=== PATIENT | male | born 1945 | race Caucasian/White ===

== ENCOUNTER → 2017-08-24 14:01 | Outpatient (CLI) | payer MEDICARE, SELFPAY ==
[2017-08-24 15:02] LABS: Absolute Lymphocyte Count 1.33 X10^3/ul (0.83-4.51); Absolute Neutrophil Count 4.2 X10^3/uL (2.0-7.7); Basophil# 0.06 X10^3/uL; Basophil% 0.9 % (0-1); Eosinophil# 0.25 X10^3/uL; Eosinophils% 3.7 % (0-5); Hematocrit 43.4 % (40-54); Hemoglobin 14.6 g/dl (13.0-16.5); Lymphocyte # 1.33 X10^3/ul (4.0); Lymphocyte % 19.9 % (19-41); Mean Corp Hgb Conc 33.6 g/gl (32-36); Mean Corpuscular Hgb 29.4 pg (27.0-32.0); Mean Corpuscular Volume 87.5 fL (80-94); Mean Platelet Vol. 11.6 fl (6.2-12.0); Monocyte% 11.9 % (0-10); Neutrophil # 4.24 X10^3/uL (2.7-7.7); Neutrophil % 63.3 % (47-70); Platelet Count 170 K/mm3 (150-450); RBC Distribution Width CV 14.1 % (11.6-14.6); RBC Distribution Width SD 44.6 fl (35.1-43.9); Red Blood Count 4.96 M/mm3 (4.6-6.2); White Blood Count 6.7 K/mm3 (4.4-11.0)
[2017-08-24 15:08] LABS: POSITIVE COUNT NO; POSITIVE DIFFERENTIAL NO; POSITIVE MORPHOLOGY NO
[2017-08-24 15:19] LABS: ALB/GLOB Ratio 1.1 RATIO (0.9-2.4); AST(SGOT) 30 U/L (15-37); Alanine Aminotransfer ALT/SGPT 67 U/L (16-61); Albumin, Serum 3.9 g/dL (3.2-5.0); Alkaline Phosphatase 59 U/L (45-117); Anion Gap 7 (5-15); BUN 23 mg/dL (7-18); BUN/Creat Ratio 18.5 RATIO (10-20); Chloride 106 mmol/L (98-107); Creatinine, Serum 1.24 mg/dL (0.70-1.30); EST Glomerular Filtration Rate 61 mL/min (>60); Est Glom Filt Rate - Afr Amer 74 mL/min (>60); Globulin 3.6 g/dL (2.2-4.2); Glucose 189 mg/dL (74-106); Potassium 4.8 mmol/L (3.5-5.1); Protein, Total 7.5 g/dL (6.4-8.2); Sodium Level 142 mmol/L (136-145); Thyroid Stim Hormone (TSH) 2.42 uIU/mL (0.358-3.74)
[2017-08-25 08:32] LABS: Vitamin D,25 Hydroxy 32.7 ng/mL (29.95-100.01)
== END ==
PROVIDERS: Family Provider Family Medicine Geriatric Medicine; PCP Family Medicine Geriatric Medicine; Visit Provider Family Medicine Geriatric Medicine
DX: E11.9 Type 2 diabetes mellitus without complications (principal); I10 Essential (primary) hypertension; E55.9 Vitamin D deficiency, unspecified
CPT/HCPCS: 36415; 80053; 82306; 84443; 85025

== ENCOUNTER 2017-09-21 18:44 | Inpatient (IN) | payer MEDICARE, OTHER, SELFPAY ==
[2017-09-21] VITALS (10 sets, daily range): BP systolic 110–139; BP diastolic 62–71; PULSE 70–83; RESP 13–20; TEMP 36.6–36.7; O2SAT 95–98; BMI 40.2; BMI 36.5; BMI 36.6
--- NOTE | 2017-09-21 16:12 | RAD_ITS ---
STUDY: X-RAY CHEST REASON FOR EXAM: Male, 71 years old. Chest pain TECHNIQUE: AP portable COMPARISON: None. FINDINGS: Diminished inspiratory effort is seen. Is minor scarring in the left lower lobe. No acute infiltration present.. There is no demonstrated pleural abnormality. Normal size heart. Normal mediastinum and j carlos. Normal visualized pulmonary arteries. Tortuous aortic arch and descending thoracic aorta. Dorsal spine demonstrates spondylosis Normal visualized ribs, clavicles, and shoulders. There is no demonstrated abnormality of the visualized soft tissue structures of the upper abdomen. RAD/Chest 1 View (Portable) IMPRESSION: No acute cardiopulmonary pathology Electronically Signed: Rich Valadez MD at 19:47 EDT , Service support ,
--- NOTE | 2017-09-21 19:04 | EKG12_ITS ---
Test Reason : CP Blood Pressure : / mmHG Vent. Rate : 080 BPM Atrial Rate : 080 BPM P-R Int : 258 ms QRS Dur : 094 ms QT Int : 362 ms P-R-T Axes : -06 -05 002 degrees QTc Int : 417 ms Sinus rhythm with 1st degree A-V block Otherwise normal ECG Confirmed by MELANY SAMSON, WILBER ([id number]), tape editor GEGE KAT ([id number]) on 09/24/2017 3:31:50 PM Referred By: ANAM
--- NOTE | 2017-09-21 19:07 | ED.VISSUMM ---
- ER Visit Summary Date of Service: 09/21/17 Chief Complaint: Chest pain History of Present Illness: The patient is a 71 M increasing frequency of chest tightness over the past week. Symptoms worse with light activity. No pain down the arms. Does complain of exertional dyspnea. No cough or wheeze. States he will get hiccups with the symptoms. Symptoms would go away when he rests. History of hypertension, diabetes, hypercholesterolemia. Remote tobacco 20 years ago. No family history of MIs at a young age. No stress test or heart cath in the past. No PE risk factors. Currently denies any symptoms. He takes a baby aspirin daily, took one this morning. Physical Examination: General: Alert and oriented ?3, no acute distress HEENT: Normocephalic, atraumatic. Moist mucosa membranes Neck: supple, nontender. Cardiovascular: Regular rate and rhythm, no murmurs Respiratory: Normal breath sounds, symmetric, no distress Abdomen: Soft, nontender, nondistended Extremities: Nontender, no edema, pulses intact ?4 Neuro: no focal neurological deficits. Test Results: EKG: Sinus rate of 80, no ST changes. T-wave flattening inferior leads, a small Q waves inferior leads. Troponin negative. Creatinine 1.38. Creatinine clearance of 54. Chest x-ray negative. Emergency Department Course and Treatment: Patient currently symptom-free. EKG chronic changes from comparison of July 2015. He was seen for flank pain at that time with a kidney stone. Cardiac workup negative. Creatinine 1.38. Creatinine 1.15-1.51 from previous labs. He was given additional aspirin. History concerns for stable angina with exertional symptoms. He has no PE risk factors. I spoke with covering sanitation associate, Dr. Stallworth discussed and reviewed the patient's history. He recommends 1 dose of Lovenox tonight, none in the morning. He recommended Brilinta 180 mg and plan for heart catheterizations in the morning after his evaluation. He requests to him to be n.p.o. at midnight. Currently hospitalist is on page for admission. Treatment Plan: [] Disposition: Admission Impression: Stable angina This note was generated with [employer] dictation software. It may contain incorrect words, spelling, and punctuation that were not noted in review of the chart prior to signing ED Disposition - Plan for ED Patient: Disposition: Acute Care Hospital [facility] Chief Complaint: Chest Pain Diagnosis: Stable angina Referrals: Max Nunez Chi, MD [Primary Care Provider] -
--- NOTE | 2017-09-21 19:11 | ED.DCSUM_ITS ---
- ER Visit Summary Date of Service: 09/21/17 Chief Complaint: Chest pain History of Present Illness: The patient is a 71 M increasing frequency of chest tightness over the past week. Symptoms worse with light activity. No pain down the arms. Does complain of exertional dyspnea. No cough or wheeze. States he will get hiccups with the symptoms. Symptoms would go away when he rests. History of hypertension, diabetes, hypercholesterolemia. Remote tobacco 20 years ago. No family history of MIs at a young age. No stress test or heart cath in the past. No PE risk factors. Currently denies any symptoms. He takes a baby aspirin daily, took one this morning. Physical Examination: General: Alert and oriented ?3, no acute distress HEENT: Normocephalic, atraumatic. Moist mucosa membranes Neck: supple, nontender. Cardiovascular: Regular rate and rhythm, no murmurs Respiratory: Normal breath sounds, symmetric, no distress Abdomen: Soft, nontender, nondistended Extremities: Nontender, no edema, pulses intact ?4 Neuro: no focal neurological deficits. Test Results: EKG: Sinus rate of 80, no ST changes. T-wave flattening inferior leads, a small Q waves inferior leads. Troponin negative. Creatinine 1.38. Creatinine clearance of 54. Chest x-ray negative. Emergency Department Course and Treatment: Patient currently symptom-free. EKG chronic changes from comparison of July 2015. He was seen for flank pain at that time with a kidney stone. Cardiac workup negative. Creatinine 1.38. Creatinine 1.15-1.51 from previous labs. He was given additional aspirin. History concerns for stable angina with exertional symptoms. He has no PE risk factors. I spoke with covering flower pot press operator, Dr. Stallworth discussed and reviewed the patient's history. He recommends 1 dose of Lovenox tonight, none in the morning. He recommended Brilinta 180 mg and plan for heart catheterizations in the morning after his evaluation. He requests to him to be n.p.o. at midnight. Currently hospitalist is on page for admission. Treatment Plan: [] Disposition: Admission Impression: Stable angina This note was generated with [employer] dictation software. It may contain incorrect words, spelling, and punctuation that were not noted in review of the chart prior to signing ED Disposition - Plan for ED Patient: Disposition: Acute Care Hospital [facility] Chief Complaint: Chest Pain Diagnosis: Stable angina Referrals: Max Nunez Chi, MD [Primary Care Provider] -
[2017-09-21] MEDS: Aspirin 81 MG TAB.CHEW 273 MG PO (19:19)
[2017-09-21 19:32] LABS: Absolute Lymphocyte Count 1.82 X10^3/ul (0.83-4.51); Absolute Neutrophil Count 5.6 X10^3/uL (2.0-7.7); Basophil# 0.03 X10^3/uL; Basophil% 0.4 % (0-1); Eosinophil# 0.22 X10^3/uL; Eosinophils% 2.7 % (0-5); Hematocrit 43.4 % (40-54); Hemoglobin 14.4 g/dl (13.0-16.5); Lymphocyte # 1.82 X10^3/ul (4.0); Mean Corp Hgb Conc 33.2 g/gl (32-36); Mean Corpuscular Hgb 29.3 pg (27.0-32.0); Mean Corpuscular Volume 88.4 fL (80-94); Mean Platelet Vol. 11.1 fl (6.2-12.0); Monocyte% 7.3 % (0-10); Neutrophil # 5.58 X10^3/uL (2.7-7.7); Neutrophil % 67.5 % (47-70); POSITIVE COUNT NO; POSITIVE DIFFERENTIAL NO; POSITIVE MORPHOLOGY NO; Platelet Count 163 K/mm3 (150-450); RBC Distribution Width CV 14.2 % (11.6-14.6); RBC Distribution Width SD 45.8 fl (35.1-43.9); Red Blood Count 4.91 M/mm3 (4.6-6.2); White Blood Count 8.3 K/mm3 (4.4-11.0)
[2017-09-21 19:46] LABS: International Normalized Ratio 1.1; Prothrombin Time (Protime)PT. 13.9 SECONDS (11.7-14.9)
[2017-09-21 19:47] LABS: Partial Thromboplast Time 29.9 Seconds (24.1-36.2)
[2017-09-21 19:57] LABS: Anion Gap 8 (5-15); BUN 28 mg/dL (7-18); BUN/Creat Ratio 20.3 RATIO (10-20); Calcium,Total 9.3 mg/dL (8.5-10.1); Chloride 110 mmol/L (98-107); Creatinine, Serum 1.38 mg/dL (0.70-1.30); EST Glomerular Filtration Rate 54 mL/min (>60); Est Glom Filt Rate - Afr Amer 65 mL/min (>60); Estimated Creatinine Clearance 37.92 ml/min; Glucose 124 mg/dL (74-106); Potassium 4.1 mmol/L (3.5-5.1); Sodium Level 143 mmol/L (136-145)
[2017-09-21] MEDS: TICAGRELOR 90 MG TABLET 180 MG PO (20:44)
[2017-09-21] MEDS: Enoxaparin 100 MG/ML Syringe SC (20:44)
--- NOTE | 2017-09-21 21:08 | PCM.HP.STD ---
Problem List (1) History of kidney stones Status: Chronic (2) Type 2 diabetes mellitus Status: Chronic (3) Hypothyroidism Status: Chronic (4) Hyperlipidemia Status: Chronic (5) Hypertension Status: Chronic (6) Stable angina Status: Acute History of Present Illness Date of Admission: 09/21/17 Chief Complaint: Chest pain. The patient is a 71 year old M with past medical history as mentioned above presented to the emergency room because of chest pain. Her symptoms started around 1 week ago with central chest pain, across his chest, comes on mainly on minimal exertion, relieved by rest, described as tightness, 4-5 out of 10 in severity, not radiating, no relieving factors and without other associated symptoms. He denied associated shortness of breath, palpitation, dizziness or lightheadedness. He denies syncope or presyncope. This pain has been going on for 1 week on and off and comes on mainly with minimal exertion. In the emergency department, his vital signs were stable. His routine blood work was remarkable for creatinine of 1.38, otherwise normal. Troponin was negative. EKG revealed normal sinus rhythm with first-degree AV block, VT interval of 258 ms and no acute ischemic changes. Chest x-ray showed no acute infiltrate, consolidation or effusion. He is being admitted for chest pain, angina pectoris for evaluation. Past Medical History Past Medical History (Chronic Problems): Chronic Problems History of kidney stones (Chronic) Type 2 diabetes mellitus (Chronic) Hypothyroidism (Chronic) Hyperlipidemia (Chronic) Hypertension (Chronic) Allergies morphine Allergy (Verified 09/21/17 18:47) Other tetracycline Allergy (Verified 09/21/17 18:47) Nausea/Vom/Diarrhea Home Medications: Ambulatory Orders Medication Instructions Recorded Aspirin [Aspirin, Baby] 162 mg PO DAILY@0800 07/28/15 Atorvastatin Calcium [Lipitor] 40 mg PO QHS 07/28/15 Diltiazem HCl [Diltiazem ER] 240 mg PO DAILY 07/28/15 Glimepiride [Amaryl] 4 mg PO BID 07/28/15 Losartan/Hydrochlorothiazide 1 tab PO DAILY 07/28/15 [Hyzaar 100-12.5 Tablet] Metformin(XR) [Glucophage Xr] 1,000 mg PO BID 07/28/15 Multivitamin [Daily Multiple 1 each PO DAILY 07/28/15 Vitamin] Levothyroxine [Synthroid] 25 mcg PO DAILY 09/21/17 Surgical History: cholecystectomy Psychiatric History: No pertinent psych hx Lives: Spouse/ Significant Other Smoking Status: Former smoker Alcohol: None Drugs: None - *Family History Maternal History Items: No pertinent history Paternal History Items: No pertinent history Review of Systems Constitutional: Denies: Anorexia, Chills, Fever, Weakness Eyes: Denies: Blurred vision, Double vision, Drainage, Redness HEENT: Denies: Difficulty Hearing, Dysphasia, Ear Pain, Eye Pain, Nasal Congestion, Sore Throat Cardiovascular: Reports: Chest Pain, Chest Tightness. Denies: Heaviness, Light Headedness, Orthopnea, Paroxysmal Noc. Dyspnea, Syncope Respiratory: Denies: Cough, Hemoptysis, Pleuritic Pain, Shortness of Breath, Sputum production, Wheezing Gastrointestinal: Denies: Abdominal Pain, Constipation, Diarrhea, Nausea, Vomiting Genitourinary: Denies: Dysuria, Frequency, Hematuria Musculoskeletal: Denies: Arm Pain, Back Pain, Foot Pain Skin: Denies: Dryness, Rash Neurological: Denies: Balance problems, Blurred vision, Double vision, Change in Speech, Confusion, Incoordination, Numbness Psychiatric: Denies: Anxiety, Depression Endocrine: Denies: Change in Body Habitus, Polydipsia VTE Information - Inpt Only VTE Present on Admission: No VTE Mechan Device Prophylaxis: None VTE Pharm Prophylaxis ordered?: Yes Patient Problems: Active and Suspected Problems Stable angina (Acute) - Physical Exam General: Alert, Oriented x3, Cooperative, No apparent distress HEENT: Atraumatic, PERRLA, EOMI Oral: Moist Mucosa, No Gingival or Mucosal Lesions/ Ulcerations Neck: Supple, No JVD, Negative Carotid Bruits, Trachea Midline, Thyroid Normal Size and Texture Lungs: Clear to auscultation, Normal air movement, No rhonchi, No wheeze, No rales Cardiovascular: Regular rate, Regular Rhythm, Normal S1, Normal S2, No murmurs, PMI Normal Abdomen: Bowel Sounds Present, Soft, Non Tender, Non-Distended, No Hepato-splenomegaly Extremities: No clubbing, No cyanosis, No edema Skin: No rashes, No breakdown Lymphatic: No Cervical, Supraclavicular, or Inguinal Adenopathy Neurological: Cranial nerves II-XII grossly intact, Motor Exam 5/5 strength throughout Psych/Mental Status: Normal Affect, Appropriate, Alert and oriented to time, place, person, mood and affect Vital Signs Temp Pulse Resp BP Pulse Ox 97.9 F 77 16 110/71 97 09/21/17 18:45 09/21/17 21:01 09/21/17 21:01 09/21/17 21:01 09/21/17 21:01 Oxygen Flow Rate (L/min) 2 Oxygen Delivery Method Nasal Cannula Weight: 220 lb Body Mass Index (BMI) 40.2 Laboratory Tests Past 24 Hrs 09/21/17 09/21/17 09/21/17 18:54 18:54 18:54 WBC 8.3 RBC 4.91 Hgb 14.4 Hct 43.4 MCV 88.4 MCH 29.3 MCHC 33.2 RDW 14.2 RDW Differential 45.8 H Plt Count 163 MPV 11.1 Immature Gran % (Auto) 0.100 Neut % (Auto) 67.5 Lymph % (Auto) 22.0 Cocke % (Auto) 7.3 Eos % (Auto) 2.7 Baso % (Auto) 0.4 Absolute Neuts (auto) 5.6 Absolute Lymphs (auto) 1.82 Total Counted Not Reportable PT 13.9 INR 1.1 APTT 29.9 Sodium 143 Potassium 4.1 Chloride 110 H Carbon Dioxide 25.0 Anion Gap 8 BUN 28 H Creatinine 1.38 H Estim Creat Clear Calc 37.92 Est GFR (MDRD) Af Amer 65 Est GFR (MDRD) Non-Af 54 L BUN/Creatinine Ratio 20.3 H Glucose 124 H Calcium 9.3 Troponin I < 0.02 Clinical Impression(s) from Imaging Studies Chest X-Ray 09/21/17 16:12 IMPRESSION: No acute cardiopulmonary pathology Electronically Signed: Rich Valadez MD at 19:47 EDT , Service support , Assessment/Plan Active and Suspected Problems Stable angina (Acute) This is a 71 years old male patient presented to the emergency room because of chest pain which seemed to be typical for unstable angina pectoris with past history of hypertension, type 2 diabetes mellitus and hyperlipidemia as well as ex-smoker and he is being admitted for evaluation. #1 chest pain/probable stable angina: Risk factors are age, history of hypertension, type 2 diabetes and hyperlipidemia. CORY score is 3 points based on his age, history of hypertension, hyperlipidemia and diabetes as well as use of aspirin in the past 7 days. His EKG revealed no acute ischemic changes, first troponin is negative. Chest x-ray without acute findings. The ER physician spoke with Dr. Stallworth who was front office agent and he recommended cardiac catheterization tomorrow morning. Patient received 1 dose of therapeutic Lovenox and Brilinta in the emergency department according to cardiac recommendations. Plan: Admit to PCU, cardiac monitoring, serial cardiac enzymes, repeat EKG tomorrow morning, cardiology consult, IV fluids, repeat BMP tomorrow morning. #2 hypertension: Blood pressure stable, continue Cardizem, losartan and HCTZ. #3 type 2 diabetes mellitus: ADA diet, Accu-Cheks, insulin sliding scale, continue glimepiride, hold metformin. #4 hyperlipidemia: Continue statins. #5 hypothyroidism: Continue levothyroxine. #6 DVT prophylaxis: Subcu Lovenox. This note was generated with [employer] dictation software. It may contain incorrect words, spelling, and punctuation that were not noted in checking the note before signing. Code Visit Inpatient E&M: 05594 Init Hosp L3
--- NOTE | 2017-09-21 21:12 | HP.PCM_ITS ---
Problem List (1) History of kidney stones Status: Chronic (2) Type 2 diabetes mellitus Status: Chronic (3) Hypothyroidism Status: Chronic (4) Hyperlipidemia Status: Chronic (5) Hypertension Status: Chronic (6) Stable angina Status: Acute History of Present Illness Date of Admission: 09/21/17 Chief Complaint: Chest pain. The patient is a 71 year old M with past medical history as mentioned above presented to the emergency room because of chest pain. Her symptoms started around 1 week ago with central chest pain, across his chest, comes on mainly on minimal exertion, relieved by rest, described as tightness, 4-5 out of 10 in severity, not radiating, no relieving factors and without other associated symptoms. He denied associated shortness of breath, palpitation, dizziness or lightheadedness. He denies syncope or presyncope. This pain has been going on for 1 week on and off and comes on mainly with minimal exertion. In the emergency department, his vital signs were stable. His routine blood work was remarkable for creatinine of 1.38, otherwise normal. Troponin was negative. EKG revealed normal sinus rhythm with first-degree AV block, NM interval of 258 ms and no acute ischemic changes. Chest x-ray showed no acute infiltrate, consolidation or effusion. He is being admitted for chest pain, angina pectoris for evaluation. Past Medical History Past Medical History (Chronic Problems): Chronic Problems History of kidney stones (Chronic) Type 2 diabetes mellitus (Chronic) Hypothyroidism (Chronic) Hyperlipidemia (Chronic) Hypertension (Chronic) Allergies morphine Allergy (Verified 09/21/17 18:47) Other tetracycline Allergy (Verified 09/21/17 18:47) Nausea/Vom/Diarrhea Home Medications: Ambulatory Orders Medication Instructions Recorded Aspirin [Aspirin, Baby] 162 mg PO DAILY@0800 07/28/15 Atorvastatin Calcium [Lipitor] 40 mg PO QHS 07/28/15 Diltiazem HCl [Diltiazem ER] 240 mg PO DAILY 07/28/15 Glimepiride [Amaryl] 4 mg PO BID 07/28/15 Losartan/Hydrochlorothiazide 1 tab PO DAILY 07/28/15 [Hyzaar 100-12.5 Tablet] Metformin(XR) [Glucophage Xr] 1,000 mg PO BID 07/28/15 Multivitamin [Daily Multiple 1 each PO DAILY 07/28/15 Vitamin] Levothyroxine [Synthroid] 25 mcg PO DAILY 09/21/17 Surgical History: cholecystectomy Psychiatric History: No pertinent psych hx Lives: Spouse/ Significant Other Smoking Status: Former smoker Alcohol: None Drugs: None - *Family History Maternal History Items: No pertinent history Paternal History Items: No pertinent history Review of Systems Constitutional: Denies: Anorexia, Chills, Fever, Weakness Eyes: Denies: Blurred vision, Double vision, Drainage, Redness HEENT: Denies: Difficulty Hearing, Dysphasia, Ear Pain, Eye Pain, Nasal Congestion, Sore Throat Cardiovascular: Reports: Chest Pain, Chest Tightness. Denies: Heaviness, Light Headedness, Orthopnea, Paroxysmal Noc. Dyspnea, Syncope Respiratory: Denies: Cough, Hemoptysis, Pleuritic Pain, Shortness of Breath, Sputum production, Wheezing Gastrointestinal: Denies: Abdominal Pain, Constipation, Diarrhea, Nausea, Vomiting Genitourinary: Denies: Dysuria, Frequency, Hematuria Musculoskeletal: Denies: Arm Pain, Back Pain, Foot Pain Skin: Denies: Dryness, Rash Neurological: Denies: Balance problems, Blurred vision, Double vision, Change in Speech, Confusion, Incoordination, Numbness Psychiatric: Denies: Anxiety, Depression Endocrine: Denies: Change in Body Habitus, Polydipsia VTE Information - Inpt Only VTE Present on Admission: No VTE Mechan Device Prophylaxis: None VTE Pharm Prophylaxis ordered?: Yes Patient Problems: Active and Suspected Problems Stable angina (Acute) - Physical Exam General: Alert, Oriented x3, Cooperative, No apparent distress HEENT: Atraumatic, PERRLA, EOMI Oral: Moist Mucosa, No Gingival or Mucosal Lesions/ Ulcerations Neck: Supple, No JVD, Negative Carotid Bruits, Trachea Midline, Thyroid Normal Size and Texture Lungs: Clear to auscultation, Normal air movement, No rhonchi, No wheeze, No rales Cardiovascular: Regular rate, Regular Rhythm, Normal S1, Normal S2, No murmurs, PMI Normal Abdomen: Bowel Sounds Present, Soft, Non Tender, Non-Distended, No Hepato- splenomegaly Extremities: No clubbing, No cyanosis, No edema Skin: No rashes, No breakdown Lymphatic: No Cervical, Supraclavicular, or Inguinal Adenopathy Neurological: Cranial nerves II-XII grossly intact, Motor Exam 5/5 strength throughout Psych/Mental Status: Normal Affect, Appropriate, Alert and oriented to time, place, person, mood and affect Vital Signs Temp Pulse Resp BP Pulse Ox 97.9 F 77 16 110/71 97 09/21/17 18:45 09/21/17 21:01 09/21/17 21:01 09/21/17 21:01 09/21/17 21:01 Oxygen Flow Rate (L/min) 2 Oxygen Delivery Method Nasal Cannula Weight: 220 lb Body Mass Index (BMI) 40.2 Laboratory Tests Past 24 Hrs 09/21/17 09/21/17 09/21/17 18:54 18:54 18:54 WBC 8.3 RBC 4.91 Hgb 14.4 Hct 43.4 MCV 88.4 MCH 29.3 MCHC 33.2 RDW 14.2 RDW Differential 45.8 H Plt Count 163 MPV 11.1 Immature Gran % (Auto) 0.100 Neut % (Auto) 67.5 Lymph % (Auto) 22.0 Patrick % (Auto) 7.3 Eos % (Auto) 2.7 Baso % (Auto) 0.4 Absolute Neuts (auto) 5.6 Absolute Lymphs (auto) 1.82 Total Counted Not Reportable PT 13.9 INR 1.1 APTT 29.9 Sodium 143 Potassium 4.1 Chloride 110 H Carbon Dioxide 25.0 Anion Gap 8 BUN 28 H Creatinine 1.38 H Estim Creat Clear Calc 37.92 Est GFR (MDRD) Af Amer 65 Est GFR (MDRD) Non-Af 54 L BUN/Creatinine Ratio 20.3 H Glucose 124 H Calcium 9.3 Troponin I < 0.02 Clinical Impression(s) from Imaging Studies Chest X-Ray 09/21/17 16:12 IMPRESSION: No acute cardiopulmonary pathology Electronically Signed: Rich Valadez MD at 19:47 EDT , Service support , Assessment/Plan Active and Suspected Problems Stable angina (Acute) This is a 71 years old male patient presented to the emergency room because of chest pain which seemed to be typical for unstable angina pectoris with past history of hypertension, type 2 diabetes mellitus and hyperlipidemia as well as ex-smoker and he is being admitted for evaluation. #1 chest pain/probable stable angina: Risk factors are age, history of hypertension, type 2 diabetes and hyperlipidemia. CORY score is 3 points based on his age, history of hypertension, hyperlipidemia and diabetes as well as use of aspirin in the past 7 days. His EKG revealed no acute ischemic changes, first troponin is negative. Chest x-ray without acute findings. The ER physician spoke with Dr. Stallworth who was machine stone polisher apprentice and he recommended cardiac catheterization tomorrow morning. Patient received 1 dose of therapeutic Lovenox and Brilinta in the emergency department according to cardiac recommendations. Plan: Admit to PCU, cardiac monitoring, serial cardiac enzymes , repeat EKG tomorrow morning, cardiology consult, IV fluids, repeat BMP tomorrow morning. #2 hypertension: Blood pressure stable, continue Cardizem, losartan and HCTZ. #3 type 2 diabetes mellitus: ADA diet, Accu-Cheks, insulin sliding scale, continue glimepiride, hold metformin. #4 hyperlipidemia: Continue statins. #5 hypothyroidism: Continue levothyroxine. #6 DVT prophylaxis: Subcu Lovenox. This note was generated with [employer] dictation software. It may contain incorrect words, spelling, and punctuation that were not noted in checking the note before signing. Code Visit Inpatient E&M: 95144 Init Hosp L3
[2017-09-21] MEDS: Atorvastatin Calcium 40 MG Tablet PO (23:03)
[2017-09-21] MEDS: 0.9% Normal Saline 1,000 ML 75 ML IV (23:08)
[2017-09-22] VITALS (27 sets, daily range): BP systolic 104–149; BP diastolic 49–79; PULSE 62–77; RESP 8–20; TEMP 36.6–37; O2SAT 93–97; BMI 37.5
[2017-09-22 00:51] LABS: Bedside Glucose 215 mg/dL (70-110)
[2017-09-22 02:56] LABS: Anion Gap 9 (5-15); BUN 26 mg/dL (7-18); BUN/Creat Ratio 23.6 RATIO (10-20); Calcium,Total 9.2 mg/dL (8.5-10.1); Chloride 110 mmol/L (98-107); EST Glomerular Filtration Rate 70 mL/min (>60); Est Glom Filt Rate - Afr Amer 85 mL/min (>60); Estimated Creatinine Clearance 51.58 ml/min; Glucose 122 mg/dL (74-106); Potassium 3.5 mmol/L (3.5-5.1); Sodium Level 143 mmol/L (136-145)
--- NOTE | 2017-09-22 05:55 | EKG12_ITS ---
Test Reason : AM EKG Blood Pressure : / mmHG Vent. Rate : 068 BPM Atrial Rate : 068 BPM P-R Int : 250 ms QRS Dur : 084 ms QT Int : 394 ms P-R-T Axes : 028 -08 035 degrees QTc Int : 418 ms Sinus rhythm with 1st degree A-V block Otherwise normal ECG When compared with ECG of 21-SEP-2017 18:44, MANUAL COMPARISON REQUIRED, DATA IS UNCONFIRMED Confirmed by MELANY SAMSON, WILBER ([id number]), newspaper copy editor GEGE KAT ([id number]) on 09/24/2017 3:59:15 PM Referred By: CHARLIE Confirmed By:WILBER MOSLEY MD
[2017-09-22] MEDS: Levothyroxine 25 MCG TABLET PO (06:02)
[2017-09-22 06:45] LABS: Absolute Lymphocyte Count 1.65 X10^3/ul (0.83-4.51); Absolute Neutrophil Count 4.4 X10^3/uL (2.0-7.7); Basophil# 0.04 X10^3/uL; Basophil% 0.6 % (0-1); Eosinophil# 0.17 X10^3/uL; Eosinophils% 2.4 % (0-5); Hematocrit 41.2 % (40-54); Hemoglobin 13.5 g/dl (13.0-16.5); Lymphocyte # 1.65 X10^3/ul (4.0); Lymphocyte % 23.6 % (19-41); Mean Corp Hgb Conc 32.8 g/gl (32-36); Mean Corpuscular Volume 88.6 fL (80-94); Mean Platelet Vol. 11.5 fl (6.2-12.0); Neutrophil % 63.1 % (47-70); Platelet Count 148 K/mm3 (150-450); RBC Distribution Width CV 14.3 % (11.6-14.6); RBC Distribution Width SD 46.1 fl (35.1-43.9); Red Blood Count 4.65 M/mm3 (4.6-6.2)
[2017-09-22 06:54] LABS: International Normalized Ratio 1.2; Prothrombin Time (Protime)PT. 14.8 SECONDS (11.7-14.9)
[2017-09-22 06:55] LABS: Partial Thromboplast Time 36.1 Seconds (24.1-36.2)
[2017-09-22 07:05] LABS: Bedside Glucose 140 mg/dL (70-110)
[2017-09-22 07:27] LABS: POSITIVE COUNT NO; POSITIVE DIFFERENTIAL NO; POSITIVE MORPHOLOGY NO
--- NOTE | 2017-09-22 08:06 | PCM.CONS.C ---
Problem List (1) Angina pectoris Status: Acute (2) Hyperlipidemia Status: Chronic (3) Hypertension Status: Chronic (4) Type 2 diabetes mellitus Status: Chronic Reason for Consult Date of Consultation: 09/22/17 History of Present Illness: The patient is a 71 year old male with a past medical history of hyperlipidemia, hypertension, and diabetes mellitus who presents with symptoms concerning for angina pectoris. He notes over the last approximately 1 week, with exertion, such as walking a level block, playing ball outside with his grandson, etc., that he has been developing chest tightness associated with shortness of breath/dyspnea relieved with rest. This appears to be accelerating and becoming more prominent with less activity. He has not described any resting or nocturnal symptoms. There has been no obvious orthopnea, PND, or peripheral pitting edema. There has been no near syncope or syncope. He does state with his symptoms he develops associated hiccups and belching. He notes these symptoms also go away when he stops and rests. He presented to the emergency department for evaluation. His troponin I level was negative. An ECG was performed which demonstrated sinus rhythm with a first-degree AV block and a nonspecific T-wave abnormality. It has subsequently been repeated with no significant change. [] Past Medical History Allergies/Adverse Reactions: Allergies morphine Allergy (Verified 09/21/17 18:47) Other tetracycline Allergy (Verified 09/21/17 18:47) Nausea/Vom/Diarrhea Home Medications: Ambulatory Orders Medication Instructions Recorded Aspirin [Aspirin, Baby] 162 mg PO DAILY@0800 07/28/15 Atorvastatin Calcium [Lipitor] 40 mg PO QHS 07/28/15 Diltiazem HCl [Diltiazem ER] 240 mg PO DAILY 07/28/15 Glimepiride [Amaryl] 4 mg PO BIDCM 07/28/15 Losartan/Hydrochlorothiazide 1 tab PO DAILY 07/28/15 [Hyzaar 100-12.5 Tablet] Metformin(XR) [Glucophage Xr] 1,000 mg PO BID 07/28/15 Multivitamin [Daily Multiple 1 each PO DAILY 07/28/15 Vitamin] Levothyroxine [Synthroid] 25 mcg PO DAILY 09/21/17 Past Medical History (Chronic Problems): Chronic Problems History of kidney stones (Chronic) Type 2 diabetes mellitus (Chronic) Hypothyroidism (Chronic) Hyperlipidemia (Chronic) Hypertension (Chronic) Surgical History: cholecystectomy Psychiatric History: No pertinent psych hx - *Family History Maternal History Items: No pertinent history Paternal History Items: No pertinent history Lives: Spouse/ Significant Other Smoking Status: Former smoker Alcohol: None Drugs: None Review of Systems - Review of Systems General: Denies: Fever, Night Sweats, Fatigue Cardiovascular: Reports: Chest Discomfort, Chest Discomfort with Exertion, Shortness of Breath, Shortness of Breath with Exertion. Denies: Orthopnea, PND, Peripheral Edema, Palpitations, Lightheadedness, Dizziness, Near Syncope, Syncope Respiratory: Reports: Shortness of Breath. Denies: Cough, Sputum Production, Hemoptysis Gastrointestinal: Denies: Hematemesis, Hematochezia, Melena Genitourinary: Denies: Dysuria, Hematuria Skin: Denies: Rash Subjectve: A 1-year-old white male who appears to be resting comfortably in no acute distress. Objective: Vital Signs Temp Pulse Resp BP Pulse Ox 97.8 F 65 12 127/70 H 95 09/22/17 04:15 09/22/17 04:15 09/22/17 04:15 09/22/17 04:15 09/22/17 08:04 Oxygen Flow Rate (L/min) 1.5 Oxygen Delivery Method Nasal Cannula Weight: 212 lb 15.465 oz Body Mass Index (BMI) 36.5 Intake and Output for Last 24 Hours 09/20/17 09/21/17 09/22/17 23:59 23:59 23:59 Intake Total 88.4 / 88.4 487 / 487 Output Total 0 / 0 Balance 88.4 / 88.4 487 / 487 General: Healthy Appearing, Awake, Alert, Oriented x 3, Cooperative, No Acute Distress HEENT: Atraumatic, PERRL, EOMI, Sclera Non Icteric Neck: Supple, Good ROM, No JVD Lungs: Clear to auscultation Cardiovascular: Regular Rhythm, Normal S1, Normal S2 Vascular: No Carotid Bruits Abdomen: Bowel Sounds Present, Soft, Non Tender Extremities: No Cyanosis, No Clubbing, No edema Neurological: No Focal Motor or Sensory Deficit Psych/Mental Status: Appropriate 09/21/17 23:05: Troponin I < 0.02 09/22/17 02:15: Sodium 143, Potassium 3.5, Chloride 110 H, Carbon Dioxide 24.0, Anion Gap 9, BUN 26 H, Creatinine 1.10, Est GFR (MDRD) Af Amer 85, Est GFR (MDRD) Non-Af 70, BUN/Creatinine Ratio 23.6 H, Glucose 122 H, Calcium 9.2 09/22/17 02:15: Troponin I 0.02 09/22/17 06:25: Troponin I < 0.02 09/22/17 06:25: WBC 7.0, RBC 4.65, Hgb 13.5, Hct 41.2, MCV 88.6, MCH 29.0, MCHC 32.8, RDW 14.3, RDW Differential 46.1 H, Plt Count 148 L, MPV 11.5, Immature Gran % (Auto) 0.300, Neut % (Auto) 63.1, Lymph % (Auto) 23.6, [place] % (Auto) 10.0, Eos % (Auto) 2.4, Baso % (Auto) 0.6, Absolute Neuts (auto) 4.4, Total Counted Not Reportable 09/22/17 06:25: PT 14.8, INR 1.2, APTT 36.1 Rhythm: Sinus rhythm EKG: As noted above CXR: Preliminary evaluation: No acute cardiopulmonary disease process: Please see official report Assessment/Plan 1. Angina pectoris: Accelerating The patient does have cardiovascular risk factors. He have symptoms concerning for accelerating angina pectoris. He has been undergoing noninvasive evaluation with cardiac enzymes and ECGs. They have been without acute changes. Based upon his cardiovascular risk factors and his accelerating symptoms, with no other obvious etiology to explain them at this time, it does not appear unreasonable to perform further cardiovascular evaluation including diagnostic cardiac catheterization. The procedure and risks were discussed with the patient. He was agreeable to this approach. Pending upon the findings he may need further cardiovascular versus noncardiovascular evaluation. 2. Hyperlipidemia He is on lipid-lowering therapy. This will be continued and adjusted as needed. 3. Hypertension He is on antihypertensive therapy. His blood pressures can be monitored. His medications can be adjusted as needed. 4. Diabetes mellitus The patient will continue under the care of internal medicine. Comment: The above was discussed with the patient and with the [facility] emergency department staff. This note was generated with [employer] software. It may contain incorrect words, spelling, and punctuation that were not noted in checking the note before signing.
[2017-09-22] MEDS: TICAGRELOR 90 MG TABLET PO ×2 (09:21→21:07)
[2017-09-22] MEDS: Aspirin 81 MG TAB.CHEW 162 MG PO (09:21)
[2017-09-22] MEDS: dilTIAZem CD 240 MG Capsule PO (09:21)
[2017-09-22] MEDS: Losartan Potassium 100 MG Tablet PO (09:22)
--- NOTE | 2017-09-22 09:25 | NURSING ---
report given to dock or pier laborer RN
[2017-09-22] MEDS: 0.9% Normal Saline 1,000 ML 75 ML IV (09:26)
[2017-09-22 09:27] LABS: Color, Urine Yellow (Yellow); Glucose, Dipstick Normal (Normal); Ketone-Dipstick Negative (Negative); Leukocyte Esterase-Dipstick Negative /ul (Negative); Nitrite-Dipstick Negative (Negative); Occult Blood-Urine Negative /ul (Negative); Protein-Dipstick Negative (Negative); Urine Bilirubin Dipstick Negative (Negative); Urine Clarity Clear (Clear); Urine Urobilinogen Normal (Normal)
--- NOTE | 2017-09-22 10:56 | CL.I_ITS ---
Patient Name: EMMA CERDA Study Date: 09/22/2017 Performing: Pancho Mccracken MD Ht: 64.17 inches 163 cm : 1945 Wt: 213.85 lbs 97 kg Age: 71 Gender: male BSA: 2.02 PROCEDURE(S) PERFORMED [id number] W OR WO PTCA, SINGLE CORONARY ARTERY CLINICAL PROFILE AND CO-MORBIDITIES Indications: ACS > 24 hrs, Other Heart Failure: None Stress/Imaging Stress/Image Study Performed: No Angina Classification Anginal Classification w/in 2 Weeks: CCS III CAD Presentations: Unstable angina. Comorbidities/Risk Factors: Hypertension Dyslipidemia CONCLUSIONS Successful PTCA/YUMIKO of the of mid RCA with 4.0 x 20 Promus stent, post dilated with a 4.0 x 8 NC Ball oon; 85%-->0%, no dissection. RECOMMENDATIONS Highly recommend quitting all tobacco products Follow up with primary hydraulic plumber Risk factor modification ASA Indefinitley Brilinta for at least 12 months Routine post interventional care Refer for Outpatient Cardiac Rehab Manual sheath removal per protocol Follow up with Dr. Stallworth DESCRIPTION OF PROCEDURE The patient arrived to the procedure lab. The risks and benefits of the procedure as well as a full d escription of our services here and current unavailability of surgical backup were fully explained to the patient and/or their significant other prior to the catheterization. The Timeout was completed, verifying the correct patient and procedure. The patient's procedural site was prepped and draped in the usual fashion. Local anesthetic was given subcutaneously to right groin region with Lidocaine 2% Using a modified Seldinger technique,arterial access was obtained via the right femoral artery, a 4Fr sheath was inserted Left Coronary Artery selective angiography was performed in multiple views using a 4 Fr. JL5 catheter. Right Coronary Artery selective angiography was then performed in multiple vie ws using a 4 Fr. 3DRC catheter. Left Ventriculography was performed in JEAN projection using a 4 Fr. P igtail catheter.The images were reviewed and options discussed. A decision was then made to proceed w ith an Intervention, IVUS or other adjunct procedure. Arterial sheath was exchanged for a 6 Fr Sheath Arterial sheath was exchanged for a 6 Fr Sheath hs11 Guide catheter was inserted and engaged into the RCA. bmw universal Guide wire was advanced to the A. 2.0 x 12 emerge Balloon catheter was inserted. Balloon catheter was advanced across lesion in the right coronary, mid. PTCA balloon inflated at 10 atms for 11 secs 4.0x20 synergy Drug Eluting stent w as inserted 4.0x 20 synergy Drug Eluting stent was advanced across the lesion in the right coronary, mid. 4.0x 8 emerge nc Balloon catheter was inserted.. . The arterial sheath was sutured in place and capped. INTERVENTION INFORMATION LESION SITE: RCA (Mid) Lesion Complexity: High/C, lesion at bifurcation: No, thrombus present: No, lesion length: 20 mm, cul prit lesion: Yes Pre Stenosis: 85 % Pre intervention CORY flow: 3 PROCEDURE: Drug Eluting Stent with pre and post dilatation Post Stenosis: 0 % Post intervention CORY flow: 3 Lesion Devices: CENTERSONIC 6 Fr HSII 100cm Guide Catheter Smith .014 BMW Mcloud Straight 190cm Scout Sci EMERGE MR 2.00x12 BALLOON Scout Sci Synergy MR YUMIKO 4.00x20 Scout Sci NC EMERGE MR 4.00x08 BALLOON COMPLICATIONS No Complications PROCEDURE MEDICATIONS Versed 1 mg IV Oxygen: 2 L/min via nasal cannula Heparin 6000 unit(s) IV 09/22/2017 10:29:22 Nitro 200 mcg IC 09/22/2017 10:30:56 Nitro 200 mcg IC 09/22/2017 10:30:56 Nitro 200 mcg IC 09/22/2017 10:35:43 SUMMARY OF HEMODYNAMIC DATA Time AIR REST ECG 09:55:13 AO 142/81 (107) SA 10:12:51 LV 156/10, 39 10:19:15 LV 154/8, 35 10:19:22 LV 154/12, 40 10:20:16 LV 153/11, 36 10:20:23 LVp 152/9, 31 10:20:28 AOp 155/81 (112) 10:20:33 Signed By Pancho Mccracken MD On 09/22/2017 10:55:51 Pancho Mccracken MD
[2017-09-22] MEDS: 0.9% Normal Saline 1,000 ML 150 ML IV (11:00)
--- NOTE | 2017-09-22 11:00 | EKG12_ITS ---
Test Reason : AM Blood Pressure : / mmHG Vent. Rate : 066 BPM Atrial Rate : 066 BPM P-R Int : 250 ms QRS Dur : 088 ms QT Int : 404 ms P-R-T Axes : 004 -12 020 degrees QTc Int : 423 ms Sinus rhythm with 1st degree A-V block Inferior infarct , age undetermined Abnormal ECG When compared with ECG of 22-SEP-2017 11:22, MANUAL COMPARISON REQUIRED, DATA IS UNCONFIRMED Confirmed by MELANY SAMSON, WILBER ([id number]), proposal editor GEGE KAT ([id number]) on 09/27/2017 2:39:49 PM Referred By: YONY Confirmed By:WILBER MOSLEY MD
[2017-09-22 11:16] LABS: ACT Activated Clotting Time 230 sec (74-137)
[2017-09-22 12:00] LABS: Hematocrit 38.9 % (40-54); Hemoglobin 12.9 g/dl (13.0-16.5); Mean Corp Hgb Conc 33.2 g/gl (32-36); Mean Corpuscular Hgb 29.4 pg (27.0-32.0); Mean Corpuscular Volume 88.6 fL (80-94); Mean Platelet Vol. 11.5 fl (6.2-12.0); Platelet Count 145 K/mm3 (150-450); RBC Distribution Width CV 14.1 % (11.6-14.6); RBC Distribution Width SD 45.1 fl (35.1-43.9); Red Blood Count 4.39 M/mm3 (4.6-6.2); Scan Indicated on CBC? Y/N NO; White Blood Count 7.2 K/mm3 (4.4-11.0)
[2017-09-22 12:06] LABS: CPK Total, Creatine Kinase 78 U/L (39-308)
[2017-09-22 12:25] LABS: ACT Activated Clotting Time 153 sec (74-137)
--- NOTE | 2017-09-22 14:12 | CRPHASE1 ---
Patient Data/Charges Mail Distribution Scheme Examiner:: Dr. Mccracken Refer Phase II:: Yes Admit Date:: 09/22/17 Phase II Referral:: [facility] Risk Factors/Lifestyle Hx Hypertension: Yes Hx Diabetes Mellitus Type 2: Yes Hx Dyslipidemia: Yes Hx Obesity: Yes Height: 1.6 m Weight:: 96.162 kg BMI: 37.5 Phase I Education Given On:: [place], Nutrition, Antiplatelet medication, CHF, Smoking cessation, Diabetes - Type I, Diabetes - Type II Issues Affecting Care:: None Knowledge of Condition:: Yes Hospital Course Pain Description: Tightness Cardiac Cath Date:: 09/22/17 Medical/Surgical History Diabetes Type II:: Yes Hypertension:: Yes Dyslipidemia:: Yes PTCA:: Yes Discharge/Home/Social Eval Discharge Disposition: Home
--- NOTE | 2017-09-22 14:17 | CRPHASE1_ITS ---
Patient Data/Charges Education Site Manager:: Dr. Mccracken Refer Phase II:: Yes Admit Date:: 09/22/17 Phase II Referral:: [facility] Risk Factors/Lifestyle Hx Hypertension: Yes Hx Diabetes Mellitus Type 2: Yes Hx Dyslipidemia: Yes Hx Obesity: Yes Height: 1.6 m Weight:: 96.162 kg BMI: 37.5 Phase I Education Given On:: [place], Nutrition, Antiplatelet medication, CHF, Smoking cessation, Diabetes - Type I, Diabetes - Type II Issues Affecting Care:: None Knowledge of Condition:: Yes Hospital Course Pain Description: Tightness Cardiac Cath Date:: 09/22/17 Medical/Surgical History Diabetes Type II:: Yes Hypertension:: Yes Dyslipidemia:: Yes PTCA:: Yes Discharge/Home/Social Eval Discharge Disposition: Home
--- NOTE | 2017-09-22 14:20 | CRPH1.INST_ITS ---
General Education CAD and cardiac anatomy and function:: Patient communicates acknowledgment Explanation of diagnoses and procedures:: Patient communicates acknowledgment Sign/Symptoms of AL:: Patient communicates acknowledgment Antiplatelet therapy: Patient communicates acknowledgment Proper use of NTG-SL: Not instructed Emergency procedures and activation of EMS: Patient communicates acknowledgment Compliance of all prescribed medications: Patient communicates acknowledgment Smoking Nicotine/Smoking Response Code:: Patient communicates acknowledgment Dyslipidemia Patient Dyslipidemia Risk Factors Are:: Total Cholesterol, Triglycerides Dyslipidemia Response Code:: Patient communicates acknowledgment Overweight/Obesity Patient Overweight/Obesity Risk Factors Are:: Overweight = 26-29 Recommendations Include:: Weight loss of 5-10%, Reduced calorie diet, Exercise 5 -7 times/week Overweight/Obesity:: Patient communicates acknowledgment Hypertension Recommendations Include:: Maintain BP <130/85, BP <130/80 if diabetic, DASH dietary guidelines, Decrease/maintain normal body weight, Moderation of ETOH Hypertension:: Patient communicates acknowledgment Heart Disease Heart Disease Response Code:: Patient communicates acknowledgment Diabetes Patient Diabetes Risk Factors Are:: Elevated blood sugars Recommendations Include:: Maintain fasting blood sugars 70-110 md/dL, Maintain HgbA1c of 6% or less, Monitor blood sugar as prescribed, Diabetic dietary guidelines, Decrease/maintain body weight Diabetes:: Patient communicates acknowledgment Metabolic Syndrome Metabolic Syndrome Response Code:: Patient communicates acknowledgment Sedentary Recommendations Include:: Aerobic exercise 5-7 times/week for 20-30 minutes continuously, Benefits of regular exercise, Discussed home walking program, Monitored Outpatient Cardiac Rehab Sedentary Response Code:: Patient communicates acknowledgment Stress Patient Stress Risk Factors Are:: Patient denies stress as a risk factor Stress Response Code:: Patient communicates acknowledgment
--- NOTE | 2017-09-22 14:26 | PCM.PN.HOSP ---
Patient Problems: Active and Suspected Problems Angina pectoris (Acute) Stable angina (Acute) Subjective: No further chest pain. Vitals/I&O's: Vital Signs Temp Pulse Resp BP Pulse Ox 36.8 C 66 8 L 107/70 96 09/22/17 12:45 09/22/17 13:00 09/22/17 13:00 09/22/17 13:00 09/22/17 13:00 Oxygen Flow Rate (L/min) 1.5 Oxygen Delivery Method Room Air Weight: 96.162 kg Body Mass Index (BMI) 36.5 Intake and Output for Last 24 Hours 09/20/17 09/21/17 09/22/17 23:59 23:59 23:59 Intake Total 88.4 / 88.4 487 / 487 Output Total 0 / 0 Balance 88.4 / 88.4 487 / 487 General: Alert, Cooperative, No apparent distress HEENT: Atraumatic Neck: No Nodes, Thyroid Normal Size and Texture Lungs: Clear to auscultation, Normal air movement, No rhonchi, No wheeze Cardiovascular: Regular rate, Regular Rhythm, Normal S1, Normal S2, No murmurs Abdomen: Bowel Sounds Present, Soft, Non Tender, Non-Distended, No Hepato-splenomegaly Extremities: No edema, No Calf Tenderness Psych/Mental Status: Normal Affect, Appropriate Laboratory Results 09/21/17 22:59: POC Glucose 215 H 09/21/17 23:05: Troponin I < 0.02 09/22/17 02:15: Sodium 143, Potassium 3.5, Chloride 110 H, Carbon Dioxide 24.0, Anion Gap 9, BUN 26 H, Creatinine 1.10, Estim Creat Clear Calc 51.58, Est GFR (MDRD) Af Amer 85, Est GFR (MDRD) Non-Af 70, BUN/Creatinine Ratio 23.6 H, Glucose 122 H, Calcium 9.2 09/22/17 02:15: Troponin I 0.02 09/22/17 06:25: Troponin I < 0.02 09/22/17 06:25: WBC 7.0, RBC 4.65, Hgb 13.5, Hct 41.2, MCV 88.6, MCH 29.0, MCHC 32.8, RDW 14.3, RDW Differential 46.1 H, Plt Count 148 L, MPV 11.5, Immature Gran % (Auto) 0.300, Neut % (Auto) 63.1, Lymph % (Auto) 23.6, [place] % (Auto) 10.0, Eos % (Auto) 2.4, Baso % (Auto) 0.6, Absolute Neuts (auto) 4.4, Absolute Lymphs (auto) 1.65, Total Counted Not Reportable 09/22/17 06:25: PT 14.8, INR 1.2, APTT 36.1 09/22/17 06:57: POC Glucose 140 H 09/22/17 08:15: Urine Color Yellow, Urine Clarity Clear, Urine pH 5.0, Ur Specific [place] 1.020, Urine Protein Negative, Urine Glucose (UA) Normal, Urine Ketones Negative, Urine Occult Blood Negative, Urine Nitrite Negative, Urine Bilirubin Negative, Urine Urobilinogen Normal, Ur Leukocyte Esterase Negative 09/22/17 10:46: Activated Clotting Time 230 H 09/22/17 11:35: Total Creatine Kinase 78 09/22/17 11:35: WBC 7.2, RBC 4.39 L, Hgb 12.9 L, Hct 38.9 L, MCV 88.6, MCH 29.4, MCHC 33.2, RDW 14.1, RDW Differential 45.1 H, Plt Count 145 L, MPV 11.5 09/22/17 12:10: Activated Clotting Time 153 H Current Medications Aspirin (Aspirin, Baby) 162 mg PO DAILY@0800 [facility] Last Admin: 09/22/17 09:21 Dose: 162 mg Atorvastatin Calcium (Lipitor) 40 mg PO QHS [facility] Last Admin: 09/21/17 23:03 Dose: 40 mg Atropine Sulfate () 0.5 mg IV UD PRN PRN Reason: HR <50 bpm Dextrose (D50w Syringe) 0 gm IV X1 PRN; Protocol PRN Reason: Hypoglycemia Diazepam (Valium) 5 mg PO Q6H PRN PRN PRN Reason: BACK SPASMS/ANXIETY Diltiazem HCl (Cardizem Cd) 240 mg PO DAILY [facility] Last Admin: 09/22/17 09:21 Dose: 240 mg Glimepiride (Amaryl) 4 mg PO BIDCM [facility] Glucagon () 1 mg IM .X1 PRN PRN Reason: Hypoglycemia Hydrochlorothiazide (Hydrochlorothiazide) 12.5 mg PO DAILY [facility] Sodium Chloride () 1,000 mls @ 15 mls/hr IV .Q48H [facility] PRN Reason: KVO Last Admin: 09/22/17 09:27 Dose: Not Given Sodium Chloride () 1,000 mls @ 150 mls/hr IV .Q6H40M [facility] Stop: 09/22/17 17:29 Last Admin: 09/22/17 11:00 Dose: 150 mls/hr Insulin Aspart (Novolog Flexpen (Bkc)) 0 units SC ACHS [facility] PRN Reason: Protocol Last Admin: 09/22/17 13:19 Dose: 1 unit Levothyroxine Sodium (Synthroid) 25 mcg PO DAILY@0600 [facility] Last Admin: 09/22/17 06:02 Dose: 25 mcg Losartan Potassium (Cozaar) 100 mg PO DAILY [facility] Last Admin: 09/22/17 09:22 Dose: 100 mg Magnesium Hydroxide (Milk Of Magnesia) 30 ml PO DAILY PRN PRN Reason: Constipation Metoclopramide HCl (Reglan) 5 mg IV Q6 PRN PRN Reason: NAUSEA/VOMITING Nitroglycerin (Nitrostat) 0.4 mg SUBLINGUAL Q5M PRN PRN Reason: CARDIAC/CHEST PAIN Sodium Chloride () 5 - 30 ml IV UD PRN PRN Reason: SALINE FLUSH Sodium Chloride () 500 ml IV BOLUS PRN PRN Reason: VASO-VAGAL PROTOCOL Ticagrelor (Brilinta) 90 mg PO BID [facility] Last Admin: 09/22/17 09:21 Dose: 90 mg Medical Necessity - Tobacco Use Smoking Status: Former smoker Assessment/Plan Active and Suspected Problems Angina pectoris (Acute) Stable angina (Acute) 1. Stable angina s/p YUMIKO to RCA Brillinta, ASA, HIS, Dilt, Losartan 2. DM2 fair control 3. DVT proph: LMWH. Code Visit Inpatient E&M: 92370 Subs Hosp L2
--- NOTE | 2017-09-22 14:29 | PN_ITS ---
Patient Problems: Active and Suspected Problems Angina pectoris (Acute) Stable angina (Acute) Subjective: No further chest pain. Vitals/I&O's: Vital Signs Temp Pulse Resp BP Pulse Ox 36.8 C 66 8 L 107/70 96 09/22/17 12:45 09/22/17 13:00 09/22/17 13:00 09/22/17 13:00 09/22/17 13:00 Oxygen Flow Rate (L/min) 1.5 Oxygen Delivery Method Room Air Weight: 96.162 kg Body Mass Index (BMI) 36.5 Intake and Output for Last 24 Hours 09/20/17 09/21/17 09/22/17 23:59 23:59 23:59 Intake Total 88.4 / 88.4 487 / 487 Output Total 0 / 0 Balance 88.4 / 88.4 487 / 487 General: Alert, Cooperative, No apparent distress HEENT: Atraumatic Neck: No Nodes, Thyroid Normal Size and Texture Lungs: Clear to auscultation, Normal air movement, No rhonchi, No wheeze Cardiovascular: Regular rate, Regular Rhythm, Normal S1, Normal S2, No murmurs Abdomen: Bowel Sounds Present, Soft, Non Tender, Non-Distended, No Hepato- splenomegaly Extremities: No edema, No Calf Tenderness Psych/Mental Status: Normal Affect, Appropriate Laboratory Results 09/21/17 22:59: POC Glucose 215 H 09/21/17 23:05: Troponin I < 0.02 09/22/17 02:15: Sodium 143, Potassium 3.5, Chloride 110 H, Carbon Dioxide 24.0, Anion Gap 9, BUN 26 H, Creatinine 1.10, Estim Creat Clear Calc 51.58, Est GFR ( MDRD) Af Amer 85, Est GFR (MDRD) Non-Af 70, BUN/Creatinine Ratio 23.6 H, Glucose 122 H, Calcium 9.2 09/22/17 02:15: Troponin I 0.02 09/22/17 06:25: Troponin I < 0.02 09/22/17 06:25: WBC 7.0, RBC 4.65, Hgb 13.5, Hct 41.2, MCV 88.6, MCH 29.0, MCHC 32.8, RDW 14.3, RDW Differential 46.1 H, Plt Count 148 L, MPV 11.5, Immature Gran % (Auto) 0.300, Neut % (Auto) 63.1, Lymph % (Auto) 23.6, [place] % (Auto) 10.0 , Eos % (Auto) 2.4, Baso % (Auto) 0.6, Absolute Neuts (auto) 4.4, Absolute Lymphs (auto) 1.65, Total Counted Not Reportable 09/22/17 06:25: PT 14.8, INR 1.2, APTT 36.1 09/22/17 06:57: POC Glucose 140 H 09/22/17 08:15: Urine Color Yellow, Urine Clarity Clear, Urine pH 5.0, Ur Specific [place] 1.020, Urine Protein Negative, Urine Glucose (UA) Normal, Urine Ketones Negative, Urine Occult Blood Negative, Urine Nitrite Negative, Urine Bilirubin Negative, Urine Urobilinogen Normal, Ur Leukocyte Esterase Negative 09/22/17 10:46: Activated Clotting Time 230 H 09/22/17 11:35: Total Creatine Kinase 78 09/22/17 11:35: WBC 7.2, RBC 4.39 L, Hgb 12.9 L, Hct 38.9 L, MCV 88.6, MCH 29.4 , MCHC 33.2, RDW 14.1, RDW Differential 45.1 H, Plt Count 145 L, MPV 11.5 09/22/17 12:10: Activated Clotting Time 153 H Current Medications Aspirin (Aspirin, Baby) 162 mg PO DAILY@0800 [facility] Last Admin: 09/22/17 09:21 Dose: 162 mg Atorvastatin Calcium (Lipitor) 40 mg PO QHS [facility] Last Admin: 09/21/17 23:03 Dose: 40 mg Atropine Sulfate () 0.5 mg IV UD PRN PRN Reason: HR <50 bpm Dextrose (D50w Syringe) 0 gm IV X1 PRN; Protocol PRN Reason: Hypoglycemia Diazepam (Valium) 5 mg PO Q6H PRN PRN PRN Reason: BACK SPASMS/ANXIETY Diltiazem HCl (Cardizem Cd) 240 mg PO DAILY [facility] Last Admin: 09/22/17 09:21 Dose: 240 mg Glimepiride (Amaryl) 4 mg PO BIDCM [facility] Glucagon () 1 mg IM .X1 PRN PRN Reason: Hypoglycemia Hydrochlorothiazide (Hydrochlorothiazide) 12.5 mg PO DAILY [facility] Sodium Chloride () 1,000 mls @ 15 mls/hr IV .Q48H [facility] PRN Reason: KVO Last Admin: 09/22/17 09:27 Dose: Not Given Sodium Chloride () 1,000 mls @ 150 mls/hr IV .Q6H40M [facility] Stop: 09/22/17 17:29 Last Admin: 09/22/17 11:00 Dose: 150 mls/hr Insulin Aspart (Novolog Flexpen (Bkc)) 0 units SC ACHS [facility] PRN Reason: Protocol Last Admin: 09/22/17 13:19 Dose: 1 unit Levothyroxine Sodium (Synthroid) 25 mcg PO DAILY@0600 [facility] Last Admin: 09/22/17 06:02 Dose: 25 mcg Losartan Potassium (Cozaar) 100 mg PO DAILY [facility] Last Admin: 09/22/17 09:22 Dose: 100 mg Magnesium Hydroxide (Milk Of Magnesia) 30 ml PO DAILY PRN PRN Reason: Constipation Metoclopramide HCl (Reglan) 5 mg IV Q6 PRN PRN Reason: NAUSEA/VOMITING Nitroglycerin (Nitrostat) 0.4 mg SUBLINGUAL Q5M PRN PRN Reason: CARDIAC/CHEST PAIN Sodium Chloride () 5 - 30 ml IV UD PRN PRN Reason: SALINE FLUSH Sodium Chloride () 500 ml IV BOLUS PRN PRN Reason: VASO-VAGAL PROTOCOL Ticagrelor (Brilinta) 90 mg PO BID [facility] Last Admin: 09/22/17 09:21 Dose: 90 mg Medical Necessity - Tobacco Use Smoking Status: Former smoker Assessment/Plan Active and Suspected Problems Angina pectoris (Acute) Stable angina (Acute) 1. Stable angina * s/p YUMIKO to RCA * Brillinta, ASA, HIS, Dilt, Losartan 2. DM2 * fair control 3. DVT proph: LMWH. Code Visit Inpatient E&M: 02048 Subs Hosp L2
[2017-09-22 16:15] LABS: Bedside Glucose 162 mg/dL (70-110)
[2017-09-22] MEDS: HYDROCHLOROTHIAZIDE 12.5 MG CAPSULE PO (16:18)
[2017-09-22] MEDS: Glimepiride 4 MG Tablet PO (16:18)
[2017-09-22 16:26] LABS: Bedside Glucose 140 mg/dL (70-110)
[2017-09-22 17:21] LABS: Hematocrit 41.8 % (40-54); Mean Corp Hgb Conc 33.5 g/gl (32-36); Mean Corpuscular Hgb 29.4 pg (27.0-32.0); Mean Corpuscular Volume 87.6 fL (80-94); Mean Platelet Vol. 11.1 fl (6.2-12.0); Platelet Count 165 K/mm3 (150-450); RBC Distribution Width CV 14.2 % (11.6-14.6); RBC Distribution Width SD 45.6 fl (35.1-43.9); Red Blood Count 4.77 M/mm3 (4.6-6.2); White Blood Count 8.4 K/mm3 (4.4-11.0)
[2017-09-22 17:22] LABS: Scan Indicated on CBC? Y/N NO
[2017-09-22 17:38] LABS: CPK Total, Creatine Kinase 72 U/L (39-308)
--- NOTE | 2017-09-22 18:19 | CL.D_ITS ---
Patient Name: EMMA CERDA Study Date: 09/22/2017 Performing: Tod Stallworth MD Ht: 64 inches 163 cm : 1945 Wt: 214.1 lbs 97 kg Age: 71 Gender: male BSA: 2.02 PROCEDURE(S) PERFORMED [id number]/LV [id number] W OR WO PTCA, SINGLE CORONARY ARTERY CLINICAL PROFILE AND INDICATIONS Indications: ACS > 24 hrs, Other, Worsening Angina Heart Failure: None Stress/Imaging Stress/Image Study Performed: No Stress/Image Study Performed: No Angina Classification Anginal Classification w/in 2 Weeks: CCS III CAD Presentations: Unstable angina. Unstable angina. Comorbidities/Risk Factors: Hypertension Dyslipidemia CONCLUSIONS Elevated Left Ventricular End Diastolic Pressure Normal LV size, wall motion,and systolic function LVEF: by LV gram 65 % [place] Multivessel CAD (Predominantly RCA) RECOMMENDATIONS Risk factor modification Medical therapy Referred for immediate PCI DESCRIPTION OF PROCEDURE The patient arrived to the procedure lab. The risks and benefits of the procedure as well as a full d escription of our services here and current unavailability of surgical backup were fully explained to the patient and/or their significant other prior to the catheterization. The Timeout was completed, verifying the correct patient and procedure. The patient's procedural site was prepped and draped in the usual fashion. Local anesthetic was given subcutaneously to right groin region with Lidocaine 2%. Using a modified Seldinger technique, arterial access was obtained via the right femoral artery, a 4 Fr sheath was inserted Left Coronary Artery selective angiography was performed in multiple views us ing a 4 Fr. JL5 catheter. Right Coronary Artery selective angiography was then performed in multiple views using a 4 Fr. 3DRC catheter. Left Ventriculography was performed in JEAN projection using a 4 Fr . Pigtail catheter.The arterial sheath was sutured in place and capped CORONARY ANGIOGRAPHY DOMINANCE: Right Dominant LEFT HEART ASSESSMENT Left Ventricular Ejection Fraction: by LV Gram 65 % Normal LV wall motion Elevated Left Ventricular End Diastolic Pressure LVEDP: 35 mmHg LEFT MAIN: Angiographically normal LEFT ANTERIOR DECENDING ARTERY: Mild luminal irregularities CIRCUMFLEX ARTERY: Mild luminal irregularities RIGHT CORONARY ARTERY: MID RCA: 99 % Stenosis DISTAL RCA: Mild luminal irregularities COLLATERAL FLOW: Collateral flow from Left to Right VALVE FINDINGS: Normal Aortic Valve function Normal Mitral Valve function AORTIC ROOT: Angiographically normal COMPLICATIONS No Complications PROCEDURE MEDICATIONS Versed 1 mg IV Oxygen: 2 L/min via nasal cannula Heparin 6000 unit(s) IV 09/22/2017 10:29:22 Nitro 200 mcg IC 09/22/2017 10:30:56 Nitro 200 mcg IC 09/22/2017 10:30:56 Nitro 200 mcg IC 09/22/2017 10:35:43 SUMMARY OF HEMODYNAMIC DATA Time AIR REST ECG 09:55:13 AO 142/81 (107) SA 10:12:51 LV 156/10, 39 10:19:15 LV 154/8, 35 10:19:22 LV 154/12, 40 10:20:16 LV 153/11, 36 10:20:23 LVp 152/9, 31 10:20:28 AOp 155/81 (112) 10:20:33 Signed By Tod Stallworth MD On 09/22/2017 18:19:22 Tod Stallworth MD
--- NOTE | 2017-09-22 18:55 | PCM.PN.CARD ---
Subjectve: The patient is s/p diagnostic cardiac cath and subsequent RCA PCI. He states he is feeling fine at this time. He denies any ongoing chest discomfort, dyspnea, or palpitations. Objective: Vital Signs Temp Pulse Resp BP Pulse Ox 98.6 F 74 18 117/56 L 94 09/22/17 16:00 09/22/17 18:00 09/22/17 18:00 09/22/17 18:00 09/22/17 18:00 Oxygen Flow Rate (L/min) 1.5 Oxygen Delivery Method Room Air Weight: 212 lb Body Mass Index (BMI) 36.5 Intake and Output for Last 24 Hours 09/20/17 09/21/17 09/22/17 23:59 23:59 23:59 Intake Total 88.4 / 88.4 1610 / 1610 Output Total 925 / 925 Balance 88.4 / 88.4 685 / 685 General: Awake, Alert, Oriented x 3, Cooperative, No Acute Distress Neck: No JVD Lungs: Clear to auscultation Cardiovascular: Regular Rhythm, Normal S1, Normal S2 Vascular: Normal Femoral Pulses Abdomen: Bowel Sounds Present, Soft, Non Tender Extremities: No edema 09/21/17 23:05: Troponin I < 0.02 09/22/17 02:15: Sodium 143, Potassium 3.5, Chloride 110 H, Carbon Dioxide 24.0, Anion Gap 9, BUN 26 H, Creatinine 1.10, Est GFR (MDRD) Af Amer 85, Est GFR (MDRD) Non-Af 70, BUN/Creatinine Ratio 23.6 H, Glucose 122 H, Calcium 9.2 09/22/17 02:15: Troponin I 0.02 09/22/17 06:25: Troponin I < 0.02 09/22/17 06:25: WBC 7.0, RBC 4.65, Hgb 13.5, Hct 41.2, MCV 88.6, MCH 29.0, MCHC 32.8, RDW 14.3, RDW Differential 46.1 H, Plt Count 148 L, MPV 11.5, Immature Gran % (Auto) 0.300, Neut % (Auto) 63.1, Lymph % (Auto) 23.6, [place] % (Auto) 10.0, Eos % (Auto) 2.4, Baso % (Auto) 0.6, Absolute Neuts (auto) 4.4, Total Counted Not Reportable 09/22/17 06:25: PT 14.8, INR 1.2, APTT 36.1 09/22/17 08:15: Urine Color Yellow, Urine Clarity Clear, Urine pH 5.0, Ur Specific [place] 1.020, Urine Protein Negative, Urine Glucose (UA) Normal, Urine Ketones Negative, Urine Occult Blood Negative, Urine Nitrite Negative, Urine Bilirubin Negative, Urine Urobilinogen Normal, Ur Leukocyte Esterase Negative 09/22/17 11:35: Troponin I < 0.02 09/22/17 11:35: WBC 7.2, RBC 4.39 L, Hgb 12.9 L, Hct 38.9 L, MCV 88.6, MCH 29.4, MCHC 33.2, RDW 14.1, RDW Differential 45.1 H, Plt Count 145 L, MPV 11.5 09/22/17 17:00: WBC 8.4, RBC 4.77, Hgb 14.0, Hct 41.8, MCV 87.6, MCH 29.4, MCHC 33.5, RDW 14.2, RDW Differential 45.6 H, Plt Count 165, MPV 11.1 Rhythm: sinus rhythm Cardiac Cath: please see official report PCI: please see official report Medical Necessity - Tobacco Use Smoking Status: Former smoker Assessment/Plan 1. CAD s/p RCA PCI The patient is now s/p cardiac catheterization resulting in the diagnosis of CAD with angiographically significant RCA disease leading to RCA PCI. He will continue medical therapy with aspirin, antiplatelet therapy, nitrates as needed, consideration for beta blockers, continuation of the diuretic / ARB combination, and lipid lowering therapy. He will need future outpatient cardiovascular follow up and cardiac rehab. 2. Hyperlipidemia He is on lipid-lowering therapy. This will be continued and adjusted as needed. 3. Hypertension He is on antihypertensive therapy. His blood pressures can be monitored. His medications can be adjusted as needed. 4. Diabetes mellitus The patient will continue under the care of internal medicine. Comment: The above was discussed with the patient. This note was generated with [employer] software. It may contain incorrect words, spelling, and punctuation that were not noted in checking the note before signing.
--- NOTE | 2017-09-22 19:00 | PN.CARD_ITS ---
Subjectve: The patient is s/p diagnostic cardiac cath and subsequent RCA PCI. He states he is feeling fine at this time. He denies any ongoing chest discomfort, dyspnea, or palpitations. Objective: Vital Signs Temp Pulse Resp BP Pulse Ox 98.6 F 74 18 117/56 L 94 09/22/17 16:00 09/22/17 18:00 09/22/17 18:00 09/22/17 18:00 09/22/17 18:00 Oxygen Flow Rate (L/min) 1.5 Oxygen Delivery Method Room Air Weight: 212 lb Body Mass Index (BMI) 36.5 Intake and Output for Last 24 Hours 09/20/17 09/21/17 09/22/17 23:59 23:59 23:59 Intake Total 88.4 / 88.4 1610 / 1610 Output Total 925 / 925 Balance 88.4 / 88.4 685 / 685 General: Awake, Alert, Oriented x 3, Cooperative, No Acute Distress Neck: No JVD Lungs: Clear to auscultation Cardiovascular: Regular Rhythm, Normal S1, Normal S2 Vascular: Normal Femoral Pulses Abdomen: Bowel Sounds Present, Soft, Non Tender Extremities: No edema 09/21/17 23:05: Troponin I < 0.02 09/22/17 02:15: Sodium 143, Potassium 3.5, Chloride 110 H, Carbon Dioxide 24.0, Anion Gap 9, BUN 26 H, Creatinine 1.10, Est GFR (MDRD) Af Amer 85, Est GFR (MDRD ) Non-Af 70, BUN/Creatinine Ratio 23.6 H, Glucose 122 H, Calcium 9.2 09/22/17 02:15: Troponin I 0.02 09/22/17 06:25: Troponin I < 0.02 09/22/17 06:25: WBC 7.0, RBC 4.65, Hgb 13.5, Hct 41.2, MCV 88.6, MCH 29.0, MCHC 32.8, RDW 14.3, RDW Differential 46.1 H, Plt Count 148 L, MPV 11.5, Immature Gran % (Auto) 0.300, Neut % (Auto) 63.1, Lymph % (Auto) 23.6, [place] % (Auto) 10.0 , Eos % (Auto) 2.4, Baso % (Auto) 0.6, Absolute Neuts (auto) 4.4, Total Counted Not Reportable 09/22/17 06:25: PT 14.8, INR 1.2, APTT 36.1 09/22/17 08:15: Urine Color Yellow, Urine Clarity Clear, Urine pH 5.0, Ur Specific [place] 1.020, Urine Protein Negative, Urine Glucose (UA) Normal, Urine Ketones Negative, Urine Occult Blood Negative, Urine Nitrite Negative, Urine Bilirubin Negative, Urine Urobilinogen Normal, Ur Leukocyte Esterase Negative 09/22/17 11:35: Troponin I < 0.02 09/22/17 11:35: WBC 7.2, RBC 4.39 L, Hgb 12.9 L, Hct 38.9 L, MCV 88.6, MCH 29.4 , MCHC 33.2, RDW 14.1, RDW Differential 45.1 H, Plt Count 145 L, MPV 11.5 09/22/17 17:00: WBC 8.4, RBC 4.77, Hgb 14.0, Hct 41.8, MCV 87.6, MCH 29.4, MCHC 33.5, RDW 14.2, RDW Differential 45.6 H, Plt Count 165, MPV 11.1 Rhythm: sinus rhythm Cardiac Cath: please see official report PCI: please see official report Medical Necessity - Tobacco Use Smoking Status: Former smoker Assessment/Plan 1. CAD s/p RCA PCI The patient is now s/p cardiac catheterization resulting in the diagnosis of CAD with angiographically significant RCA disease leading to RCA PCI. He will continue medical therapy with aspirin, antiplatelet therapy, nitrates as needed, consideration for beta blockers, continuation of the diuretic / ARB combination, and lipid lowering therapy. He will need future outpatient cardiovascular follow up and cardiac rehab. 2. Hyperlipidemia He is on lipid-lowering therapy. This will be continued and adjusted as needed. 3. Hypertension He is on antihypertensive therapy. His blood pressures can be monitored. His medications can be adjusted as needed. 4. Diabetes mellitus The patient will continue under the care of internal medicine. Comment: The above was discussed with the patient. This note was generated with [employer]ation software. It may contain incorrect words, spelling, and punctuation that were not noted in checking the note before signing.
[2017-09-22] MEDS: Atorvastatin Calcium 40 MG Tablet PO (21:06)
[2017-09-22] MEDS: 0.9% NaCl Peripheral Flush Adult/Peds IV (21:06)
[2017-09-22] MEDS: Metoprolol Tartrate 25 MG Tablet PO (21:08)
[2017-09-22 21:25] LABS: Bedside Glucose 180 mg/dL (70-110)
[2017-09-22 22:49] LABS: Hematocrit 41.2 % (40-54); Hemoglobin 13.6 g/dl (13.0-16.5); Mean Corpuscular Hgb 28.9 pg (27.0-32.0); Mean Corpuscular Volume 87.7 fL (80-94); Mean Platelet Vol. 10.9 fl (6.2-12.0); Platelet Count 144 K/mm3 (150-450); White Blood Count 7.5 K/mm3 (4.4-11.0)
[2017-09-22 22:50] LABS: Scan Indicated on CBC? Y/N NO
[2017-09-22 23:08] LABS: CPK Total, Creatine Kinase 74 U/L (39-308)
[2017-09-23] VITALS (15 sets, daily range): BP systolic 120–145; BP diastolic 57–78; PULSE 59–85; RESP 12–20; TEMP 36.4–36.6; O2SAT 93–97
[2017-09-23 03:15] LABS: Bedside Glucose 104 mg/dL (70-110)
[2017-09-23 04:30] LABS: Hematocrit 40.3 % (40-54); Hemoglobin 13.7 g/dl (13.0-16.5); Mean Corpuscular Hgb 29.8 pg (27.0-32.0); Mean Corpuscular Volume 87.6 fL (80-94); Platelet Count 150 K/mm3 (150-450); RBC Distribution Width CV 14.1 % (11.6-14.6); RBC Distribution Width SD 44.6 fl (35.1-43.9); White Blood Count 7.5 K/mm3 (4.4-11.0)
[2017-09-23 04:31] LABS: Scan Indicated on CBC? Y/N NO
[2017-09-23 04:51] LABS: Anion Gap 9 (5-15); BUN 17 mg/dL (7-18); BUN/Creat Ratio 18.2 RATIO (10-20); Calcium,Total 8.6 mg/dL (8.5-10.1); Chloride 109 mmol/L (98-107); Cholesterol 71 mg/dL (200); Creatinine, Serum 0.94 mg/dL (0.70-1.30); EST Glomerular Filtration Rate 84 mL/min (>60); Est Glom Filt Rate - Afr Amer 102 mL/min (>60); Estimated Creatinine Clearance 55.66 ml/min; Glucose 109 mg/dL (74-106); High Density Lipoprotein 28 mg/dL; Potassium 3.7 mmol/L (3.5-5.1); Sodium Level 143 mmol/L (136-145); Triglycerides 163 mg/dL; Very Low Density Lipoprotein 33 mg/dL (5-40)
[2017-09-23] MEDS: Enoxaparin 40 MG/0.4 ML Syringe SC (05:03)
[2017-09-23] MEDS: Levothyroxine 25 MCG TABLET PO (05:03)
--- NOTE | 2017-09-23 05:55 | EKG12_ITS ---
Test Reason : Blood Pressure : / mmHG Vent. Rate : 066 BPM Atrial Rate : 066 BPM P-R Int : 254 ms QRS Dur : 084 ms QT Int : 390 ms P-R-T Axes : 008 -08 028 degrees QTc Int : 408 ms Sinus rhythm with 1st degree A-V block Otherwise normal ECG When compared with ECG of 22-SEP-2017 05:06, MANUAL COMPARISON REQUIRED, DATA IS UNCONFIRMED Confirmed by MELANY SAMSON, WILBER ([id number]), school photograph editor GEGE KAT ([id number]) on 09/27/2017 2:40:15 PM Referred By: Confirmed By:WILBER MOSLEY MD
[2017-09-23 06:46] LABS: Bedside Glucose 158 mg/dL (70-110)
[2017-09-23] MEDS: Glimepiride 4 MG Tablet PO (08:09)
[2017-09-23] MEDS: Aspirin 81 MG TAB.CHEW PO (08:09)
--- NOTE | 2017-09-23 08:58 | CASEMGMT ---
Face to Face with patient for initial transition planning/care coordination assessment. EZE MENA introduced self and role at [facility], pt voices understanding and consents to assessment at this time. Pt is lying in bed in no distress at this time. Pt is A/O x4 at this time and answers all questions appropriately. at bedside and pt would like her to answer all questions at this time. Care providers, pharmacy, and demographics verified. See attached link. Pt/ voice no further concerns/needs at this time. Advised pt/ to ask for CM if any further questions/concerns/needs arise, voices understanding. PLAN: Home w/ [facility] EZE MENA
--- NOTE | 2017-09-23 09:18 | PCM.PN.CARD ---
Subjectve: The patient states he is feeling well. He has been up in his chair and up and ambulating in his room. He denies any recurrent chest discomfort or difficulty breathing. Objective: Vital Signs Temp Pulse Resp BP Pulse Ox 97.6 F L 69 15 145/76 H 93 09/23/17 05:00 09/23/17 08:00 09/23/17 08:00 09/23/17 08:00 09/23/17 08:00 Oxygen Flow Rate (L/min) 1.5 Oxygen Delivery Method Room Air Weight: 212 lb Body Mass Index (BMI) 36.5 Intake and Output for Last 24 Hours 09/21/17 09/22/17 09/23/17 23:59 23:59 23:59 Intake Total 88.4 / 88.4 2267 / 2267 120 / 120 Output Total 925 / 925 Balance 88.4 / 88.4 1342 / 1342 120 / 120 General: Awake, Alert, Oriented x 3, Cooperative, No Acute Distress Neck: No JVD Lungs: Clear to auscultation Cardiovascular: Regular Rhythm, Normal S1, Normal S2 Vascular: Normal Femoral Pulses Abdomen: Bowel Sounds Present, Soft, Non Tender Extremities: - - Right inguinal area: Positive ecchymoses: Negative hematoma: Pulses 2+/4+ with no obvious bruits Neurological: No Focal Motor or Sensory Deficit 09/22/17 08:15: Urine Color Yellow, Urine Clarity Clear, Urine pH 5.0, Ur Specific [place] 1.020, Urine Protein Negative, Urine Glucose (UA) Normal, Urine Ketones Negative, Urine Occult Blood Negative, Urine Nitrite Negative, Urine Bilirubin Negative, Urine Urobilinogen Normal, Ur Leukocyte Esterase Negative 09/22/17 11:35: Troponin I < 0.02 09/22/17 11:35: WBC 7.2, RBC 4.39 L, Hgb 12.9 L, Hct 38.9 L, MCV 88.6, MCH 29.4, MCHC 33.2, RDW 14.1, RDW Differential 45.1 H, Plt Count 145 L, MPV 11.5 09/22/17 17:00: WBC 8.4, RBC 4.77, Hgb 14.0, Hct 41.8, MCV 87.6, MCH 29.4, MCHC 33.5, RDW 14.2, RDW Differential 45.6 H, Plt Count 165, MPV 11.1 09/22/17 22:35: WBC 7.5, RBC 4.70, Hgb 13.6, Hct 41.2, MCV 87.7, MCH 28.9, MCHC 33.0, RDW 14.0, RDW Differential 45.0 H, Plt Count 144 L, MPV 10.9 09/23/17 04:00: WBC 7.5, RBC 4.60, Hgb 13.7, Hct 40.3, MCV 87.6, MCH 29.8, MCHC 34.0, RDW 14.1, RDW Differential 44.6 H, Plt Count 150, MPV 11.0 09/23/17 04:00: Sodium 143, Potassium 3.7, Chloride 109 H, Carbon Dioxide 25.0, Anion Gap 9, BUN 17, Creatinine 0.94, Est GFR (MDRD) Af Amer 102, Est GFR (MDRD) Non-Af 84, BUN/Creatinine Ratio 18.2, Glucose 109 H, Calcium 8.6, Triglycerides 163, Cholesterol 71, LDL Cholesterol 10, VLDL Cholesterol 33, HDL Cholesterol 28 L Rhythm: Sinus rhythm EKG: Sinus rhythm; inferior NC of indeterminate age cannot be excluded Medical Necessity - Tobacco Use Smoking Status: Former smoker Assessment/Plan 1. CAD s/p RCA PCI The patient is now s/p cardiac catheterization resulting in the diagnosis of CAD with angiographically significant RCA disease leading to RCA PCI. He will continue medical therapy with aspirin, antiplatelet therapy, nitrates as needed, consideration for beta blockers, continuation of the diuretic / ARB combination, and lipid lowering therapy. He asked to have a transthoracic echocardiogram to evaluate his left ventricular wall motion and overall systolic function. This can be used to assist in his future follow-up as well. He will need future outpatient cardiovascular follow up and cardiac rehab. 2. Hyperlipidemia He is on lipid-lowering therapy. This will be continued and adjusted as needed. 3. Hypertension He is on antihypertensive therapy. His blood pressures can be monitored. His medications can be adjusted as needed. 4. Diabetes mellitus The patient will continue under the care of internal medicine. Comment: The above was discussed with the patient. This note was generated with [employer] software. It may contain incorrect words, spelling, and punctuation that were not noted in checking the note before signing.
--- NOTE | 2017-09-23 09:23 | PN.CARD_ITS ---
Subjectve: The patient states he is feeling well. He has been up in his chair and up and ambulating in his room. He denies any recurrent chest discomfort or difficulty breathing. Objective: Vital Signs Temp Pulse Resp BP Pulse Ox 97.6 F L 69 15 145/76 H 93 09/23/17 05:00 09/23/17 08:00 09/23/17 08:00 09/23/17 08:00 09/23/17 08:00 Oxygen Flow Rate (L/min) 1.5 Oxygen Delivery Method Room Air Weight: 212 lb Body Mass Index (BMI) 36.5 Intake and Output for Last 24 Hours 09/21/17 09/22/17 09/23/17 23:59 23:59 23:59 Intake Total 88.4 / 88.4 2267 / 2267 120 / 120 Output Total 925 / 925 Balance 88.4 / 88.4 1342 / 1342 120 / 120 General: Awake, Alert, Oriented x 3, Cooperative, No Acute Distress Neck: No JVD Lungs: Clear to auscultation Cardiovascular: Regular Rhythm, Normal S1, Normal S2 Vascular: Normal Femoral Pulses Abdomen: Bowel Sounds Present, Soft, Non Tender Extremities: - - Right inguinal area: Positive ecchymoses: Negative hematoma: Pulses 2+/4+ with no obvious bruits Neurological: No Focal Motor or Sensory Deficit 09/22/17 08:15: Urine Color Yellow, Urine Clarity Clear, Urine pH 5.0, Ur Specific [place] 1.020, Urine Protein Negative, Urine Glucose (UA) Normal, Urine Ketones Negative, Urine Occult Blood Negative, Urine Nitrite Negative, Urine Bilirubin Negative, Urine Urobilinogen Normal, Ur Leukocyte Esterase Negative 09/22/17 11:35: Troponin I < 0.02 09/22/17 11:35: WBC 7.2, RBC 4.39 L, Hgb 12.9 L, Hct 38.9 L, MCV 88.6, MCH 29.4 , MCHC 33.2, RDW 14.1, RDW Differential 45.1 H, Plt Count 145 L, MPV 11.5 09/22/17 17:00: WBC 8.4, RBC 4.77, Hgb 14.0, Hct 41.8, MCV 87.6, MCH 29.4, MCHC 33.5, RDW 14.2, RDW Differential 45.6 H, Plt Count 165, MPV 11.1 09/22/17 22:35: WBC 7.5, RBC 4.70, Hgb 13.6, Hct 41.2, MCV 87.7, MCH 28.9, MCHC 33.0, RDW 14.0, RDW Differential 45.0 H, Plt Count 144 L, MPV 10.9 09/23/17 04:00: WBC 7.5, RBC 4.60, Hgb 13.7, Hct 40.3, MCV 87.6, MCH 29.8, MCHC 34.0, RDW 14.1, RDW Differential 44.6 H, Plt Count 150, MPV 11.0 09/23/17 04:00: Sodium 143, Potassium 3.7, Chloride 109 H, Carbon Dioxide 25.0, Anion Gap 9, BUN 17, Creatinine 0.94, Est GFR (MDRD) Af Amer 102, Est GFR (MDRD ) Non-Af 84, BUN/Creatinine Ratio 18.2, Glucose 109 H, Calcium 8.6, Triglycerides 163, Cholesterol 71, LDL Cholesterol 10, VLDL Cholesterol 33, HDL Cholesterol 28 L Rhythm: Sinus rhythm EKG: Sinus rhythm; inferior IA of indeterminate age cannot be excluded Medical Necessity - Tobacco Use Smoking Status: Former smoker Assessment/Plan 1. CAD s/p RCA PCI The patient is now s/p cardiac catheterization resulting in the diagnosis of CAD with angiographically significant RCA disease leading to RCA PCI. He will continue medical therapy with aspirin, antiplatelet therapy, nitrates as needed, consideration for beta blockers, continuation of the diuretic / ARB combination, and lipid lowering therapy. He asked to have a transthoracic echocardiogram to evaluate his left ventricular wall motion and overall systolic function. This can be used to assist in his future follow-up as well. He will need future outpatient cardiovascular follow up and cardiac rehab. 2. Hyperlipidemia He is on lipid-lowering therapy. This will be continued and adjusted as needed. 3. Hypertension He is on antihypertensive therapy. His blood pressures can be monitored. His medications can be adjusted as needed. 4. Diabetes mellitus The patient will continue under the care of internal medicine. Comment: The above was discussed with the patient. This note was generated with [employer] software. It may contain incorrect words, spelling, and punctuation that were not noted in checking the note before signing.
--- NOTE | 2017-09-23 10:23 | PN_ITS ---
Patient Problems: Active and Suspected Problems Angina pectoris (Acute) Stable angina (Acute) Subjective: No further chest pain. Vitals/I&O's: Vital Signs Temp Pulse Resp BP Pulse Ox 36.4 C L 85 15 131/57 H 94 09/23/17 05:00 09/23/17 09:00 09/23/17 09:00 09/23/17 09:00 09/23/17 09:00 Oxygen Flow Rate (L/min) 1.5 Oxygen Delivery Method Room Air Weight: 96.162 kg Body Mass Index (BMI) 36.5 Intake and Output for Last 24 Hours 09/21/17 09/22/17 09/23/17 23:59 23:59 23:59 Intake Total 88.4 / 88.4 2267 / 2267 120 / 120 Output Total 925 / 925 Balance 88.4 / 88.4 1342 / 1342 120 / 120 General: Alert, Cooperative, No apparent distress HEENT: Atraumatic, Normocephalic Neck: No Nodes, Thyroid Normal Size and Texture Lungs: Clear to auscultation, Normal air movement, No rhonchi, No wheeze Cardiovascular: Regular rate, Regular Rhythm, Normal S1, Normal S2, No murmurs Abdomen: Bowel Sounds Present, Soft, Non Tender, Non-Distended Extremities: No edema, Peripheral Pulses Normal Laboratory Results 09/22/17 10:46: Activated Clotting Time 230 H 09/22/17 11:35: Troponin I < 0.02 09/22/17 11:35: Total Creatine Kinase 78 09/22/17 11:35: WBC 7.2, RBC 4.39 L, Hgb 12.9 L, Hct 38.9 L, MCV 88.6, MCH 29.4 , MCHC 33.2, RDW 14.1, RDW Differential 45.1 H, Plt Count 145 L, MPV 11.5 09/22/17 12:10: Activated Clotting Time 153 H 09/22/17 13:11: POC Glucose 162 H 09/22/17 16:14: POC Glucose 140 H 09/22/17 17:00: Total Creatine Kinase 72 09/22/17 17:00: WBC 8.4, RBC 4.77, Hgb 14.0, Hct 41.8, MCV 87.6, MCH 29.4, MCHC 33.5, RDW 14.2, RDW Differential 45.6 H, Plt Count 165, MPV 11.1 09/22/17 21:05: POC Glucose 180 H 09/22/17 22:35: Total Creatine Kinase 74 09/22/17 22:35: WBC 7.5, RBC 4.70, Hgb 13.6, Hct 41.2, MCV 87.7, MCH 28.9, MCHC 33.0, RDW 14.0, RDW Differential 45.0 H, Plt Count 144 L, MPV 10.9 09/23/17 03:08: POC Glucose 104 09/23/17 04:00: WBC 7.5, RBC 4.60, Hgb 13.7, Hct 40.3, MCV 87.6, MCH 29.8, MCHC 34.0, RDW 14.1, RDW Differential 44.6 H, Plt Count 150, MPV 11.0 09/23/17 04:00: Sodium 143, Potassium 3.7, Chloride 109 H, Carbon Dioxide 25.0, Anion Gap 9, BUN 17, Creatinine 0.94, Estim Creat Clear Calc 55.66, Est GFR ( MDRD) Af Amer 102, Est GFR (MDRD) Non-Af 84, BUN/Creatinine Ratio 18.2, Glucose 109 H, Calcium 8.6, Triglycerides 163, Cholesterol 71, LDL Cholesterol 10, VLDL Cholesterol 33, HDL Cholesterol 28 L 09/23/17 06:39: POC Glucose 158 H Current Medications Aspirin (Aspirin, Baby) 81 mg PO DAILY@0800 [facility] Last Admin: 09/23/17 08:09 Dose: 81 mg Atorvastatin Calcium (Lipitor) 40 mg PO QHS [facility] Last Admin: 09/22/17 21:06 Dose: 40 mg Atropine Sulfate () 0.5 mg IV UD PRN PRN Reason: HR <50 bpm Dextrose (D50w Syringe) 0 gm IV X1 PRN; Protocol PRN Reason: Hypoglycemia Diazepam (Valium) 5 mg PO Q6H PRN PRN PRN Reason: BACK SPASMS/ANXIETY Enoxaparin Sodium (Lovenox) 40 mg SC DAILY@0600 [facility] Last Admin: 09/23/17 05:03 Dose: 40 mg Glimepiride (Amaryl) 4 mg PO BIDCM [facility] Last Admin: 09/23/17 08:09 Dose: 4 mg Glucagon () 1 mg IM .X1 PRN PRN Reason: Hypoglycemia Hydrochlorothiazide (Hydrochlorothiazide) 12.5 mg PO DAILY [facility] Last Admin: 09/22/17 16:18 Dose: 12.5 mg Sodium Chloride () 1,000 mls @ 15 mls/hr IV .Q48H MIRIAM PRN Reason: KVO Last Admin: 09/22/17 09:27 Dose: Not Given Insulin Aspart (Novolog Flexpen (Bkc)) 0 units SC ACHS [facility] PRN Reason: Protocol Last Admin: 09/23/17 08:11 Dose: Not Given Levothyroxine Sodium (Synthroid) 25 mcg PO DAILY@0600 [facility] Last Admin: 09/23/17 05:03 Dose: 25 mcg Losartan Potassium (Cozaar) 100 mg PO DAILY [facility] Last Admin: 09/22/17 09:22 Dose: 100 mg Magnesium Hydroxide (Milk Of Magnesia) 30 ml PO DAILY PRN PRN Reason: Constipation Metoclopramide HCl (Reglan) 5 mg IV Q6 PRN PRN Reason: NAUSEA/VOMITING Metoprolol Tartrate (Lopressor (Beta Pardeep)) 25 mg PO BID [facility] Last Admin: 09/22/17 21:08 Dose: 25 mg Nitroglycerin (Nitrostat) 0.4 mg SUBLINGUAL Q5M PRN PRN Reason: CARDIAC/CHEST PAIN Sodium Chloride () 5 - 30 ml IV UD PRN PRN Reason: SALINE FLUSH Last Admin: 09/22/17 21:06 Dose: 10 ml Sodium Chloride () 500 ml IV BOLUS PRN PRN Reason: VASO-VAGAL PROTOCOL Ticagrelor (Brilinta) 90 mg PO BID [facility] Last Admin: 09/22/17 21:07 Dose: 90 mg Medical Necessity - Tobacco Use Smoking Status: Former smoker Assessment/Plan Active and Suspected Problems Angina pectoris (Acute) Stable angina (Acute) 1. Stable angina * s/p YUMIKO to RCA * Brillinta, ASA, HIS, metoprolol, Losartan * follow up with cardiology as outpt. 2. DM2 * fair control 3. DVT proph: LMWH. DC home.
--- NOTE | 2017-09-23 10:28 | DCINST_ITS ---
- Discharge Diagnoses Current Active Problems: Current Active and Chronic Problems Angina pectoris (Acute) History of kidney stones (Chronic) Type 2 diabetes mellitus (Chronic) Hypothyroidism (Chronic) Hyperlipidemia (Chronic) Hypertension (Chronic) Stable angina (Acute) You will use the following diet at home:: Calorie/Carbohydrate Controlled ( specify 1200, 1400, etc) - 1800, Cardiac Your food should be the consistency of: Regular Your liquids should be the consistency of: Regular/Thin Discharge Activity: - - No exercising or chores until seen by cardiology. Call your doctor if you observe: Fever of 101 or Higher, Shortness of breath, Chest pain Allergies/Adverse Reactions: Allergies morphine Allergy (Verified 09/21/17 18:47) Other tetracycline Allergy (Verified 09/21/17 18:47) Nausea/Vom/Diarrhea Medications to take at Discharge Aspirin [Aspirin, Baby] 162 mg PO DAILY@0800 07/28/15 Atorvastatin Calcium [Lipitor] 40 mg PO QHS 07/28/15 Glimepiride [Amaryl] 4 mg PO BIDCM 07/28/15 Losartan/Hydrochlorothiazide [Hyzaar 100-12.5 Tablet] 1 tab PO DAILY 07/28/15 Multivitamin [Daily Multiple Vitamin] 1 each PO DAILY 07/28/15 Levothyroxine [Synthroid] 25 mcg PO DAILY 09/21/17 Metformin(XR) [Glucophage Xr] 1,000 mg PO BID #0 09/23/17 Metoprolol Tartrate [Lopressor (beta juanito)] 25 mg PO BID #60 tab 09/23/17 Nitroglycerin [Nitrostat] 0.4 mg SUBLINGUAL Q5M PRN #20 tab 09/23/17 Ticagrelor [Brilinta] 90 mg PO BID #60 tab 09/23/17 The following prescriptions were given: Nitroglycerin [Nitrostat] 0.4 mg SUBLINGUAL Q5M PRN #20 tab PRN Reason: Cardiac/Chest Pain Metoprolol Tartrate [Lopressor (beta juanito)] 25 mg PO BID #60 tab Ticagrelor [Brilinta] 90 mg PO BID #60 tab Primary Care Physician: Max Nunez Chi, MD [Primary Care Provider] - Within 2 Weeks Please Follow Up With: Tod Stallworth MD When: 09/30 Proposed Discharge Date: 09/23/17
--- NOTE | 2017-09-23 10:28 | PCM.DC.SUM ---
Discharge Date and Diagnosis - Problem List Patient Problems: Active and Suspected Problems Angina pectoris (Acute) Stable angina (Acute) Date of Admission: 09/21/17 Date of Discharge: 09/23/17 - Primary Discharge Diagnosis Active and Suspected Problems Angina pectoris (Acute) Stable angina (Acute) - Secondary Discharge Diagnosis Chronic Problems S/P coronary artery stent placement (Chronic) Stent to RCA 09/22/2017 CAD (coronary artery disease) (Chronic) Stent to RCA 09/22/2017 History of kidney stones (Chronic) Type 2 diabetes mellitus (Chronic) Hypothyroidism (Chronic) Hyperlipidemia (Chronic) Hypertension (Chronic) Hospital Course and Treatment Imaging Results: 09/23/17 09:17 Echo Complete [ECHO] Routine Clinical Impression(s) from Imaging Studies Chest X-Ray 09/21/17 16:12 IMPRESSION: No acute cardiopulmonary pathology Electronically Signed: Rich Valadez MD at 19:47 EDT , Service support , Basim Operations: None Procedures: Cardiac catheterization Summary of Care Provided: The patient is a 71 year old M presents with chest pain with exertion. Cardiac workup was unremarkable patient did undergo a left heart catheterization on the second. Patient had drug-eluting stent placed to the RCA. Patient was started on Brilinta as well as aspirin. Patient was continued on his high intensity statin with atorvastatin 40 mg. Patient's hospitalization was uncomplicated. Patient was seen in consultation by Dr. Dr. Stallworth as well, Dr. Mccracken did a heart catheterization. Echocardiogram has been ordered but were not for the delay the patient's disposition. Patient has follow-up appointment with Dr. Stallworth in 1 week's time. Patient's activity will further addressed at that time in regards to potential releasing him to more active pursuits. Agent is a diabetic on metformin. Given the contrast that he received, the metformin will need to be held until the seventh. [] Discharge Diet: Low fat/ Low Cholesterol, 1800 Calorie Control Diet Discharge Activity: - - No exercising or chores until seen by cardiology. Call your doctor if you observe: Fever of 101 or Higher, Shortness of breath, Chest pain Home Medications: Medications to take at Discharge Aspirin [Aspirin, Baby] 162 mg PO DAILY@0800 07/28/15 Atorvastatin Calcium [Lipitor] 40 mg PO QHS 07/28/15 Glimepiride [Amaryl] 4 mg PO BIDCM 07/28/15 Losartan/Hydrochlorothiazide [Hyzaar 100-12.5 Tablet] 1 tab PO DAILY 07/28/15 Multivitamin [Daily Multiple Vitamin] 1 each PO DAILY 07/28/15 Levothyroxine [Synthroid] 25 mcg PO DAILY 09/21/17 Metformin(XR) [Glucophage Xr] 1,000 mg PO BID #0 09/23/17 Metoprolol Tartrate [Lopressor (beta juanito)] 25 mg PO BID #60 tab 09/23/17 Nitroglycerin [Nitrostat] 0.4 mg SUBLINGUAL Q5M PRN #20 tab 09/23/17 Ticagrelor [Brilinta] 90 mg PO BID #60 tab 09/23/17 Following Prescrptions Were Given to Patient: Nitroglycerin [Nitrostat] 0.4 mg SUBLINGUAL Q5M PRN #20 tab PRN Reason: Cardiac/Chest Pain Metoprolol Tartrate [Lopressor (beta juanito)] 25 mg PO BID #60 tab Ticagrelor [Brilinta] 90 mg PO BID #60 tab Primary Care Physician: Max Nunez Chi, MD [Primary Care Provider] - Within 2 Weeks Please Follow Up With: Tod Stallworth MD When: 09/30 Disposition: Home Minutes spent on discharge:: 28 Patient Condition:: Good Medical Necessity - Tobacco Use Smoking Status: Former smoker Meaningful Use Info Meaningful Use Diagnoses (Choose all that apply): None applicable Code Visit Inpatient E&M: 78687 Disch Hosp
[2017-09-23] MEDS: Metoprolol Tartrate 25 MG Tablet PO (10:35)
[2017-09-23] MEDS: Losartan Potassium 100 MG Tablet PO (10:36)
[2017-09-23] MEDS: TICAGRELOR 90 MG TABLET PO (10:36)
[2017-09-23] MEDS: HYDROCHLOROTHIAZIDE 12.5 MG CAPSULE PO (10:36)
== END 2017-09-23 11:25 | disposition home or self-care (01) | DRG 247 ==
LOC: ED 20:30 → PCU 21:28 → ICU 09-22 11:04
PROVIDERS: Internal Medicine Cardiovascular Disease; Admitting Provider Hospitalist; Emergency Provider Emergency Medicine; Family Provider Family Medicine Geriatric Medicine; PCP Family Medicine Geriatric Medicine
DX: I25.118 Atherosclerotic heart disease of native coronary artery with other forms of angina pectoris (principal); I12.9 Hypertensive chronic kidney disease with stage 1 through stage 4 chronic kidney disease, or unspecified chronic kidney disease; E11.22 Type 2 diabetes mellitus with diabetic chronic kidney disease; N18.9 Chronic kidney disease, unspecified; E78.5 Hyperlipidemia, unspecified; E03.9 Hypothyroidism, unspecified; Z79.84 Long term (current) use of oral hypoglycemic drugs; Z79.02 Long term (current) use of antithrombotics/antiplatelets; Z79.82 Long term (current) use of aspirin; Z79.899 Other long term (current) drug therapy; Z87.891 Personal history of nicotine dependence; Z87.442 Personal history of urinary calculi; Z90.49 Acquired absence of other specified parts of digestive tract
CPT/HCPCS: 36415; 71045; 80048; 80061; 81002; 82550; 82962; 84484; 85025; 85027; 85347; 85610; 85730; 92928; 93005; 93458; 99152; 99153; 99283; J7030; Q9967; A4216; C1725; C1769; C1874; C1887; C1894; C9600

== ENCOUNTER → 2017-10-07 14:51 | Outpatient (CLI) | payer MEDICARE, OTHER, SELFPAY ==
[2017-09-22 14:17] VITALS: BMI 37.5
--- NOTE | 2017-10-07 14:53 | ECHOD_ITS ---
Reason For Study: CAD/ASHD Procedure This was a 2D Doppler, Color Flow transthoracic echocardiogram. The exam was of poor technical quality due to body habitus. The study was technically difficult. Exam performed in department. Left Ventricle Normal LV size. Left ventricular systolic function is hyperdynamic. The estimated ejection fraction is 75 %. No regional wall motion abnormalities noted. Right Ventricle Normal RV size. Normal systolic function. Atria Normal left atrium. Normal right atrium. No doppler evidence for ASD. Mitral Valve There is no mitral annular calcification. Normal mitral valve. Trivial mitral valve insufficiency. Tricuspid Valve Normal tricuspid valve. Trivial tricuspid valve insufficiency. Right ventricular systolic pressure estimated to be 31 mmHg. Aortic Valve Trisinus/trileaflet aortic valve. Mild focal aortic valve thickening. Pulmonic Valve Normal pulmonic valve. Trivial pulmonic valve insufficiency. Great Vessels Normal sized aortic root. Pericardium/Pleural No pericardial effusion. MMode/2D Measurements & Calculations LVIDd: 3.7 cm IVSd: 1.3 cm LVOT diam: 2.0 cm LVIDs: 2.4 cm LVPWd: 1.2 cm LVOT area: 3.0 cm2 FS: 35.3 % Ao root diam: 3.1 cm LAV(MOD-bp): 38.3 ml LA A4 area: 16.5 cm2 LA dimension: 3.6 cm LAV(MOD-bp) Indexed: 19.2 ml/m2 LAV(MOD-sp2): 35.4 ml LAV(MOD-sp4): 40.3 ml Doppler Measurements & Calculations MV E max hu: 118.3 cm/sec Lat Peak E' Hu: 7.3 cm/sec Med Peak E' Hu: 4.1 cm/sec MV A max hu: 50.2 cm/sec E/E' lat: 16.2 E/E' med: 28.9 MV E/A: 2.4 Ao V2 max: 199.9 cm/sec LV V1 max: 150.7 cm/sec SV(LVOT): 60.6 ml Ao max P.0 mmHg LV V1 max P.1 mmHg Ao V2 mean: 119.7 cm/sec LV V1 mean P.2 mmHg Ao mean P.7 mmHg LV V1 mean: 95.9 cm/sec Ao V2 VTI: 24.3 cm LV V1 VTI: 20.2 cm ROBERT(I,D): 2.5 cm2 ROBERT(V,D): 2.3 cm2 PA V2 max: 112.3 cm/sec TR max hu: 262.8 cm/sec TR max P.6 mmHg Interpretation Summary The study was technically difficult. Left ventricular systolic function is hyperdynamic. The estimated ejection fraction is 75 %. Trivial mitral valve insufficiency. Trivial tricuspid valve insufficiency. Mild focal aortic valve thickening. Trivial pulmonic valve insufficiency. Right ventricular systolic pressure estimated to be 31 mmHg. Transmitral diastolic flow velocities suggest diastolic dysfunction (pseudonormal pattern). Ordering Physician: Tod Stallworth Referring Physician: Max Nunez Chi Performed By: Helen Maravilla, DESHAWNCS, RVT
== END ==
PROVIDERS: Family Provider Family Medicine Geriatric Medicine; PCP Family Medicine Geriatric Medicine; Visit Provider Internal Medicine Cardiovascular Disease
DX: I25.10 Atherosclerotic heart disease of native coronary artery without angina pectoris (principal)
CPT/HCPCS: 93306

== ENCOUNTER → 2017-11-23 10:06 | Outpatient (CLI) | payer MEDICARE, OTHER, SELFPAY ==
[2017-09-22 14:17] VITALS: BMI 37.5
[2017-11-23 15:55] LABS: Absolute Lymphocyte Count 1.01 X10^3/ul (0.83-4.51); Absolute Neutrophil Count 4.6 X10^3/uL (2.0-7.7); Basophil# 0.04 X10^3/uL; Basophil% 0.6 % (0-1); Eosinophil# 0.26 X10^3/uL; Hematocrit 45.4 % (40-54); Hemoglobin 14.5 g/dl (13.0-16.5); Lymphocyte # 1.01 X10^3/ul (4.0); Lymphocyte % 15.7 % (19-41); Mean Corp Hgb Conc 31.9 g/gl (32-36); Mean Corpuscular Hgb 28.8 pg (27.0-32.0); Mean Corpuscular Volume 90.3 fL (80-94); Mean Platelet Vol. 11.1 fl (6.2-12.0); Monocyte# 0.52 X10^3/uL; Monocyte% 8.1 % (0-10); Neutrophil # 4.61 X10^3/uL (2.7-7.7); Neutrophil % 71.4 % (47-70); Platelet Count 166 K/mm3 (150-450); RBC Distribution Width CV 14.3 % (11.6-14.6); RBC Distribution Width SD 46.4 fl (35.1-43.9); Red Blood Count 5.03 M/mm3 (4.6-6.2); White Blood Count 6.5 K/mm3 (4.4-11.0)
[2017-11-23 16:06] LABS: POSITIVE COUNT NO; POSITIVE DIFFERENTIAL NO; POSITIVE MORPHOLOGY NO
[2017-11-23 16:10] LABS: AST(SGOT) 24 U/L (15-37); Alanine Aminotransfer ALT/SGPT 44 U/L (16-61); Albumin, Serum 3.8 g/dL (3.2-5.0); Alkaline Phosphatase 65 U/L (45-117); Anion Gap 8 (5-15); BUN 23 mg/dL (7-18); BUN/Creat Ratio 18.7 RATIO (10-20); Calcium,Total 9.2 mg/dL (8.5-10.1); Chloride 105 mmol/L (98-107); Creatinine, Serum 1.23 mg/dL (0.70-1.30); EST Glomerular Filtration Rate 62 mL/min (>60); Est Glom Filt Rate - Afr Amer 74 mL/min (>60); Glucose 172 mg/dL (74-106); Potassium 4.2 mmol/L (3.5-5.1); Protein, Total 7.8 g/dL (6.4-8.2); Sodium Level 142 mmol/L (136-145); Thyroid Stim Hormone (TSH) 1.89 uIU/mL (0.358-3.74)
[2017-11-24 09:38] LABS: Vitamin D,25 Hydroxy 26.1 ng/mL (29.95-100.01)
== END ==
PROVIDERS: Family Provider Family Medicine Geriatric Medicine; PCP Family Medicine Geriatric Medicine; Visit Provider Family Medicine Geriatric Medicine
DX: E11.9 Type 2 diabetes mellitus without complications (principal); I10 Essential (primary) hypertension; E55.9 Vitamin D deficiency, unspecified
CPT/HCPCS: 36415; 80053; 82306; 84443; 85025

== ENCOUNTER 2017-12-23 11:55 | Emergency (ER) | payer MEDICARE, OTHER, SELFPAY ==
[2017-09-22 14:17] VITALS: BMI 37.5
[2017-12-23 11:56] VITALS: BP 149/73; PULSE 85; RESP 16; TEMP 36.7; O2SAT 95; BMI 36.8
--- NOTE | 2017-12-23 12:39 | EKG12_ITS ---
Test Reason : FLANK PAIN Blood Pressure : / mmHG Vent. Rate : 077 BPM Atrial Rate : 077 BPM P-R Int : 230 ms QRS Dur : 088 ms QT Int : 362 ms P-R-T Axes : 034 007 050 degrees QTc Int : 409 ms Sinus rhythm with 1st degree A-V block Inferior infarct , age undetermined, cannot be excluded Abnormal ECG Confirmed by HEATHER SAMSON, JULIO ([id number]), book or script editor GEGE KAT ([id number]) on 12/27/2017 2:02:23 PM Referred By: HERBERTH Confirmed By:JULIO ROMERO MD
--- NOTE | 2017-12-23 12:39 | CT_ITS ---
STUDY: CT ABDOMEN AND PELVIS WITHOUT CONTRAST REASON FOR EXAM: Male, 72 years old. Left flank pain. History of kidney stones. RADIATION DOSAGE (If Supplied By Facility): CTDIvol = ( 21.20 ) mGy, DLP = ( 1075.38 ) mGycm TECHNIQUE: Transaxial images were obtained from the dome of the diaphragm to the symphysis pubis without oral contrast, and without intravenous contrast. Sagittal and coronal images were reconstructed. Individualized dose optimization techniques were used for this CT. COMPARISON: Comparison is made with prior study dated July 28, 2015. FINDINGS: Stable mild increased markings at the lung bases suggestive of scarring. Coronary artery calcification. Normal liver. The patient is status post cholecystectomy. Normal spleen. Normal pancreas. Normal bilateral adrenal glands. Punctate nonobstructive calculus in the midportion of the right kidney. Left perinephric stranding. Engorgement of the left kidney. Mild left hydronephrosis and the hydroureter due to 2 adjacent proximal ureteral calculi. The larger measures 4.3 mm. There is evidence of a 7.2 mm calculus in the lower pole of the left kidney. Punctate calculus in the upper pole of the left kidney. There is a small hiatal hernia. Normal small intestine. Normal colon. The appendix is visualized and appears normal. There is diffuse atherosclerotic calcification of the abdominal aorta, without a demonstrated aneurysm. Normal inferior vena cava. Normal retroperitoneum. Normal urinary bladder. There are prostatic calcifications. There is a left-sided inguinal hernia containing adipose tissue. There are diffuse degenerative changes of the visualized lumbar spine. CT/Abdomen/Pelvis without Cont IMPRESSION: Mild left hydronephrosis and hydroureter due to 2 adjacent proximal left ureteral calculi. Left perinephric stranding. Nonobstructive calculus in the lower pole of the left kidney. Electronically Signed: Bayron Snow MD at 13:30 EDT Tel [phone], Service support ,
[2017-12-23] MEDS: Ondansetron 4 MG/2 ML Vial IV (12:47)
[2017-12-23] MEDS: 0.9% Normal Saline 1,000 ML 125 ML IV (12:48)
[2017-12-23] MEDS: HYDROmorphone 1 MG/ML Syringe IV (12:48)
[2017-12-23 13:11] LABS: Basophil# 0.02 X10^3/uL; Basophil% 0.2 % (0-1); Eosinophil# 0.17 X10^3/uL; Eosinophils% 1.8 % (0-5); Hematocrit 44.7 % (40-54); Hemoglobin 15.4 g/dl (13.0-16.5); Lymphocyte % 12.9 % (19-41); Mean Corp Hgb Conc 34.5 g/gl (32-36); Mean Corpuscular Hgb 29.8 pg (27.0-32.0); Mean Corpuscular Volume 86.6 fL (80-94); Mean Platelet Vol. 11.3 fl (6.2-12.0); Monocyte# 0.88 X10^3/uL; Monocyte% 9.5 % (0-10); Neutrophil % 75.5 % (47-70); POSITIVE COUNT NO; POSITIVE DIFFERENTIAL NO; POSITIVE MORPHOLOGY NO; Platelet Count 178 K/mm3 (150-450); RBC Distribution Width SD 44.2 fl (35.1-43.9); Red Blood Count 5.16 M/mm3 (4.6-6.2); White Blood Count 9.3 K/mm3 (4.4-11.0)
[2017-12-23 13:24] LABS: Anion Gap 6 (5-15); BUN 28 mg/dL (7-18); Calcium,Total 9.9 mg/dL (8.5-10.1); Chloride 101 mmol/L (98-107); Creatinine, Serum 1.87 mg/dL (0.70-1.30); EST Glomerular Filtration Rate 38 mL/min (>60); Est Glom Filt Rate - Afr Amer 46 mL/min (>60); Estimated Creatinine Clearance 28.74 ml/min; Glucose 135 mg/dL (74-106); Potassium 4.2 mmol/L (3.5-5.1); Sodium Level 137 mmol/L (136-145)
[2017-12-23 14:11] VITALS: BP 140/92; PULSE 74; RESP 15; O2SAT 99
--- NOTE | 2017-12-23 14:20 | ED.VISSUMM ---
- ER Visit Summary Date of Service: 12/23/17 Chief Complaint: [Left flank pain] History of Present Illness: The patient is a 72 M [presents with left flank pain that started 3 or 4 days ago. Patient having continuous discomfort. Patient states that the pain worse with certain movements. Patient's had nausea but no vomiting. Patient states that he feels bloated and gassy. Patient denies urinary symptoms. Last bowel movement was yesterday and normal. Patient denies any blood in his stool or black tarry stools. Patient denies any trauma to his back. Patient denies any pain radiating down his legs.] Physical Examination: [HEENT-PERRLA, EOMI. Cranial nerves II through XII grossly intact. TMs clear. Mucous membranes moist. No adenopathy. Cardiovascular-regular rate and rhythm without murmur or ectopy Lungs-clear to auscultation, chest wall stable without crepitus or subcu emphysema Abdomen-normoactive bowel sounds, soft area and patient has mild tenderness over left upper quadrant lower quadrant. No rebound, rigidity, or perineal signs. Extremities-intact ?4, normal range of motion, normal pulses, atraumatic] Test Results: [EKG obtained arrival shows sinus rhythm with first-degree AV block and old inferior infarct. CBC with differential showed a white count of 9.3, hemoglobin 15, hematocrit 45, platelets 178. Chemistries unremarkable. BUN was 28 creatinine 1.87. Troponin was less than 0.015. CT flank showed 2 2 mm calculi adjacent to one another in the proximal ureter causing mild hydronephrosis and hydroureter.] Urinalysis obtained showed 10-25 RBCs without signs of infection. Emergency Department Course and Treatment: [Patient was medicated with Dilaudid and Zofran and had good pain relief with that.] Treatment Plan: [Patient continues to be comfortable in the emergency department and I will attempt discuss case with urology on-call Dr. Helena Bender. Patient will be discharged with urine strainers and [place] for pain. Patient advised to return if worsening pain, fever, vomiting, or condition should worsen in any way Disposition: [Discharged home in stable condition] Impression: [Left ureteral stones with colic] This note was generated with [employer] software. It may contain incorrect words, spelling, and punctuation that were not noted in review of the chart prior to signing ED Disposition - Plan for ED Patient: Chief Complaint: Flank Pain Referrals: Max Nunez Chi, MD [Primary Care Provider] -
[2017-12-23 14:23] LABS: Bacteria 0 SEEN /hpf (None Seen); Mucous, Urine 0 SEEN /hpf (<or=2+); Squamous Epithelial Cells - UA 0 SEEN /hpf (0-5)
[2017-12-23 14:29] LABS: Color, Urine Yellow (Yellow); Glucose, Dipstick Normal (Normal); Ketone-Dipstick Negative (Negative); Leukocyte Esterase-Dipstick 25 /ul (Negative); Nitrite-Dipstick Negative (Negative); Occult Blood-Urine 250 /ul (Negative); Protein-Dipstick 30 mg/dl (Negative); Specific Gravity, Urine 1.015 (1.002-1.030); Urine Bilirubin Dipstick Negative (Negative); Urine Clarity Clear (Clear); Urine Urobilinogen Normal (Normal)
[2017-12-23 14:36] LABS: Red Blood Cells-Urine 10-25 SEEN /hpf (0-5); White Blood Cells 0-5 SEEN /hpf (0-5)
--- NOTE | 2017-12-23 14:48 | DCINST.ED_ITS ---
ED Disposition - Plan for ED Patient: Chief Complaint: Flank Pain Instructions: ED Stone Renal W Colic Prescriptions: Hydrocodone/Acetaminophen [[place] 5-325 Tablet] 1 - 2 ea PO 4X/DAY PRN PRN 5 Days #20 tab PRN Reason: Pain Referrals: Max Nunez Chi, MD [Primary Care Provider] - Helena Bender MD [STAFF PHYSICIAN] - 3-5 Days
--- NOTE | 2017-12-23 15:10 | ED.DEP ---
ED Disposition - Plan for ED Patient: Chief Complaint: Flank Pain Instructions: ED Stone Renal W Colic Prescriptions: Hydrocodone/Acetaminophen [[place] 5-325 Tablet] 1 - 2 ea PO 4X/DAY PRN PRN 5 Days #20 tab PRN Reason: Pain Referrals: Max Nunez Chi, MD [Primary Care Provider] - Julito Moran MD [STAFF PHYSICIAN] - 3-5 Days
[2017-12-23 15:42] VITALS: BP 120/69; PULSE 70; RESP 16; O2SAT 93
--- NOTE | 2017-12-23 15:43 | ED.RN ---
REVIEWED D/C INSTRUCTIONS, FOLLOW UP CARE, PRESCRIPTION, AND S/S THAT WOULD WARRANT A RETURN TO THE ED WITH PT. PT VERBALIZED AN UNDERSTANDING AND DENIES FURTHER QUESTIONS FOR THIS RN. PT SKIN P/W/D, RESP EVEN AND UNLABORED, PT A&O X 3, NO DISTRESS NOTED. PT AMBULATED OUT OF ED, GAIT STEADY.
== END 2017-12-23 15:44 | disposition home or self-care (01) ==
PROVIDERS: Emergency Provider Emergency Medicine; Family Provider Family Medicine Geriatric Medicine; PCP Family Medicine Geriatric Medicine
DX: N13.2 Hydronephrosis with renal and ureteral calculous obstruction (principal); I25.10 Atherosclerotic heart disease of native coronary artery without angina pectoris; I44.0 Atrioventricular block, first degree; I10 Essential (primary) hypertension; E11.9 Type 2 diabetes mellitus without complications; I25.2 Old myocardial infarction; Z79.84 Long term (current) use of oral hypoglycemic drugs; Z79.02 Long term (current) use of antithrombotics/antiplatelets; Z79.82 Long term (current) use of aspirin; Z79.899 Other long term (current) drug therapy; Z87.442 Personal history of urinary calculi
CPT/HCPCS: 74176; 80048; 81001; 84484; 85025; 93005; 96361; 96374; 96375; 99284; J7030; J2405

== ENCOUNTER → 2017-12-27 10:17 | Outpatient (CLI) | payer MEDICARE, OTHER, SELFPAY ==
[2017-09-22 14:17] VITALS: BMI 37.5
--- NOTE | 2017-12-27 10:22 | RAD_ITS ---
STUDY: X-RAY - ABDOMEN/PELVIS REASON FOR EXAM: Male, 72 years old. Renal stones. TECHNIQUE: Single AP view of the abdomen / pelvis. COMPARISON: CT scan 12/23/2017. FINDINGS: Stable appearance of approximately 3 mid left ureteral stones lined up at about the level of L4. Two small stones as much as 4 mm are seen in the lower pole of the left kidney. No definite stones on the right. Moderate fecal retention. Degenerative changes throughout the bones. RAD/Abdomen Single View IMPRESSION: 3 mid left ureteral stones are seen similar to the previous CT scan. Largest of these measures 8 mm. Electronically Signed: Vic Gill MD at 22:00 EDT , Service support ,
== END ==
PROVIDERS: Family Provider Family Medicine Geriatric Medicine; PCP Family Medicine Geriatric Medicine; Visit Provider Urology
DX: N20.0 Calculus of kidney (principal)
CPT/HCPCS: 74018

== ENCOUNTER → 2017-12-31 08:18 | Outpatient (CLI) | payer MEDICARE, OTHER, SELFPAY ==
[2017-09-22 14:17] VITALS: BMI 37.5
--- NOTE | 2017-12-31 08:20 | CT_ITS ---
STUDY: CT ABDOMEN AND PELVIS WITHOUT CONTRAST REASON FOR EXAM: Male, 72 years old. Left kidney stone. RADIATION DOSAGE (If Supplied By Facility): CTDIvol = ( 18.32 ) mGy, DLP = ( 906.36 ) mGycm TECHNIQUE: Transaxial images were obtained from the dome of the diaphragm to the symphysis pubis without oral contrast, and without intravenous contrast. Sagittal and coronal images were reconstructed. Individualized dose optimization techniques were used for this CT. COMPARISON: 12/23/2017. FINDINGS: The visualized lung bases are unremarkable. The visualized portions of the heart are within normal limits. Normal liver. There is non-visualization of the gallbladder, which may be secondary to either contraction or a prior cholecystectomy. Normal spleen. Normal pancreas. Normal bilateral adrenal glands. No acute abnormality the right kidney. 2 small nonobstructing stones are seen in the interpolar region. The left ureteral stones previously described, have minimally migrated more caudal down the left ureter. They have moved only a few millimeters down the ureter and continued to cause mild hydronephrosis. There is still about 3 stones adjacent to each other at about the level of the L4-L5 disc level. Also unchanged are several other upper mid and lower pole currently nonobstructing stones of the left kidney. Evaluation of the GI tract is limited by absence of oral contrast. Cannot exclude stomach wall thickening. No dilated loops of bowel or evidence for obstruction. Cannot exclude segmental thickening of the santo of the small or large bowel. Cannot exclude enteritis or colitis. Moderate diffuse fecal retention. Diverticulosis without definite diverticulitis. Appendix within normal limits. There is diffuse atherosclerotic calcification of the abdominal aorta, without a demonstrated aneurysm. Normal inferior vena cava. Normal retroperitoneum. Normal urinary bladder. There is enlargement of the prostate gland. There is a left-sided inguinal hernia containing adipose tissue. There are diffuse degenerative changes of the visualized lumbar spine. CT/Abdomen/Pelvis without Cont IMPRESSION: The collection of left ureteral stones seen on 12/23/2017 are only minimally further down the left ureter than on the previous exam, and there is still left hydronephrosis. Electronically Signed: Vic Gill MD at 21:02 EDT , Service support ,
== END ==
PROVIDERS: Family Provider Family Medicine Geriatric Medicine; PCP Family Medicine Geriatric Medicine; Visit Provider Urology
DX: N20.2 Calculus of kidney with calculus of ureter (principal)
CPT/HCPCS: 74176

== ENCOUNTER 2018-01-05 12:44 | Day surgery (SDC) | payer MEDICARE, OTHER, SELFPAY ==
[2017-09-22 14:17] VITALS: BMI 37.5
[2018-01-05] VITALS (7 sets, daily range): BP systolic 119–131; BP diastolic 60–87; PULSE 63–65; RESP 14–16; TEMP 35.7–36.3; O2SAT 91–100; BMI 37.0
[2018-01-05 13:36] LABS: Bedside Glucose 154 mg/dL (70-110)
[2018-01-05] MEDS: Cefazolin 2 GM in 0.9% Normal Saline 100 ML IV (14:06)
--- NOTE | 2018-01-05 14:58 | PCM.DC.URO ---
Discharge Diet: Light diet - advance as tolerated Discharge Activity: Return to Normal Activity Return to work on:: 01/07/18September shower in (days): 1 Call your doctor if your incision/area has: Continuous Slow Oozing, Sudden Increased Bleeding, Increased Pain/ Swelling, Increased Redness, Foul Smelling Discharge, Swelling at the incision site Call your doctor if you observe: Fever of 101 or Higher Instructions: Treating Kidney Stones: Ureteroscopic Stone Removal Additional Instructions: use OTC tylenol, advil and ibuprofen for pain use OTC AZO for buring with urination. Allergies/Adverse Reactions: Allergies morphine Allergy (Verified 01/05/18 13:13) Other tetracycline Allergy (Verified 01/05/18 13:13) Nausea/Vom/Diarrhea Medications to take at Discharge Atorvastatin Calcium [Lipitor] 40 mg PO QHS 07/28/15 Glimepiride [Amaryl] 4 mg PO BIDCM 07/28/15 Losartan/Hydrochlorothiazide [Hyzaar 100-12.5 Tablet] 1 tab PO DAILY 07/28/15 Multivitamin [Daily Multiple Vitamin] 1 ea PO DAILY 07/28/15 Levothyroxine [Synthroid] 25 mcg PO DAILY 09/21/17 Metformin(XR) [Glucophage Xr] 1,000 mg PO BID #0 09/23/17 Nitroglycerin [Nitrostat] 0.4 mg SUBLINGUAL Q5M PRN #20 tab 09/23/17 aspirin 81 mg chewable tablet 81 mg PO DAILY@0800 tab 09/29/17 clopidogrel 75 mg tablet 75 mg PO QDAY #90 tab 09/29/17 Hydrocodone/Acetaminophen [[place] 5-325 Tablet] 1 - 2 ea PO 4X/DAY PRN PRN 5 Days #20 tab 12/23/17 Metoprolol Tartrate 50 mg PO BID 12/29/17 Primary Care Physician: Max Nunez Chi, MD [Primary Care Provider] - Test Results: Test results from this visit will be discussed in further detail at your follow-up appointment, if applicable. Please Follow Up With: Julito Moran MD When: in 2 weeks, please call to make an appointment.
--- NOTE | 2018-01-05 14:59 | PCM.OPRPT ---
Report of Operation Date of Procedure: 01/05/18 Pre-Operative Diagnosis: Left ureteral calculi multiple causing obstruction and hydronephrosis Post-Operative Diagnosis: The same Surgery/Procedure Performed:: Cystoscopy, left retrograde pyelogram, balloon dilation of the left ureter, left ureteroscopy and laser lithotripsy of stone, and left stent placement Description of Surgical Findings:: 72-year-old male who has multiple stones in the left mid ureter on CAT scan follow-up the stones have not passed on its own at this point I am recommending we do definitive treatment for the simple blocking obstructing stones in the left mid ureter he does have a history of heart atherosclerotic heart disease and had a recent stent and was advised not to stop his Plavix because of recent heart stent so working to proceed with ureteroscopy and laser lithotripsy without stopping Plavix. 72-year-old male was taken back to the operating room after smooth induction of general anesthesia he was placed supine on the table and then in dorsal lithotomy position. The penis and testicles were prepped and draped in usual sterile fashion. I went into the bladder with a 21 Welsh rigid cystourethroscope the entire length the urethra is normal pendulous urethra is normal sphincter is normal prostate was slightly enlarged had a slight median lobe I then identified the left ureteral orifice I used a balloon dilator cannulated the left ureteral orifice and advanced the balloon dilator up the ureter and balloon dilated the distal ureter after completion of balloon dilation with a 12 Welsh balloon dilator and left the wire in place over the wire went in with the ureteroscope once in the ureter and performed a retrograde pyelogram and contrast going up to the kidney could see the stones in the mid ureter I went up to the stones and then I performed laser lithotripsy and stone with a 270 ?m laser fiber most of the energy settings were fairly high 2.0 J and and between 10-6 Hz after he lasering the stone the little tiny pieces that should all pass on her own I worked my way down the ureter ureter was a little bit narrowed and inflamed from the stones being stuck in the ureter for quite some time no perforation or injury of the ureter was noted, worked my way down the ureter left the wire in place over the wire I then placed a stent 6 Welsh by 26 cm stent stent coiled in the kidney bladder good position drain the bladder left the string on the stent for easy extraction plan to see him next week with an x-ray and we will pull the stent out. Type of Anesthesia:: General Drains: stent - Admit VTE Documentation VTE Present on Admission: No VTE Mechan Device Prophylaxis: SCD's
[2018-01-05 15:15] LABS: Bedside Glucose 147 mg/dL (70-110)
[2018-01-05] MEDS: HYDROcodone Bitartrate/Apap 5/325 Tablet PO (16:16)
== END 2018-01-05 18:00 | disposition home or self-care (01) ==
LOC: SDC 12:45 → AC 12:46
PROVIDERS: Family Provider Family Medicine Geriatric Medicine; PCP Family Medicine Geriatric Medicine; Visit Provider Urology
PROC: 0TJ98ZZ Inspection of Ureter, Via Natural or Artificial Opening Endoscopic (ICD-10-PCS; CPT 52352; principal; 2018-01-05 14:25)
DX: N13.2 Hydronephrosis with renal and ureteral calculous obstruction (principal); I25.10 Atherosclerotic heart disease of native coronary artery without angina pectoris; E11.9 Type 2 diabetes mellitus without complications; I10 Essential (primary) hypertension; E78.00 Pure hypercholesterolemia, unspecified; E03.9 Hypothyroidism, unspecified; K21.9 Gastro-esophageal reflux disease without esophagitis; Z79.84 Long term (current) use of oral hypoglycemic drugs; Z79.02 Long term (current) use of antithrombotics/antiplatelets; Z79.82 Long term (current) use of aspirin; Z79.899 Other long term (current) drug therapy; Z87.442 Personal history of urinary calculi; Z87.891 Personal history of nicotine dependence; Z95.5 Presence of coronary angioplasty implant and graft
CPT/HCPCS: 52356; 76000; 82962; J7120; C1769; C2617

== ENCOUNTER → 2018-01-10 14:27 | Outpatient (CLI) | payer MEDICARE, OTHER, SELFPAY ==
[2017-09-22 14:17] VITALS: BMI 37.5
[2018-01-10 14:51] LABS: Mucous, Urine 0 SEEN /hpf (<or=2+)
[2018-01-10 15:59] LABS: Hematocrit 41.1 % (40-54); Hemoglobin 13.6 g/dl (13.0-16.5); Mean Corp Hgb Conc 33.1 g/gl (32-36); Mean Corpuscular Hgb 28.6 pg (27.0-32.0); Mean Corpuscular Volume 86.5 fL (80-94); Mean Platelet Vol. 10.8 fl (6.2-12.0); Platelet Count 155 K/mm3 (150-450); RBC Distribution Width SD 44.3 fl (35.1-43.9); Red Blood Count 4.75 M/mm3 (4.6-6.2); White Blood Count 12.1 K/mm3 (4.4-11.0)
[2018-01-10 16:03] LABS: Scan Indicated on CBC? Y/N NO
[2018-01-10 16:19] LABS: Basophil 0.2 % (0-1); Eosinophil 0.2 % (0-5); Lymphocyte 10.1 % (19-41); Monocyte 8.6 % (0-10); Neutrophil-Segmented 80.8 % (47-70)
[2018-01-10 16:20] LABS: Platelet Estimate ADEQUATE (ADEQ)
[2018-01-10 16:21] LABS: Red Cell Morphology NORM C+C NORMAL (NORM C&C)
[2018-01-10 16:34] LABS: Color, Urine Amber (Yellow); Glucose, Dipstick Normal (Normal); Ketone-Dipstick 5 mg/dl (Negative); Leukocyte Esterase-Dipstick 500 /ul (Negative); Nitrite-Dipstick Positive (Negative); Occult Blood-Urine 250 /ul (Negative); Protein-Dipstick 100 mg/dl (Negative); Specific Gravity, Urine 1.015 (1.002-1.030); Urine Bilirubin Dipstick 1 mg/dL (Negative); Urine Clarity Turbid (Clear); Urine Urobilinogen 1 mg/dl (Normal)
[2018-01-10 16:54] LABS: Amorphous Sediment 2+ URATE; Bacteria 4+ /hpf (None Seen); Red Blood Cells-Urine > 100 SEEN /hpf (0-5); Squamous Epithelial Cells - UA 0-5 SEEN /hpf (0-5); White Blood Cells >100 SEEN /hpf (0-5)
[2018-01-10 18:57] LABS: Total Cells Counted 100 (MANUAL DIFF)
== END ==
PROVIDERS: Family Provider Family Medicine Geriatric Medicine; PCP Family Medicine Geriatric Medicine; Visit Provider Urology
DX: R50.9 Fever, unspecified (principal); N20.0 Calculus of kidney
CPT/HCPCS: 36415; 81001; 85007; 85027; 87086

== ENCOUNTER 2018-01-10 15:30 | Inpatient (IN) | payer MEDICARE, OTHER, SELFPAY ==
[2017-09-22 14:17] VITALS: BMI 37.5
[2018-01-10 15:32] VITALS: BP 114/66; PULSE 82; RESP 18; TEMP 36.6; O2SAT 94; BMI 36.8
--- NOTE | 2018-01-10 15:50 | ED.DCSUM_ITS ---
- ER Visit Summary Date of Service: 01/10/18 Chief Complaint: Fever History of Present Illness: The patient is a 72 M who had a left ureteral stent placed on the with Dr. Moran. Patient has had fever for the past 3 days up to 102. Last dose of Tylenol was approximately hour and a half ago. Patient denies cough or shortness of breath. He does continue to have some left flank pain. He has had hematuria and dysuria that are both improving. Physical Examination: Vital signs are unremarkable. Temperature here is 98.0. Patient sitting upright in bed no acute distress. Head and neck examination unremarkable. Heart is regular rate and rhythm. Lung sounds are clear. Abdomen is soft with mild tenderness in the left upper quadrant. Hypoactive bowel sounds are noted. There is no guarding or rebound. He does have mild left CVA tenderness. Test Results: Patient had a CBC sent prior to his arrival in the ER. That returned with a white count 12.1 and 80% neutrophils. Chemistry studies are currently pending. Urinalysis is positive for nitrites, grade 100 whites, grade 100 reds, and 4+ bacteria. Urine and blood cultures have been sent. Two- view chest x-ray shows degenerative changes with no acute process. CT flank was obtained and read is pending at this time. Emergency Department Course and Treatment: Patient was given IV fluids. At this time he is dosed with IV Rocephin. Dr. Moran presented to the emergency room and will admit the patient overnight. Treatment Plan: [] Disposition: Admit Impression: Urinary tract infection status post ureteral stent placement This note was generated with [employer] dictation software. It may contain incorrect words, spelling, and punctuation that were not noted in review of the chart prior to signing ED Disposition - Plan for ED Patient: Chief Complaint: Fever Referrals: Max Nunez Chi, MD [Primary Care Provider] -
[2018-01-10 16:49] VITALS: BP 116/58; PULSE 69; RESP 18; O2SAT 94
[2018-01-10] MEDS: 0.9% Normal Saline 1,000 ML 150 ML IV (17:04)
[2018-01-10 17:11] LABS: Absolute Lymphocyte Count 0.73 X10^3/ul (0.83-4.51); Absolute Neutrophil Count 9.1 X10^3/uL (2.0-7.7); Basophil# 0.02 X10^3/uL; Basophil% 0.2 % (0-1); Eosinophil# 0.02 X10^3/uL; Eosinophils% 0.2 % (0-5); Hematocrit 38.8 % (40-54); Lymphocyte # 0.73 X10^3/ul (4.0); Lymphocyte % 6.4 % (19-41); Mean Corp Hgb Conc 33.5 g/gl (32-36); Mean Corpuscular Volume 86.4 fL (80-94); Mean Platelet Vol. 11.3 fl (6.2-12.0); Monocyte# 1.57 X10^3/uL; Monocyte% 13.9 % (0-10); Neutrophil # 9.13 X10^3/uL (2.7-7.7); Neutrophil % 79.4 % (47-70); Platelet Count 146 K/mm3 (150-450); RBC Distribution Width CV 14.1 % (11.6-14.6); RBC Distribution Width SD 44.2 fl (35.1-43.9); Red Blood Count 4.49 M/mm3 (4.6-6.2); White Blood Count 11.5 K/mm3 (4.4-11.0)
[2018-01-10 17:12] LABS: Differential Indicated SCAN CRITERIA MET; POSITIVE COUNT NO; POSITIVE DIFFERENTIAL YES; POSITIVE MORPHOLOGY NO
[2018-01-10 17:17] LABS: Anion Gap 9 (5-15); BUN 22 mg/dL (7-18); BUN/Creat Ratio 14.9 RATIO (10-20); Chloride 101 mmol/L (98-107); Creatinine, Serum 1.48 mg/dL (0.70-1.30); EST Glomerular Filtration Rate 50 mL/min (>60); Est Glom Filt Rate - Afr Amer 60 mL/min (>60); Estimated Creatinine Clearance 36.31 ml/min; Glucose 112 mg/dL (74-106); Potassium 3.4 mmol/L (3.5-5.1); Sodium Level 137 mmol/L (136-145)
--- NOTE | 2018-01-10 17:17 | NURSING ---
MED SURG OBS UTI, URETERAL STENT PROANAO
[2018-01-10] MEDS: Ceftriaxone 1 GM/50 ML BAG IV (17:20)
[2018-01-10 17:27] VITALS: BP 114/65; PULSE 65; RESP 18; O2SAT 93
[2018-01-10 17:58] LABS: Platelet Estimate ADEQUATE (ADEQ); Red Cell Morphology NORM C+C NORMAL (NORM C&C)
[2018-01-10 18:09] VITALS: BMI 36.4
[2018-01-10 18:10] VITALS: BMI 36.4
[2018-01-10 18:14] VITALS: BP 118/52; PULSE 69; RESP 16; TEMP 36.6; O2SAT 95
--- NOTE | 2018-01-10 19:16 | PCM.HP.STD ---
Problem List (1) Urinary tract infection associated with catheterization of urinary tract Status: Acute Qualifiers: Indwelling urinary catheter type: unspecified Encounter type: initial encounter Qualified Code(s): T83.511A - Infection and inflammatory reaction due to indwelling urethral catheter, initial encounter; N39.0 - Urinary tract infection, site not specified Comment: stent History of Present Illness Date of Admission: 01/10/18 Chief Complaint: fevers chills The patient is a 72 year old male who had ureteroscopy last week for ureteral calculi had stent placed, discharge home, presented to ER with fevers and chills at home not feeling well. admitted u/a ++ for infection, has stent. Past Medical History Past Medical History (Chronic Problems): Chronic Problems (Last Updated 09/29/17 @ 11:25 by AMALIA Conrad) Atherosclerotic heart disease of [place] coronary artery without angina pectoris (Chronic) Stent to RCA 09/22/2017 S/P coronary artery stent placement (Chronic) Stent to RCA 09/22/2017 CAD (coronary artery disease) (Chronic) Stent to RCA 09/22/2017 History of kidney stones (Chronic) Type 2 diabetes mellitus (Chronic) Hypothyroidism (Chronic) Hyperlipidemia (Chronic) Hypertension (Chronic) Medical History: Medical History (Last Updated 09/29/17 @ 11:25 by AMALIA Conrad) Atherosclerotic heart disease of [place] coronary artery without angina pectoris (Chronic) I25.10 Stent to RCA 09/22/2017 Angina pectoris (Acute) I20.9 Type 2 diabetes mellitus (Chronic) E11.9 Hyperlipidemia (Chronic) E78.5 Hypertension (Chronic) I10 Allergies morphine Allergy (Verified 01/10/18 18:07) burning in chest tetracycline Allergy (Verified 01/10/18 18:07) Nausea/Vom/Diarrhea-almost fainted Home Medications: Ambulatory Orders Medication Instructions Recorded Atorvastatin Calcium [Lipitor] 40 mg PO QHS 07/28/15 Glimepiride [Amaryl] 4 mg PO BIDCM 07/28/15 Losartan/Hydrochlorothiazide 1 tab PO DAILY 07/28/15 [Hyzaar 100-12.5 Tablet] Levothyroxine [Synthroid] 25 mcg PO DAILY 09/21/17 Nitroglycerin [Nitrostat] 0.4 mg SUBLINGUAL Q5M PRN #20 tab 09/23/17 clopidogrel 75 mg tablet 75 mg PO QDAY #90 tab 09/29/17 Metoprolol Tartrate 50 mg PO BID 12/29/17 Ciprofloxacin HCl [Ciprofloxacin 500 mg PO BID 01/10/18 HCl] Cranberry Fruit Concentrate [Azo 500 mg PO DAILY 01/10/18 Cranberry] Metformin HCl 1,000 mg PO BID 01/10/18 Multivit-Min/FA/Lycopen/Lutein 1 tab PO DAILY 01/10/18 [Centrum Silver Men Tablet] Surgical History: Surgical History (Last Reviewed 09/29/17 @ 10:56 by Lauren Black) S/P coronary artery stent placement (Chronic) Z95.5 Stent to RCA 09/22/2017 Surgical History: cholecystectomy Psychiatric History: No pertinent psych hx Lives: With Family Smoking Status: Former smoker Tobacco Use: Non-smoker Alcohol: None Drugs: None - *Family History Maternal History Items: No pertinent history Paternal History Items: No pertinent history Review of Systems Constitutional: Reports: Chills, Fever HEENT: Denies: Head Aches, Sinus Congestion, Sinus Drainage Cardiovascular: Denies: Chest Pain, Palpitations Respiratory: Denies: Cough, Shortness of breath at rest, Sputum production Gastrointestinal: Denies: Abdominal Pain, Nausea, Vomiting Genitourinary: Reports: Hematuria, Urgency. Denies: Dysuria Musculoskeletal: Denies: Joint Pain, Joint Tenderness Skin: Denies: Rash, Wounds Neurological: Denies: Numbness, Tingling, Focal weakness Psychiatric: Denies: Anxiety, Depression, Homicidal Ideations, Suicidal Ideations Hematologic/ Lymphatic: Denies: Easy Bruising, Easy Bleeding VTE Information - Inpt Only VTE Present on Admission: No VTE Mechan Device Prophylaxis: SCD's Patient Problems: Active and Suspected Problems (Last Updated 09/29/17 @ 11:25 by AMALIA Conrad) Urinary tract infection associated with catheterization of urinary tract (Acute) stent - Physical Exam General: Alert, Oriented x3, Cooperative HEENT: Atraumatic, PERRLA, EOMI, Normocephalic Neck: Supple, No JVD, Negative Carotid Bruits Lungs: Clear to auscultation, Normal air movement Cardiovascular: Regular rate, No murmurs Abdomen: Bowel Sounds Present, Soft, Non Tender Extremities: No edema, Capillary Refill Less than 3 Seconds Skin: No rashes, No breakdown Musculoskeletal: No Tenderness to Palpation of Joints or Extremities Neurological: Cranial nerves II-XII grossly intact Psych/Mental Status: Normal Affect, Appropriate Vital Signs Temp Pulse Resp BP Pulse Ox 97.8 F 69 16 118/52 L 95 01/10/18 18:14 01/10/18 18:14 01/10/18 18:14 01/10/18 18:14 01/10/18 18:14 Oxygen Delivery Method Room Air Weight: 93.259 kg Body Mass Index (BMI) 36.4 Assessment/Plan All Active Problems (Last Updated 09/29/17 @ 11:25 by AMALIA Conrad) Urinary tract infection associated with catheterization of urinary tract (Acute) Angina pectoris (Acute) Angina pectoris (Acute) Stable angina (Acute) admit for possible UTI u/a ++, urine cx pending start on rochephin failled cipro outpatient.
[2018-01-10 21:28] VITALS: PULSE 86
[2018-01-10] MEDS: Atorvastatin Calcium 40 MG Tablet PO (21:28)
[2018-01-10] MEDS: Metoprolol Tartrate 50 MG Tablet PO (21:28)
[2018-01-10] MEDS: Glucerna Shake 120 ML LIQUID PO (21:28)
[2018-01-10] MEDS: 0.9% Normal Saline 1,000 ML 100 ML IV (23:55)
[2018-01-11] VITALS (8 sets, daily range): BP systolic 117–144; BP diastolic 50–78; PULSE 77–95; RESP 16–18; TEMP 37.1–37.8; O2SAT 95–99
[2018-01-11] MEDS: Levothyroxine 25 MCG TABLET PO (05:40)
[2018-01-11] MEDS: Losartan Potassium 100 MG Tablet PO (08:37)
[2018-01-11] MEDS: metFORMIN HCl 1,000 MG Tablet 1000 MG PO ×2 (08:37→17:31)
[2018-01-11] MEDS: Multivitamins,Ther W-Minerals Tablet 1 TABLET PO (08:37)
[2018-01-11] MEDS: HYDROCHLOROTHIAZIDE 12.5 MG CAPSULE PO (08:37)
[2018-01-11] MEDS: Metoprolol Tartrate 50 MG Tablet PO ×2 (08:37→21:38)
[2018-01-11] MEDS: Glimepiride 4 MG Tablet PO ×2 (08:37→17:30)
[2018-01-11] MEDS: Glucerna Shake 120 ML LIQUID PO (08:40)
[2018-01-11] MEDS: 0.9% Normal Saline 1,000 ML 100 ML IV ×2 (09:36→19:34)
[2018-01-11] MEDS: Ceftriaxone 1 GM/50 ML BAG IV (09:36)
--- NOTE | 2018-01-11 11:54 | PCM.PROGNOTE ---
Patient Problems: Active and Suspected Problems (Last Updated 09/29/17 @ 11:25 by AMALIA Conrad) Urinary tract infection associated with catheterization of urinary tract (Acute) stent Subjective: Admitted for UTI and fevers still having low-grade fevers on Rocephin - Physical Exam General: Alert, Oriented x3, Cooperative HEENT: Atraumatic, PERRLA, EOMI, Normocephalic Neck: Supple, No JVD, Negative Carotid Bruits Lungs: Clear to auscultation, Normal air movement Cardiovascular: Regular rate, No murmurs Abdomen: Bowel Sounds Present, Soft, Non Tender Extremities: No edema, Capillary Refill Less than 3 Seconds Skin: No rashes, No breakdown Musculoskeletal: No Tenderness to Palpation of Joints or Extremities Neurological: Cranial nerves II-XII grossly intact Psych/Mental Status: Normal Affect, Appropriate Vital Signs Temp Pulse Resp BP Pulse Ox 100.1 F H 77 16 141/78 H 96 01/11/18 08:42 01/11/18 08:42 01/11/18 08:42 01/11/18 08:42 01/11/18 08:42 Oxygen Delivery Method Room Air Weight: 93.259 kg Body Mass Index (BMI) 36.4 Intake and Output for Last 24 Hours 01/09/18 01/10/18 01/11/18 23:59 23:59 23:59 Intake Total 3346 / 3346 Output Total 200 / 200 Balance 3146 / 3146 Medical Necessity - Tobacco Use Smoking Status: Former smoker Tobacco Use: Non-smoker Assessment/Plan All Active Problems (Last Updated 09/29/17 @ 11:25 by AMALIA Conrad) Urinary tract infection associated with catheterization of urinary tract (Acute) Angina pectoris (Acute) Angina pectoris (Acute) Stable angina (Acute) Continue with antibiotics await urine cultures and blood cultures. KVO IV fluids.
[2018-01-11 15:05] LABS: Pathologist Review Reviewed
[2018-01-11] MEDS: Clopidogrel Bisulfate 75 MG Tablet PO (15:18)
--- NOTE | 2018-01-11 17:04 | CASEMGMT ---
RN CM Assessment. See Link. Dc Plan: home No needs identified @ this time.
[2018-01-11] MEDS: Atorvastatin Calcium 40 MG Tablet PO (21:38)
[2018-01-12 02:57] VITALS: BP 122/63; PULSE 73; RESP 18; TEMP 37; O2SAT 94
[2018-01-12] MEDS: Levothyroxine 25 MCG TABLET PO (05:18)
[2018-01-12] MEDS: 0.9% Normal Saline 1,000 ML 100 ML IV (05:19)
--- NOTE | 2018-01-12 07:27 | PCM.PROGNOTE ---
Patient Problems: Active and Suspected Problems (Last Updated 09/29/17 @ 11:25 by AMALIA Conrad) Urinary tract infection associated with catheterization of urinary tract (Acute) stent Subjective: Patient doing better today has less fevers no more chills we are still awaiting urine culture results is passing fragments. - Physical Exam General: Alert, Oriented x3, Cooperative HEENT: Atraumatic, PERRLA, EOMI, Normocephalic Neck: Supple, No JVD, Negative Carotid Bruits Lungs: Clear to auscultation, Normal air movement Cardiovascular: Regular rate, No murmurs Abdomen: Bowel Sounds Present, Soft, Non Tender Extremities: No edema, Capillary Refill Less than 3 Seconds Skin: No rashes, No breakdown Musculoskeletal: No Tenderness to Palpation of Joints or Extremities Neurological: Cranial nerves II-XII grossly intact Psych/Mental Status: Normal Affect, Appropriate Vital Signs Temp Pulse Resp BP Pulse Ox 98.6 F 73 18 122/63 H 94 01/12/18 02:57 01/12/18 02:57 01/12/18 02:57 01/12/18 02:57 01/12/18 02:57 Oxygen Delivery Method Room Air Intake and Output for Last 24 Hours 01/10/18 01/11/18 01/12/18 23:59 23:59 23:59 Intake Total 1143 / 4489 1810 / 1810 Balance 1143 / 4289 181 / 181 Medical Necessity - Tobacco Use Smoking Status: Former smoker Tobacco Use: Non-smoker Assessment/Plan All Active Problems (Last Updated 09/29/17 @ 11:25 by AMALIA Conrad) Urinary tract infection associated with catheterization of urinary tract (Acute) Angina pectoris (Acute) Angina pectoris (Acute) Stable angina (Acute) Admitted for UTI after procedure, await urine cultures, continue with Rocephin.
[2018-01-12 08:46] VITALS: BP 122/61; PULSE 70; RESP 20; TEMP 37; O2SAT 98
[2018-01-12 09:15] VITALS: PULSE 70
[2018-01-12] MEDS: HYDROCHLOROTHIAZIDE 12.5 MG CAPSULE PO (09:15)
[2018-01-12] MEDS: Multivitamins,Ther W-Minerals Tablet 1 TABLET PO (09:15)
[2018-01-12] MEDS: metFORMIN HCl 1,000 MG Tablet 1000 MG PO (09:15)
[2018-01-12] MEDS: Glimepiride 4 MG Tablet PO (09:15)
[2018-01-12] MEDS: Clopidogrel Bisulfate 75 MG Tablet PO (09:15)
[2018-01-12] MEDS: Metoprolol Tartrate 50 MG Tablet PO (09:15)
[2018-01-12] MEDS: Losartan Potassium 100 MG Tablet PO (09:15)
[2018-01-12] MEDS: Ceftriaxone 1 GM/50 ML BAG IV (10:07)
--- NOTE | 2018-01-12 12:27 | PCM.DC.URO ---
Discharge Diet: No Restrictions Discharge Activity: Return to Normal Activity, May not drive while taking narcotic pain medications. Additional Activity Instructions:: f you have a catheter, remove on ___. If you have any problems after catheter is removed, call [phone] and ask for your doctor to be paged. Please be aware that pain medications may cause nausea. You should typically eat light foods as you take your pain medication. Pain medication may cause constipation, if this is a problem for you, please discuss with your doctor. Allergies/Adverse Reactions: Allergies morphine Allergy (Verified 01/10/18 18:07) burning in chest tetracycline Allergy (Verified 01/10/18 18:07) Nausea/Vom/Diarrhea-almost fainted Medications to take at Discharge Atorvastatin Calcium [Lipitor] 40 mg PO QHS 07/28/15 Glimepiride [Amaryl] 4 mg PO BIDCM 07/28/15 Losartan/Hydrochlorothiazide [Hyzaar 100-12.5 Tablet] 1 tab PO DAILY 07/28/15 Levothyroxine [Synthroid] 25 mcg PO DAILY 09/21/17 Nitroglycerin [Nitrostat] 0.4 mg SUBLINGUAL Q5M PRN #20 tab 09/23/17 clopidogrel 75 mg tablet 75 mg PO QDAY #90 tab 09/29/17 Metoprolol Tartrate 50 mg PO BID 12/29/17 Ciprofloxacin HCl [Ciprofloxacin HCl] 500 mg PO BID 01/10/18 Cranberry Fruit Concentrate [Azo Cranberry] 500 mg PO DAILY 01/10/18 Metformin HCl 1,000 mg PO BID 01/10/18 Multivit-Min/FA/Lycopen/Lutein [Centrum Silver Men Tablet] 1 tab PO DAILY 01/10/18 Ciprofloxacin [Cipro] 500 mg PO BID #14 tab 01/12/18 The following prescriptions were given: Ciprofloxacin [Cipro] 500 mg PO BID #14 tab Primary Care Physician: Max Nunez Chi, MD [Primary Care Provider] - Test Results: Test results from this visit will be discussed in further detail at your follow-up appointment, if applicable. Please Follow Up With: Julito Moran MD When: keep appt.
--- NOTE | 2018-01-12 12:28 | PCM.DC.SUM ---
Discharge Date and Diagnosis - Problem List Patient Problems: Active and Suspected Problems (Last Updated 09/29/17 @ 11:25 by AMALIA Conrad) Urinary tract infection associated with catheterization of urinary tract (Acute) stent Date of Admission: 01/10/18 Date of Discharge: 01/12/18 - Primary Discharge Diagnosis Active and Suspected Problems (Last Updated 09/29/17 @ 11:25 by AMALIA Conrad) Urinary tract infection associated with catheterization of urinary tract (Acute) stent - Secondary Discharge Diagnosis Chronic Problems (Last Updated 09/29/17 @ 11:25 by AMALIA Conrad) Atherosclerotic heart disease of [place] coronary artery without angina pectoris (Chronic) Stent to RCA 09/22/2017 S/P coronary artery stent placement (Chronic) Stent to RCA 09/22/2017 CAD (coronary artery disease) (Chronic) Stent to RCA 09/22/2017 History of kidney stones (Chronic) Type 2 diabetes mellitus (Chronic) Hypothyroidism (Chronic) Hyperlipidemia (Chronic) Hypertension (Chronic) Hospital Course and Treatment Operations: None Summary of Care Provided: The patient is a 72 year old male who underwent ureteroscopy and laser lithotripsy of stone fragments had a stent put in was having fevers and chills at home was brought in for further evaluation blood cultures were done which is negative urine culture was done was negative he was put on Rocephin his fever curve is resolved his blood and urine culture only grew out mixed gram-positive to put him back on Cipro he will be discharged home today I will see him tomorrow in the office for follow-up Discharge Diet: No Restrictions Discharge Activity: Return to Normal Activity, May not drive while taking narcotic pain medications. Additional Activity Instructions:: f you have a catheter, remove on ___. If you have any problems after catheter is removed, call [phone] and ask for your doctor to be paged. Please be aware that pain medications may cause nausea. You should typically eat light foods as you take your pain medication. Pain medication may cause constipation, if this is a problem for you, please discuss with your doctor. Home Medications: Medications to take at Discharge Atorvastatin Calcium [Lipitor] 40 mg PO QHS 07/28/15 Glimepiride [Amaryl] 4 mg PO BIDCM 07/28/15 Losartan/Hydrochlorothiazide [Hyzaar 100-12.5 Tablet] 1 tab PO DAILY 07/28/15 Levothyroxine [Synthroid] 25 mcg PO DAILY 09/21/17 Nitroglycerin [Nitrostat] 0.4 mg SUBLINGUAL Q5M PRN #20 tab 09/23/17 clopidogrel 75 mg tablet 75 mg PO QDAY #90 tab 09/29/17 Metoprolol Tartrate 50 mg PO BID 12/29/17 Ciprofloxacin HCl [Ciprofloxacin HCl] 500 mg PO BID 01/10/18 Cranberry Fruit Concentrate [Azo Cranberry] 500 mg PO DAILY 01/10/18 Metformin HCl 1,000 mg PO BID 01/10/18 Multivit-Min/FA/Lycopen/Lutein [Centrum Silver Men Tablet] 1 tab PO DAILY 01/10/18 Ciprofloxacin [Cipro] 500 mg PO BID #14 tab 01/12/18 Following Prescrptions Were Given to Patient: Ciprofloxacin [Cipro] 500 mg PO BID #14 tab Primary Care Physician: Max Nunez Chi, MD [Primary Care Provider] - Please Follow Up With: Julito Moran MD When: keep appt. Medical Necessity - Tobacco Use Smoking Status: Former smoker Tobacco Use: Non-smoker Meaningful Use Info Meaningful Use Diagnoses (Choose all that apply): None applicable
--- NOTE | 2018-01-13 17:04 | CASEMGMT ---
EZE CM DISCHARGE PHONE CALL: TIN Mcmullen, STRATA Attemped discharge phone call to Mr Hitchcock @ [phone]. No answer. Message Left with CM phone number for pt to return call if he has any questions or concerns. Vikas DUEÑAS RN CM
== END 2018-01-12 14:23 | disposition home or self-care (01) | DRG 699 ==
LOC: ED 17:05 → MS2 17:28
PROVIDERS: Admitting Provider Urology; Emergency Provider Emergency Medicine; Family Provider Family Medicine Geriatric Medicine; PCP Family Medicine Geriatric Medicine; Visit Provider Urology
DX: T83.593A Infection and inflammatory reaction due to other urinary stents, initial encounter (principal); N39.0 Urinary tract infection, site not specified; N20.0 Calculus of kidney; Z95.5 Presence of coronary angioplasty implant and graft; I25.10 Atherosclerotic heart disease of native coronary artery without angina pectoris; Z87.442 Personal history of urinary calculi; E11.9 Type 2 diabetes mellitus without complications; Z79.84 Long term (current) use of oral hypoglycemic drugs; E03.9 Hypothyroidism, unspecified; E78.5 Hyperlipidemia, unspecified; I10 Essential (primary) hypertension; Z87.891 Personal history of nicotine dependence
CPT/HCPCS: 36415; 71046; 74176; 80048; 81001; 85007; 85025; 85027; 87040; 87086; 87088; 97802; 99285; J7030; A4216

== ENCOUNTER → 2018-01-13 09:24 | Outpatient (CLI) | payer MEDICARE, OTHER, SELFPAY ==
[2017-09-22 14:17] VITALS: BMI 37.5
== END ==
PROVIDERS: Family Provider Family Medicine Geriatric Medicine; PCP Family Medicine Geriatric Medicine; Visit Provider Urology
DX: N20.0 Calculus of kidney (principal)
CPT/HCPCS: 74018

== ENCOUNTER → 2018-02-16 14:45 | Outpatient (CLI) | payer MEDICARE, OTHER, SELFPAY ==
[2017-09-22 14:17] VITALS: BMI 37.5
[2018-02-16 16:12] LABS: Absolute Lymphocyte Count 1.07 X10^3/ul (0.83-4.51); Absolute Neutrophil Count 4.3 X10^3/uL (2.0-7.7); Basophil# 0.04 X10^3/uL; Basophil% 0.7 % (0-1); Eosinophil# 0.21 X10^3/uL; Eosinophils% 3.5 % (0-5); Hematocrit 41.2 % (40-54); Hemoglobin 13.2 g/dl (13.0-16.5); Lymphocyte # 1.07 X10^3/ul (4.0); Lymphocyte % 17.6 % (19-41); Mean Corpuscular Hgb 28.6 pg (27.0-32.0); Mean Corpuscular Volume 89.2 fL (80-94); Mean Platelet Vol. 11.4 fl (6.2-12.0); Monocyte# 0.49 X10^3/uL; Monocyte% 8.1 % (0-10); Neutrophil # 4.26 X10^3/uL (2.7-7.7); Neutrophil % 70.1 % (47-70); Platelet Count 156 K/mm3 (150-450); RBC Distribution Width SD 52.3 fl (35.1-43.9); Red Blood Count 4.62 M/mm3 (4.6-6.2); White Blood Count 6.1 K/mm3 (4.4-11.0)
[2018-02-16 16:30] LABS: ALB/GLOB Ratio 1.1 RATIO (0.9-2.4); AST(SGOT) 17 U/L (15-37); Alanine Aminotransfer ALT/SGPT 43 U/L (16-61); Albumin, Serum 3.9 g/dL (3.2-5.0); Alkaline Phosphatase 66 U/L (45-117); Anion Gap 8 (5-15); BUN 26 mg/dL (7-18); BUN/Creat Ratio 19.7 RATIO (10-20); Calcium,Total 9.4 mg/dL (8.5-10.1); Chloride 106 mmol/L (98-107); Creatinine, Serum 1.32 mg/dL (0.70-1.30); EST Glomerular Filtration Rate 57 mL/min (>60); Est Glom Filt Rate - Afr Amer 69 mL/min (>60); Globulin 3.6 g/dL (2.2-4.2); Glucose 224 mg/dL (74-106); Potassium 4.5 mmol/L (3.5-5.1); Protein, Total 7.5 g/dL (6.4-8.2); Sodium Level 143 mmol/L (136-145); Thyroid Stim Hormone (TSH) 2.18 uIU/mL (0.358-3.74); Vitamin D,25 Hydroxy 25.1 ng/mL (29.95-100.01)
[2018-02-16 17:16] LABS: POSITIVE COUNT NO; POSITIVE DIFFERENTIAL NO; POSITIVE MORPHOLOGY NO
== END ==
PROVIDERS: Family Provider Family Medicine Geriatric Medicine; PCP Family Medicine Geriatric Medicine; Visit Provider Family Medicine Geriatric Medicine
DX: E11.9 Type 2 diabetes mellitus without complications (principal); I10 Essential (primary) hypertension; E55.9 Vitamin D deficiency, unspecified
CPT/HCPCS: 36415; 80053; 82306; 84443; 85025

== ENCOUNTER → 2018-05-12 09:53 | Outpatient (CLI) | payer MEDICARE, OTHER, SELFPAY ==
[2017-09-22 14:17] VITALS: BMI 37.5
[2018-01-18 13:36] VITALS: BMI 35.7
--- NOTE | 2018-05-12 09:55 | RAD_ITS ---
STUDY: X-RAY - ABDOMEN/PELVIS REASON FOR EXAM: Male, 72 years old. LT SIDE K.S. HX TECHNIQUE: AP supine abdomen and pelvis x-ray COMPARISON: CT abdomen and pelvis 01/10/2018. FINDINGS: Presumably, the provided history indicates left-sided kidney stone. Nonstandard abbreviation. Clinically correlate. Lung bases clear with normal cardiac base. Grossly normal size and position of the solid organs of the abdomen. Unremarkable bowel pattern. Small radiodensities project over the left renal silhouette concordant with 2 kidney stones previously seen on CT abdomen and pelvis within a lower pole calyx. The largest of these measures approximately 4.5 mm. Positioning appears stable. No apparent calculus on the right. No apparent calculus along the course of the ureters. Pelvic phleboliths. Multilevel thoracic and lumbar degenerative disc disease. Generalized osteopenia. Mild bilateral hip DJD. Large dystrophic region of calcification overlying the right hip, stable, most likely to reflect an old calcified hematoma. RAD/Abdomen Single View IMPRESSION: Left renal lower pole calyceal calculi appear stable compared to prior CT imaging of 01/10/2018. Electronically Signed: Shakir Green MD at 11:11 EST Tel , Service support ,
== END ==
PROVIDERS: Family Provider Family Medicine Geriatric Medicine; PCP Family Medicine Geriatric Medicine; Referring Provider Urology; Visit Provider Urology
DX: N20.0 Calculus of kidney (principal)
CPT/HCPCS: 74018

== ENCOUNTER → 2018-08-17 14:54 | Outpatient (CLI) | payer MEDICARE, OTHER, SELFPAY ==
[2017-09-22 14:17] VITALS: BMI 37.5
[2018-01-18 13:36] VITALS: BMI 35.7
[2018-08-17 15:33] LABS: Absolute Lymphocyte Count 1.49 X10^3/ul (0.83-4.51); Absolute Neutrophil Count 4.7 X10^3/uL (2.0-7.7); Basophil# 0.03 X10^3/uL; Basophil% 0.4 % (0-1); Eosinophil# 0.25 X10^3/uL; Eosinophils% 3.5 % (0-5); Hematocrit 43.8 % (40-54); Hemoglobin 14.6 g/dl (13.0-16.5); Lymphocyte # 1.49 X10^3/ul (4.0); Lymphocyte % 20.7 % (19-41); Mean Corp Hgb Conc 33.3 g/gl (32-36); Mean Corpuscular Hgb 29.9 pg (27.0-32.0); Mean Corpuscular Volume 89.8 fL (80-94); Mean Platelet Vol. 11.9 fl (6.2-12.0); Monocyte# 0.69 X10^3/uL; Monocyte% 9.6 % (0-10); Neutrophil # 4.74 X10^3/uL (2.7-7.7); Neutrophil % 65.8 % (47-70); Platelet Count 180 K/mm3 (150-450); RBC Distribution Width CV 14.8 % (11.6-14.6); RBC Distribution Width SD 48.1 fl (35.1-43.9); Red Blood Count 4.88 M/mm3 (4.6-6.2); White Blood Count 7.2 K/mm3 (4.4-11.0)
[2018-08-17 15:47] LABS: POSITIVE COUNT NO; POSITIVE DIFFERENTIAL NO; POSITIVE MORPHOLOGY NO
[2018-08-17 16:07] LABS: ALB/GLOB Ratio 1.1 RATIO (0.9-2.4); AST(SGOT) 27 U/L (15-37); Alanine Aminotransfer ALT/SGPT 56 U/L (16-61); Alkaline Phosphatase 68 U/L (45-117); Anion Gap 6 (5-15); BUN 24 mg/dL (7-18); BUN/Creat Ratio 17.9 RATIO (10-20); Calcium,Total 9.1 mg/dL (8.5-10.1); Chloride 105 mmol/L (98-107); Creatinine, Serum 1.34 mg/dL (0.70-1.30); EST Glomerular Filtration Rate 56 mL/min (>60); Est Glom Filt Rate - Afr Amer 67 mL/min (>60); Globulin 3.5 g/dL (2.2-4.2); Glucose 201 mg/dL (74-106); Protein, Total 7.5 g/dL (6.4-8.2); Sodium Level 140 mmol/L (136-145); Thyroid Stim Hormone (TSH) 4.24 uIU/mL (0.358-3.74)
== END ==
PROVIDERS: Family Provider Family Medicine Geriatric Medicine; PCP Family Medicine Geriatric Medicine; Visit Provider Family Medicine Geriatric Medicine
DX: E11.9 Type 2 diabetes mellitus without complications (principal); I10 Essential (primary) hypertension; E55.9 Vitamin D deficiency, unspecified
CPT/HCPCS: 80053; 82306; 84443; 85025

== ENCOUNTER → 2018-10-12 14:03 | Outpatient (CLI) | payer MEDICARE, OTHER, SELFPAY ==
[2017-09-22 14:17] VITALS: BMI 37.5
[2018-01-18 13:36] VITALS: BMI 35.7
[2018-10-12 13:27] VITALS: BMI 38.0
[2018-10-12 16:17] LABS: Thyroid Stim Hormone (TSH) 1.46 uIU/mL (0.358-3.74)
== END ==
PROVIDERS: Family Provider Family Medicine Geriatric Medicine; PCP Family Medicine Geriatric Medicine; Visit Provider Family Medicine Geriatric Medicine
DX: E03.9 Hypothyroidism, unspecified (principal)
CPT/HCPCS: 36415; 84443

== ENCOUNTER → 2019-02-20 13:04 | Outpatient (CLI) | payer MEDICARE, OTHER, SELFPAY ==
[2017-09-22 14:17] VITALS: BMI 37.5
[2018-10-12 13:27] VITALS: BMI 38.0
[2019-02-20 16:43] LABS: Absolute Lymphocyte Count 1.36 X10^3/uL (0.83-4.51); Absolute Neutrophil Count 4.8 X10^3/uL (2.0-7.7); Basophil# 0.08 X10^3/uL; Basophil% 1.1 % (0-1); Eosinophil# 0.28 X10^3/uL; Eosinophils% 3.9 % (0-5); Hemoglobin 14.2 g/dL (13.0-16.5); Lymphocyte # 1.36 X10^3/ul (4.0); Lymphocyte % 18.7 % (19-41); Mean Corp Hgb Conc 31.6 g/dL (32-36); Mean Corpuscular Hgb 29.1 pg (27.0-32.0); Mean Corpuscular Volume 92.2 fL (80-94); Mean Platelet Vol. 11.9 fl (6.2-12.0); Monocyte# 0.76 X10^3/uL; Monocyte% 10.5 % (0-10); NRBC Flagged by Analyzer 0 % (0-5); Neutrophil # 4.77 X10^3/uL (2.7-7.7); Neutrophil % 65.7 % (47-70); Platelet Count 174 K/mm3 (150-450); RBC Distribution Width CV 14.1 % (11.6-14.6); RBC Distribution Width SD 47.6 fl (35.1-43.9); Red Blood Count 4.88 M/mm3 (4.6-6.2); White Blood Count 7.3 K/mm3 (4.4-11.0)
[2019-02-20 17:26] LABS: ALB/GLOB Ratio 1.1 RATIO (0.9-2.4); AST(SGOT) 24 U/L (15-37); Alanine Aminotransfer ALT/SGPT 48 U/L (16-61); Alkaline Phosphatase 62 U/L (45-117); Anion Gap 7 (5-15); BUN 23 mg/dL (7-18); BUN/Creat Ratio 15.3 RATIO (10-20); Calcium,Total 9.5 mg/dL (8.5-10.1); Chloride 110 mmol/L (98-107); EST Glomerular Filtration Rate 49 mL/min (>60); Est Glom Filt Rate - Afr Amer 59 mL/min (>60); Globulin 3.5 g/dL (2.2-4.2); Glucose 152 mg/dL (74-106); Potassium 5.2 mmol/L (3.5-5.1); Protein, Total 7.5 g/dL (6.4-8.2); Sodium Level 145 mmol/L (136-145); Thyroid Stim Hormone (TSH) 1.92 uIU/mL (0.358-3.74); Uric Acid 8.4 mg/dL (3.5-7.2)
[2019-02-20 17:50] LABS: Hepatitis C Antibody Non-Reactive (Nonreactive); Vitamin D,25 Hydroxy 34.8 ng/mL (29.95-100.01)
== END ==
PROVIDERS: Family Provider Family Medicine Geriatric Medicine; PCP Family Medicine Geriatric Medicine; Visit Provider Family Medicine Geriatric Medicine
DX: E11.9 Type 2 diabetes mellitus without complications (principal); E55.9 Vitamin D deficiency, unspecified; I10 Essential (primary) hypertension; M10.9 Gout, unspecified
CPT/HCPCS: 36415; 80053; 82306; 84443; 84550; 85025; 86803

== ENCOUNTER → 2019-02-22 13:03 | Outpatient (CLI) | payer MEDICARE, OTHER, SELFPAY ==
[2017-09-22 14:17] VITALS: BMI 37.5
[2018-10-12 13:27] VITALS: BMI 38.0
[2019-02-22 14:10] LABS: Anion Gap 8 (5-15); BUN 19 mg/dL (7-18); Calcium,Total 8.7 mg/dL (8.5-10.1); Chloride 108 mmol/L (98-107); Creatinine, Serum 1.19 mg/dL (0.70-1.30); EST Glomerular Filtration Rate 64 mL/min (>60); Est Glom Filt Rate - Afr Amer 77 mL/min (>60); Glucose 137 mg/dL (74-106); Potassium 4.2 mmol/L (3.5-5.1); Sodium Level 145 mmol/L (136-145)
== END ==
LOC: LAB.FUTURE 13:05 → LAB 13:07
PROVIDERS: Family Provider Family Medicine Geriatric Medicine; PCP Family Medicine Geriatric Medicine; Referring Provider Family Medicine Geriatric Medicine; Visit Provider Family Medicine Geriatric Medicine
DX: E87.5 Hyperkalemia (principal)
CPT/HCPCS: 36415; 80048

== ENCOUNTER → 2019-05-08 12:07 | Outpatient (CLI) | payer MEDICARE, OTHER, SELFPAY ==
[2017-09-22 14:17] VITALS: BMI 37.5
[2018-10-12 13:27] VITALS: BMI 38.0
--- NOTE | 2019-05-08 12:11 | RAD_ITS ---
STUDY: X-RAY - ABDOMEN/PELVIS REASON FOR EXAM: Male, 73 years old. Pain. TECHNIQUE: Single AP view of the abdomen / pelvis. COMPARISON: 05/12/2018. FINDINGS: Normal visualized lung bases. There is a moderate amount of colonic fecal material. There is no demonstrated free abdominal air. The visualized liver, spleen and kidneys are grossly normal in size and morphology. Large soft tissue calcification within the right buttock noted. Multiple small calcifications of round shape projecting over the right sacrum, likely within the soft tissues. There are diffuse degenerative changes of the visualized lumbar spine. RAD/Abdomen Single View IMPRESSION: Nonspecific gas pattern with moderate fecal debris as described above. Electronically Signed: Rose Marie Hunter MD at 0:23 EST , Service support ,
[2019-05-08 14:17] LABS: PSA,Total- Diagnostic 2.46 ng/mL (0.0-4.0)
== END ==
PROVIDERS: Family Provider Family Medicine Geriatric Medicine; PCP Family Medicine Geriatric Medicine; Referring Provider Urology; Visit Provider Urology
DX: N20.0 Calculus of kidney (principal); N40.0 Benign prostatic hyperplasia without lower urinary tract symptoms
CPT/HCPCS: 36415; 74018; 84153

== ENCOUNTER → 2019-08-22 13:30 | Outpatient (CLI) | payer MEDICARE, OTHER, SELFPAY ==
[2017-09-22 14:17] VITALS: BMI 37.5
[2018-10-12 13:27] VITALS: BMI 38.0
[2019-08-22 15:17] LABS: Absolute Lymphocyte Count 1.57 X10^3/uL (0.83-4.51); Absolute Neutrophil Count 4.4 X10^3/uL (2.0-7.7); Basophil# 0.05 X10^3/uL; Basophil% 0.7 % (0-1); Eosinophil# 0.19 X10^3/uL; Eosinophils% 2.8 % (0-5); Hematocrit 42.9 % (40-54); Hemoglobin 14.1 g/dL (13.0-16.5); Lymphocyte # 1.57 X10^3/ul (4.0); Lymphocyte % 22.8 % (19-41); Mean Corp Hgb Conc 32.9 g/dL (32-36); Mean Corpuscular Hgb 29.4 pg (27.0-32.0); Mean Corpuscular Volume 89.6 fL (80-94); Mean Platelet Vol. 11.4 fl (6.2-12.0); Monocyte# 0.66 X10^3/uL; Monocyte% 9.6 % (0-10); NRBC Flagged by Analyzer 0 % (0-5); Neutrophil # 4.39 X10^3/uL (2.7-7.7); Neutrophil % 63.8 % (47-70); Platelet Count 175 K/mm3 (150-450); RBC Distribution Width CV 13.9 % (11.6-14.6); RBC Distribution Width SD 45.3 fl (35.1-43.9); Red Blood Count 4.79 M/mm3 (4.6-6.2); White Blood Count 6.9 K/mm3 (4.4-11.0)
[2019-08-22 15:31] LABS: Vitamin D,25 Hydroxy 39.2 ng/mL
[2019-08-22 15:38] LABS: ALB/GLOB Ratio 1.1 RATIO (0.9-2.4); AST(SGOT) 21 U/L (15-37); Alanine Aminotransfer ALT/SGPT 45 U/L (16-61); Albumin, Serum 3.7 g/dL (3.2-5.0); Alkaline Phosphatase 67 U/L (45-117); Anion Gap 7 (5-15); BUN 24 mg/dL (7-18); BUN/Creat Ratio 18.6 RATIO (10-20); Calcium,Total 9.2 mg/dL (8.5-10.1); Chloride 109 mmol/L (98-107); Creatinine, Serum 1.29 mg/dL (0.70-1.30); EST Glomerular Filtration Rate 58 mL/min (>60); Est Glom Filt Rate - Afr Amer 70 mL/min (>60); Globulin 3.4 g/dL (2.2-4.2); Glucose 196 mg/dL (74-106); Potassium 4.3 mmol/L (3.5-5.1); Protein, Total 7.1 g/dL (6.4-8.2); Sodium Level 144 mmol/L (136-145); Thyroid Stim Hormone (TSH) 1.72 uIU/mL (0.358-3.74); Uric Acid 6.8 mg/dL (3.5-7.2)
== END ==
PROVIDERS: PCP Family Medicine Geriatric Medicine; Visit Provider Family Medicine Geriatric Medicine
DX: E11.9 Type 2 diabetes mellitus without complications (principal); E55.9 Vitamin D deficiency, unspecified; I10 Essential (primary) hypertension; M10.9 Gout, unspecified
CPT/HCPCS: 36415; 80053; 82306; 84443; 84550; 85025

== ENCOUNTER 2019-08-31 13:01 | Emergency (ER) | payer MEDICARE, OTHER, SELFPAY ==
[2017-09-22 14:17] VITALS: BMI 37.5
[2018-10-12 13:27] VITALS: BMI 38.0
[2019-08-31] VITALS (14 sets, daily range): BP systolic 95–143; BP diastolic 56–74; PULSE 76–99; RESP 16–20; TEMP 36.6–37.4; O2SAT 92–97; BMI 37.6
--- NOTE | 2019-08-31 13:16 | RAD_ITS ---
STUDY: X-RAY CHEST REASON FOR EXAM: Male, 73 years old. PT C/O FEVER NAUSEA AND FATIGUE X 2 DAYS. STATES HIGHEST FEVER WAS 101.5. DENIES COUGH OR SOB. TECHNIQUE: Single AP portable view of the chest. COMPARISON: Comparison is made with prior examination January 10, 2018. FINDINGS: EKG electrodes are seen. Minimal residual increased linear markings at the left lung base suggestive of a mild scarring. There is no demonstrated pleural abnormality. Normal size heart. Normal mediastinum and j carlos. Normal visualized pulmonary arteries. There is atherosclerotic calcification of the aortic arch with tortuosity. There are degenerative changes of the visualized thoracic spine. Normal visualized ribs, clavicles, and shoulders. There is no demonstrated abnormality of the visualized soft tissue structures of the upper abdomen. RAD/Chest 1 View (Portable) IMPRESSION: Minimal increased linear markings at the left lung base suggestive of left basilar scarring. This has improved as compared to prior study. Electronically Signed: Bayron Snow, at 14:06 EDT , Service support ,
--- NOTE | 2019-08-31 13:16 | EKG12_ITS ---
Test Reason : SOB Blood Pressure : / mmHG Vent. Rate : 096 BPM Atrial Rate : 096 BPM P-R Int : 214 ms QRS Dur : 084 ms QT Int : 350 ms P-R-T Axes : 022 -05 008 degrees QTc Int : 442 ms Sinus rhythm with 1st degree A-V block Inferior infarct , age undetermined Abnormal ECG Confirmed by MELANY SAMSON, WILBER ([id number]), order editor GEGE KAT ([id number]) on 09/04/2019 8:33:41 AM Referred By: JAGDEEP Confirmed By:WILBER MOSLEY MD
--- NOTE | 2019-08-31 13:19 | ED.VIS.GEN ---
History of Present Illness Chief Complaint: Fever Informant: Patient Onset: Days Maximum Severity: Mild Narrative: Patient reports fever low blood pressure fatigue symptoms 2 days ago Coronavirus national emergency no exposures lives with the at home who is not sick he has had no runny nose no cough, history of hypertension diabetes coronary stents x1, bowel bladder habits been unremarkable temperature to 101, again normal bowel bladder habits recently low p.o. intake no chest pain no cough no runny nose no exposures Past Medical History - Allergies and Home Meds Allergies/Adverse Reactions: Allergies morphine Allergy (Verified 08/31/19 13:10) burning in chest tetracycline Allergy (Verified 08/31/19 13:10) Nausea/Vom/Diarrhea-almost fainted Primary Care Physician: Max Nunez Chi, MD [Primary Care Provider] - Past Medical History: - - Includes as above Surgical History: cholecystectomy Smoking Status: Never smoker - Family History Maternal Family History: Family History (Last Updated 01/18/18 @ 13:48 by Mariana Harris) Mother Diabetes Family History: Reports: No pertinent history Paternal Family History: Family History (Last Updated 01/18/18 @ 13:48 by Mariana Harris) Mother Diabetes Family History: Reports: No pertinent history Review of Systems General: Reports: Fever Eyes: Denies: Visual changes - bilaterally, Diplopia ENT: Denies: Rhinorrhea, Sore throat Cardiovascular: Denies: Chest pain, Palpitations Respiratory: Denies: Dyspnea, Cough, Dyspnea on exertion Gastrointestinal: Denies: Abdominal pain, Nausea, Vomiting, Diarrhea, Melena, Hematochezia Genitourinary: Denies: Dysuria, Hematuria, Frequency Musculoskeletal: Denies: Back pain, Extremity Pain Skin: Denies: Rash, Wounds Neurological: Denies: Headache, Weakness, Numbness Physical Exam Vital Signs/Narrative: Vital Signs Temp Pulse Resp BP Pulse Ox 08/31/19 13:16 99.4 F H 96 16 143/64 H 93 08/31/19 13:02 99.4 F H 99 16 95/74 93 General: Well nourished, Well developed, No Acute Distress, - - He has a blood pressure of 90 over palp, his pulse ox is 95% on room air he speaking full sentences in no distress Head: Normocephalic, Atraumatic Eyes: Perrl, EOMI ENT: Moist mucous membranes, No rhinorrhea Neck: Supple, Nontender Cardiovascular: Regular rate, Regular rhythm, No murmurs Respiratory: No distress, CTA bilaterally, Chest nontender Abdomen: Soft, Nontender, Nondistended, Normal bowel sounds Back: Nontender, Normal Inspection Extremities: Nontender, No edema Skin: Normal color, No rash Neurological: Alert, Oriented x3, Cranial nerves II-XII grossly intact, Normal Strength, Normal Sensation Psychological: Normal affect, Normal Mood Diagnostic/Tx/Re-eval - Medical Decision Making Given all the above screening labs IV fluids blood cultures IV antibiotics has not been in the hospital recently The patient's chest x-ray is unremarkable, white count 17,000, lactic acid 2.9, he was started on sepsis protocol IV fluids IV antibiotics cultures obtained, UA showed signs of UTI with about 10 white cells, creatinine elevated 1.7, he is remained hemodynamically stable here given all the above we have asked the hospital in for the management admission Disposition pending hospitalist evaluation 717 his creatinine went from 1.2-1.8 his lactate is 3 he does know there is no reason to admit him evaluation Final impression urinary tract infection leukocytosis elevated lactate level Addendum please note I did speak with Dr. Bryant the hospitalist who did not feel the patient had a UTI based on the above information and did not feel the patient would require admission, I spoke with the patient again about all the above he indicated that he was feeling better he understood the concept of early coven UTI other conditions he wanted to go home he will be started on oral Cipro he understands the urine culture result is pending I spoke with Dr. Nunez his family physician made him aware of the above and he will follow-up with Dr. Nunez return for change in symptoms, Dr. Nunez stated he would see the patient tomorrow at 9 AM The final disposition is discharged home ED Disposition - Plan for ED Patient: Diagnosis: Urinary tract infection Prescriptions: Ciprofloxacin [Cipro] 500 mg PO BID #20 tab Prescription Printed Referrals: Max Nunez Chi, MD [Primary Care Provider] - Additional Instructions: Dr. Nunez would like to see you tomorrow at 9 AM in the office, please have the urine culture result checked
[2019-08-31] MEDS: 0.9% Normal Saline 1,000 ML 999 ML IV ×3 (13:24→16:43)
[2019-08-31 13:37] LABS: Absolute Lymphocyte Count 0.87 X10^3/uL (0.83-4.51); Basophil# 0.04 X10^3/uL; Basophil% 0.2 % (0-1); Eosinophil# 0.08 X10^3/uL; Eosinophils% 0.5 % (0-5); Hematocrit 43.5 % (40-54); Hemoglobin 14.4 g/dL (13.0-16.5); Lymphocyte # 0.87 X10^3/ul (4.0); Lymphocyte % 5.1 % (19-41); Mean Corp Hgb Conc 33.1 g/dL (32-36); Mean Corpuscular Volume 87.5 fL (80-94); Mean Platelet Vol. 11.3 fl (6.2-12.0); Monocyte# 1.92 X10^3/uL; Monocyte% 11.2 % (0-10); NRBC Flagged by Analyzer 0 % (0-5); Neutrophil # 13.99 X10^3/uL (2.7-7.7); POSITIVE DIFFERENTIAL YES; POSITIVE MORPHOLOGY YES; Platelet Count 131 K/mm3 (150-450); RBC Distribution Width CV 14.1 % (11.6-14.6); RBC Distribution Width SD 44.8 fl (35.1-43.9); Red Blood Count 4.97 M/mm3 (4.6-6.2); White Blood Count 17.1 K/mm3 (4.4-11.0)
[2019-08-31] MEDS: Acetaminophen 500 MG Tablet 1000 MG PO (13:39)
[2019-08-31 13:49] LABS: International Normalized Ratio 1.2; Partial Thromboplast Time 32.2 Seconds (24.1-36.2); Prothrombin Time (Protime)PT. 14.9 SECONDS (11.7-14.9)
[2019-08-31 13:53] LABS: Differential Indicated SCAN CRITERIA MET
[2019-08-31 13:54] LABS: AST(SGOT) 20 U/L (15-37); Alanine Aminotransfer ALT/SGPT 27 U/L (16-61); Albumin, Serum 3.2 g/dL (3.2-5.0); Alkaline Phosphatase 55 U/L (45-117); Anion Gap 9 (5-15); BUN 31 mg/dL (7-18); BUN/Creat Ratio 18.5 RATIO (10-20); Calcium,Total 8.8 mg/dL (8.5-10.1); Chloride 102 mmol/L (98-107); Creatinine, Serum 1.68 mg/dL (0.70-1.30); EST Glomerular Filtration Rate 43 mL/min (>60); Est Glom Filt Rate - Afr Amer 52 mL/min (>60); Estimated Creatinine Clearance 31.52 ml/min; Globulin 3.3 g/dL (2.2-4.2); Glucose 178 mg/dL (74-106); Potassium 3.8 mmol/L (3.5-5.1); Protein, Total 6.5 g/dL (6.4-8.2); Sodium Level 135 mmol/L (136-145)
[2019-08-31] MEDS: 0.9% Normal Saline 1,000 ML 150 ML IV (14:07)
[2019-08-31 14:16] LABS: Lactic Acid 2.9 mmol/L (0.4-1.9)
[2019-08-31 16:45] LABS: Mucous, Urine 0 SEEN /hpf (<or=2+)
[2019-08-31 16:49] LABS: Color, Urine Yellow (Yellow); Glucose, Dipstick Normal (Normal); Ketone-Dipstick Negative (Negative); Leukocyte Esterase-Dipstick 25 /ul (Negative); Nitrite-Dipstick Negative (Negative); Occult Blood-Urine 10 /ul (Negative); Protein-Dipstick 30 mg/dl (Negative); Urine Bilirubin Dipstick Negative (Negative); Urine Clarity Sl. Cloudy (Clear); Urine Urobilinogen Normal (Normal)
[2019-08-31 17:16] LABS: Coarse Granular Cast 0-5 SEEN /lpf (0-5 /lpf); Fine Granular Cast- Urine 0-5 SEEN /lpf (0-5); Squamous Epithelial Cells - UA 0-5 SEEN /hpf (0-5)
[2019-08-31 17:18] LABS: Bacteria RARE /hpf (None Seen); Red Blood Cells-Urine 0-5 SEEN /hpf (0-5)
[2019-08-31 17:19] LABS: White Blood Cells 5-10 SEEN /hpf (0-5)
[2019-08-31 17:32] LABS: Reflex Lactate? Y
--- NOTE | 2019-08-31 18:04 | PCM.CONS.GEN ---
Reason for Consult Date of Consultation: 08/31/19 Reason for Consultation: SIRS History of Present Illness: The patient is a 73 year old M who since yesterday has been having a fever up to about 102. Feels slightly fatigued but denies any other constitutional symptoms. He denies any anosmia, cough, shortness of breath, congestion. Patient presented to the emergency room was found to have a white count of 17.2+ a lactic acid that was 2.9. Patient had a work-up that was unremarkable. Concern that was at that the patient had severe sepsis and did receive broad-spectrum antibiotics in the emergency room. Patient had a mild elevation in his leukocyte esterase and 5-10 white blood cell the patient denies any history of any urinary tract infection nor any dysuria. He does state that he has a history of kidney stones but does not feel that he is having kidney stone at this time. He denies any sick contacts, denies any exposure to anyone with Covid 19. [] Past Medical History Past Medical History (Chronic Problems): Chronic Problems (Last Updated 10/12/18 @ 13:48 by AMALIA Conrad) Atherosclerotic heart disease of [place] coronary artery without angina pectoris (Chronic) Stent to RCA 09/22/2017 S/P coronary artery stent placement (Chronic) Stent to RCA 09/22/2017 CAD (coronary artery disease) (Chronic ~09/22/17) Stent to RCA 09/22/2017 History of kidney stones (Chronic) Type 2 diabetes mellitus (Chronic) Hypothyroidism (Chronic) Hyperlipidemia (Chronic) Hypertension (Chronic) Medical History: Medical History (Last Reviewed 08/31/19 @ 18:[address] Francisco Duncan, DO) Atherosclerotic heart disease of [place] coronary artery without angina pectoris (Chronic) I25.10 Stent to RCA 09/22/2017 Type 2 diabetes mellitus (Chronic) E11.9 Hyperlipidemia (Chronic) E78.5 Hypertension (Chronic) I10 Angina pectoris (Resolved) I20.9 Allergies morphine Allergy (Verified 08/31/19 13:10) burning in chest tetracycline Allergy (Verified 08/31/19 13:10) Nausea/Vom/Diarrhea-almost fainted Home Medications: Ambulatory Orders Medication Instructions Recorded Atorvastatin Calcium [Lipitor] 40 mg PO QHS 07/28/15 Glimepiride [Amaryl] 4 mg PO BIDCM 07/28/15 Losartan/Hydrochlorothiazide 1 tab PO DAILY 07/28/15 [Hyzaar 100-12.5 Tablet] Nitroglycerin (INPATIENT USE) 0.4 mg SUBLINGUAL Q5M PRN #20 tab 09/23/17 [Nitrostat] Multivit-Min/FA/Lycopen/Lutein 1 tab PO DAILY 01/10/18 [Centrum Silver Men Tablet] aspirin 81 mg tablet,delayed 81 mg PO DAILY 01/18/18 release metoprolol tartrate 50 mg tablet 50 mg PO BID #180 tab 05/29/19 Ciprofloxacin [Cipro] 500 mg PO BID #20 tab 08/31/19 Clopidogrel Bisulfate [Clopidogrel] 75 mg PO DAILY 08/31/19 Levothyroxine Sodium [Synthroid] 50 mcg PO DAILY 08/31/19 metFORMIN HCl [Glucophage] 1,000 mg PO BID 08/31/19 Surgical History: Surgical History (Last Reviewed 08/31/19 @ 18:[address] Francisco Duncan DO) S/P coronary artery stent placement (Chronic) Z95.5 Stent to RCA 09/22/2017 History of cholecystectomy Z90.49 History of ureter stent Onset Date: ~01/05/18 Surgical History: cholecystectomy Psychiatric History: No pertinent psych hx Smoking Status: Never smoker Tobacco Use: Non-smoker - *Family History Maternal Family History: Family History (Last Reviewed 08/31/19 @ 18:[address] Francisco Duncan DO) Mother Diabetes History Items: No pertinent history Paternal Family History: Family History (Last Reviewed 08/31/19 @ 18:[address] Francisco Duncan DO) Mother Diabetes History Items: No pertinent history Review of Systems Constitutional: Reports: Fever, Malaise. Denies: Anorexia Eyes: Denies: Blurred vision, Double vision HEENT: Denies: Head Aches, Sinus Congestion, Sinus Drainage Cardiovascular: Denies: Chest Pain, Palpitations Respiratory: Denies: Cough, Shortness of breath at rest, Sputum production Gastrointestinal: Denies: Abdominal Pain, Nausea, Vomiting Genitourinary: Denies: Dysuria Skin: Denies: Rash, Wounds Hematologic/ Lymphatic: Denies: Easy Bleeding, Hx of blood clot Comment: All review of systems were negative except as mentioned above in the history of present illness and the other review of systems. Patient Problems: Active and Suspected Problems (Last Updated 10/12/18 @ 13:48 by AMALIA Conrad) Urinary tract infection (Acute) - Physical Exam Vitals/I&O's: Vital Signs Temp Pulse Resp BP Pulse Ox 36.7 C 76 16 127/73 H 97 08/31/19 17:48 08/31/19 17:48 08/31/19 17:48 08/31/19 17:48 08/31/19 17:48 Oxygen Flow Rate (L/min) 2 Oxygen Delivery Method Room Air Weight: 96.39 kg Body Mass Index (BMI) 37.6 Intake and Output for Last 24 Hours 08/29/19 08/30/19 08/31/19 23:59 23:59 23:59 Intake Total 2875 / 2875 Balance 2875 / 2875 General: Alert, Cooperative, No apparent distress HEENT: Atraumatic, Normocephalic, - - Malampati stage III Oral: Moist Mucosa, No Gingival or Mucosal Lesions/ Ulcerations Neck: No Nodes, Trachea Midline Lungs: Clear to auscultation, Normal air movement, No rhonchi, No wheeze, No rales Cardiovascular: Regular rate, Regular Rhythm, Normal S1, Normal S2, No murmurs Abdomen: Bowel Sounds Present, Soft, Non Tender, Non-Distended, No Hepato-splenomegaly Extremities: No edema, No Calf Tenderness Skin: No rashes, No breakdown Musculoskeletal: No Tenderness to Palpation of Joints or Extremities, No Muscle Wasting Neurological: Motor Exam 5/5 strength throughout, - - No clonus Psych/Mental Status: Normal Affect, Appropriate Microbiology Past 72 Hours 08/31/19 13:50 Mucosa - Nose Respiratory Panel (PCR) - Final 08/31/19 13:50 Mucosa - Nose Influenza Types A,B Direct FA (LUZMARIA) - Final Laboratory Results 08/31/19 12:55: WBC 17.1 H, RBC 4.97, Hgb 14.4, Hct 43.5, MCV 87.5, MCH 29.0, MCHC 33.1, RDW Std Deviation 44.8 H, RDW Coeff of Linda 14.1, Plt Count 131 L, MPV 11.3, Immature Gran % (Auto) 1.000 H, Neut % (Auto) 82.0 H, Lymph % (Auto) 5.1 L, [place] % (Auto) 11.2 H, Eos % (Auto) 0.5, Baso % (Auto) 0.2, Absolute Neuts (auto) 14.0 H, Absolute Lymphs (auto) 0.87, Nucleated RBC % 0, Differential Comment COMMENT, Diff Path Review September foll 08/31/19 12:55: PT 14.9, INR 1.2, APTT 32.2 08/31/19 12:55: Sodium 135 L, Potassium 3.8, Chloride 102, Carbon Dioxide 24.0, Anion Gap 9, BUN 31 H, Creatinine 1.68 H, Estim Creat Clear Calc 31.52, Est GFR (MDRD) Af Amer 52 L, Est GFR (MDRD) Non-Af 43 L, BUN/Creatinine Ratio 18.5, Glucose 178 H, Calcium 8.8, Total Bilirubin 1.80 H, AST 20, ALT 27, Alkaline Phosphatase 55, Troponin I < 0.015, Total Protein 6.5, Albumin 3.2, Globulin 3.3, Albumin/Globulin Ratio 1.0 08/31/19 13:10: Lactic Acid 2.9 H* 08/31/19 16:40: Urine Color Yellow, Urine Clarity Sl. Cloudy, Urine pH 5.0, Ur Specific Tyler 1.020, Urine Protein 30 H, Urine Glucose (UA) Normal, Urine Ketones Negative, Urine Occult Blood 10 H, Urine Nitrite Negative, Urine Bilirubin Negative, Urine Urobilinogen Normal, Ur Leukocyte Esterase 25 H, Urine RBC 0-5 SEEN, Urine WBC 5-10 SEEN, Ur Squamous Epith Cells 0-5 SEEN, Urine Bacteria RARE, Fine Granular Casts 0-5 SEEN, Coarse Granular Casts 0-5 SEEN, Urine Mucus 0 SEEN Chest x-ray personally reviewed and showed normal airways without any pulmonary edema nor infiltrate. Current Medications Sodium Chloride () 1,000 mls @ 150 mls/hr IV .[id number] MIRIAM Last Admin: 08/31/19 14:07 Dose: 150 mls/hr Documented by: Assessment/Plan All Active Problems (Last Updated 10/12/18 @ 13:48 by AMALIA Conrad) Urinary tract infection (Acute) Urinary tract infection associated with catheterization of urinary tract (Acute) Angina pectoris (Acute) Stable angina (Acute) Angina pectoris (Resolved) 1. Systemic inflammatory response syndrome: No pneumonia, no urinary tract infection. Influenza was negative as well as a respiratory panel was negative as well. Patient does not have definitive symptoms that would be concerning for COVID 19. I told the patient that but I told him also that we do not know definitively what symptoms are associated with coded as there could be asymptomatic carriers or those with mild illness. So he could simply have just another viral illness though his respiratory panel was negative. Advised patient to return or contact his physician if he is feeling worse. I told the patient that there are people that get worse with no obvious risk factors as compared to others which we do not know who those individuals would be at this time. Patient's vital signs are stable and I did talk with the patient about going home and convalescing at home which he was in agreement to. 2. Acute kidney injury: Creatinine up to 1.68. Baseline around 1.29 which he had on 21 August. Encouraged patient to drink more fluids. Thank you for the consult. Patient should follow-up with his primary care physician next 1 to 2 weeks either with an in person visit or via telemedicine. Office Visits / Consults: [id number] OP Consult L4
[2019-08-31] MEDS: Ciprofloxacin 250 MG Tablet 500 MG PO (18:15)
[2019-09-01 10:41] LABS: Pathologist Review Reviewed
== END 2019-08-31 18:34 | disposition home or self-care (01) ==
LOC: ED 13:42
PROVIDERS: Emergency Provider Emergency Medicine; PCP Family Medicine Geriatric Medicine
DX: N39.0 Urinary tract infection, site not specified (principal); N17.9 Acute kidney failure, unspecified; I25.118 Atherosclerotic heart disease of native coronary artery with other forms of angina pectoris; I10 Essential (primary) hypertension; E11.9 Type 2 diabetes mellitus without complications; E78.5 Hyperlipidemia, unspecified; E03.9 Hypothyroidism, unspecified; Z87.442 Personal history of urinary calculi; Z95.5 Presence of coronary angioplasty implant and graft; Z79.82 Long term (current) use of aspirin; Z79.84 Long term (current) use of oral hypoglycemic drugs
CPT/HCPCS: 71045; 80053; 81001; 83605; 84484; 85025; 85610; 85730; 87040; 87077; 87086; 87088; 87186; 87633; 87804; 93005; 96361; 96365; 96367; 99285; J7030; J7050; A4216

== ENCOUNTER → 2019-09-01 12:46 | Outpatient (CLI) | payer MEDICARE, OTHER, SELFPAY ==
[2017-09-22 14:17] VITALS: BMI 37.5
[2019-08-31 13:25] VITALS: BMI 37.6
[2019-09-01 13:05] LABS: Absolute Lymphocyte Count 1.23 X10^3/uL (0.83-4.51); Absolute Neutrophil Count 7.6 X10^3/uL (2.0-7.7); Basophil# 0.01 X10^3/uL; Basophil% 0.1 % (0-1); Eosinophil# 0.03 X10^3/uL; Eosinophils% 0.3 % (0-5); Hemoglobin 12.7 g/dL (13.0-16.5); Lymphocyte # 1.23 X10^3/ul (4.0); Lymphocyte % 12.6 % (19-41); Mean Corp Hgb Conc 32.6 g/dL (32-36); Mean Corpuscular Hgb 28.9 pg (27.0-32.0); Mean Corpuscular Volume 88.8 fL (80-94); Mean Platelet Vol. 11.2 fl (6.2-12.0); Monocyte# 0.86 X10^3/uL; Monocyte% 8.8 % (0-10); NRBC Flagged by Analyzer 0 % (0-5); Neutrophil # 7.57 X10^3/uL (2.7-7.7); Neutrophil % 77.6 % (47-70); Platelet Count 125 K/mm3 (150-450); RBC Distribution Width CV 13.8 % (11.6-14.6); Red Blood Count 4.39 M/mm3 (4.6-6.2); White Blood Count 9.8 K/mm3 (4.4-11.0)
[2019-09-01 13:26] LABS: Lactic Acid 1.7 mmol/L (0.4-1.9)
== END ==
PROVIDERS: PCP Family Medicine Geriatric Medicine; Visit Provider Family Medicine Geriatric Medicine
DX: D72.89 Other specified disorders of white blood cells (principal); E87.2 Acidosis
CPT/HCPCS: 36415; 83605; 85025

== ENCOUNTER → 2020-03-25 14:28 | Outpatient (CLI) | payer MEDICARE, OTHER, SELFPAY ==
[2017-09-22 14:17] VITALS: BMI 37.5
[2019-11-23 10:33] VITALS: BMI 36.6
[2020-03-25 17:00] LABS: Absolute Neutrophil Count 5.1 X10^3/uL (2.0-7.7); Basophil# 0.05 X10^3/uL; Basophil% 0.7 % (0-1); Eosinophil# 0.26 X10^3/uL; Eosinophils% 3.6 % (0-5); Hematocrit 45.8 % (40-54); Hemoglobin 14.5 g/dL (13.0-16.5); Lymphocyte % 15.2 % (19-41); Mean Corp Hgb Conc 31.7 g/dL (32-36); Mean Corpuscular Hgb 28.9 pg (27.0-32.0); Mean Corpuscular Volume 91.2 fL (80-94); Mean Platelet Vol. 11.8 fl (6.2-12.0); Monocyte# 0.69 X10^3/uL; Monocyte% 9.5 % (0-10); NRBC Flagged by Analyzer 0 % (0-5); Neutrophil # 5.11 X10^3/uL (2.7-7.7); Neutrophil % 70.7 % (47-70); Platelet Count 175 K/mm3 (150-450); RBC Distribution Width CV 14.2 % (11.6-14.6); RBC Distribution Width SD 47.1 fl (35.1-43.9); Red Blood Count 5.02 M/mm3 (4.6-6.2); White Blood Count 7.2 K/mm3 (4.4-11.0)
[2020-03-25 17:12] LABS: Vitamin D,25 Hydroxy 36.9 ng/mL
[2020-03-25 17:31] LABS: ALB/GLOB Ratio 1.1 RATIO (0.9-2.4); AST(SGOT) 18 U/L (15-37); Alanine Aminotransfer ALT/SGPT 42 U/L (16-61); Albumin, Serum 3.8 g/dL (3.2-5.0); Alkaline Phosphatase 58 U/L (45-117); Anion Gap 7 (5-15); BUN 20 mg/dL (7-18); BUN/Creat Ratio 13.6 RATIO (10-20); Calcium,Total 9.9 mg/dL (8.5-10.1); Chloride 107 mmol/L (98-107); Creatinine, Serum 1.47 mg/dL (0.70-1.30); EST Glomerular Filtration Rate 50 mL/min (>60); Est Glom Filt Rate - Afr Amer 60 mL/min (>60); Globulin 3.6 g/dL (2.2-4.2); Glucose 157 mg/dL (74-106); Potassium 4.7 mmol/L (3.5-5.1); Protein, Total 7.4 g/dL (6.4-8.2); Sodium Level 144 mmol/L (136-145); Thyroid Stim Hormone (TSH) 1.75 uIU/mL (0.358-3.74)
== END ==
PROVIDERS: PCP Family Medicine Geriatric Medicine; Visit Provider Family Medicine Geriatric Medicine
DX: E11.9 Type 2 diabetes mellitus without complications (principal); E55.9 Vitamin D deficiency, unspecified; I10 Essential (primary) hypertension
CPT/HCPCS: 36415; 80053; 82306; 84443; 85025

== ENCOUNTER → 2020-05-09 08:50 | Outpatient (CLI) | payer MEDICARE, OTHER, SELFPAY ==
[2017-09-22 14:17] VITALS: BMI 37.5
[2019-11-23 10:33] VITALS: BMI 36.6
--- NOTE | 2020-05-09 08:53 | RAD_ITS ---
STUDY: X-RAY - ABDOMEN/PELVIS REASON FOR EXAM: Male, 74 years old. YEARLY KIDNEY STONE CHECK. HX OF PREVIOUS STONES. NO ISSUES OR PAIN CURRENTLY TECHNIQUE: Single AP view of the abdomen / pelvis. COMPARISON: None. FINDINGS: Normal visualized lung bases. There is a moderate amount of colonic fecal material. There is a 7.6 mm calculus in the midpole region of the left kidney. There are calcified phleboliths in the pelvis. There is a 12.5 cm x 2.9 cm soft tissue mass with calcifications overlying the right lateral pelvis and proximal right femur. There are diffuse degenerative changes of the visualized lumbar spine. RAD/Abdomen Single View IMPRESSION: 7.6 mm calculus overlying the mid pole region of the left kidney. 4.5 cm x 2.9 cm soft tissue mass with calcifications overlying the right lateral pelvis and proximal right femur. Electronically Signed: Bayron Snow, at 12:36 EST , Service support ,
== END ==
PROVIDERS: PCP Family Medicine Geriatric Medicine; Referring Provider Urology; Visit Provider Urology
DX: N20.0 Calculus of kidney (principal)
CPT/HCPCS: 74018

== ENCOUNTER → 2020-09-30 14:05 | Outpatient (CLI) | payer MEDICARE, OTHER, SELFPAY ==
[2017-09-22 14:17] VITALS: BMI 37.5
[2019-11-23 10:33] VITALS: BMI 36.6
[2020-09-30 15:44] LABS: Absolute Lymphocyte Count 1.58 X10^3/uL (0.83-4.51); Absolute Neutrophil Count 5.7 X10^3/uL (2.0-7.7); Basophil# 0.07 X10^3/uL; Basophil% 0.8 % (0-1); Eosinophil# 0.22 X10^3/uL; Eosinophils% 2.6 % (0-5); Hematocrit 45.3 % (40-54); Hemoglobin 14.4 g/dL (13.0-16.5); Lymphocyte # 1.58 X10^3/ul (0.83-4.51); Lymphocyte % 18.9 % (19-41); Mean Corp Hgb Conc 31.8 g/dL (32-36); Mean Corpuscular Hgb 28.6 pg (27.0-32.0); Mean Corpuscular Volume 90.1 fL (80-94); Mean Platelet Vol. 11.3 fl (6.2-12.0); Monocyte# 0.76 X10^3/uL; Monocyte% 9.1 % (0-10); NRBC Flagged by Analyzer 0 % (0-5); Neutrophil # 5.69 X10^3/uL (2.7-7.7); Neutrophil % 68.4 % (47-70); Platelet Count 192 K/mm3 (150-450); RBC Distribution Width CV 13.5 % (11.6-14.6); RBC Distribution Width SD 44.6 fl (35.1-43.9); Red Blood Count 5.03 M/mm3 (4.6-6.2); White Blood Count 8.3 K/mm3 (4.4-11.0)
[2020-09-30 16:00] LABS: Vitamin D,25 Hydroxy 37.4 ng/mL
[2020-09-30 16:08] LABS: AST(SGOT) 20 U/L (15-37); Alanine Aminotransfer ALT/SGPT 51 U/L (16-61); Albumin, Serum 3.8 g/dL (3.2-5.0); Alkaline Phosphatase 62 U/L (45-117); Anion Gap 4 (5-15); BUN 18 mg/dL (7-18); BUN/Creat Ratio 13.4 RATIO (10-20); Calcium,Total 9.7 mg/dL (8.5-10.1); Chloride 108 mmol/L (98-107); Creatinine, Serum 1.34 mg/dL (0.70-1.30); EST Glomerular Filtration Rate 55 mL/min (>60); Est Glom Filt Rate - Afr Amer 67 mL/min (>60); Globulin 3.9 g/dL (2.2-4.2); Glucose 183 mg/dL (74-106); Protein, Total 7.7 g/dL (6.4-8.2); Sodium Level 142 mmol/L (136-145)
== END ==
PROVIDERS: PCP Family Medicine Geriatric Medicine; Visit Provider Family Medicine Geriatric Medicine
DX: E11.9 Type 2 diabetes mellitus without complications (principal); E55.9 Vitamin D deficiency, unspecified; I10 Essential (primary) hypertension
CPT/HCPCS: 36415; 80053; 82306; 84443; 85025

== ENCOUNTER → 2021-04-09 13:29 | Outpatient (CLI) | payer MEDICARE, OTHER, SELFPAY ==
[2017-09-22 14:17] VITALS: BMI 37.5
[2021-04-09 17:14] LABS: Absolute Lymphocyte Count 1.29 X10^3/uL (0.83-4.51); Absolute Neutrophil Count 5.2 X10^3/uL (2.0-7.7); Basophil# 0.06 X10^3/uL; Basophil% 0.8 % (0-1); Eosinophil# 0.19 X10^3/uL; Eosinophils% 2.5 % (0-5); Hemoglobin 14.7 g/dL (13.0-16.5); Lymphocyte # 1.29 X10^3/ul (0.83-4.51); Lymphocyte % 17.2 % (19-41); Mean Corpuscular Hgb 28.7 pg (27.0-32.0); Mean Corpuscular Volume 89.7 fL (80-94); Mean Platelet Vol. 11.3 fl (6.2-12.0); Monocyte# 0.72 X10^3/uL; Monocyte% 9.6 % (0-10); NRBC Flagged by Analyzer 0 % (0-5); Neutrophil # 5.22 X10^3/uL (2.7-7.7); Neutrophil % 69.6 % (47-70); Platelet Count 160 K/mm3 (150-450); Red Blood Count 5.13 M/mm3 (4.6-6.2); White Blood Count 7.5 K/mm3 (4.4-11.0)
[2021-04-09 17:45] LABS: AST(SGOT) 22 U/L (15-37); Alanine Aminotransfer ALT/SGPT 49 U/L (16-61); Albumin, Serum 3.8 g/dL (3.2-5.0); Alkaline Phosphatase 64 U/L (45-117); Anion Gap 6 (5-15); BUN 28 mg/dL (7-18); BUN/Creat Ratio 19.9 RATIO (10-20); Calcium,Total 9.7 mg/dL (8.5-10.1); Chloride 108 mmol/L (98-107); Creatinine, Serum 1.41 mg/dL (0.70-1.30); EST Glomerular Filtration Rate 52 mL/min (>60); Est Glom Filt Rate - Afr Amer 63 mL/min (>60); Globulin 3.9 g/dL (2.2-4.2); Glucose 198 mg/dL (74-106); Protein, Total 7.7 g/dL (6.4-8.2); Sodium Level 142 mmol/L (136-145); Thyroid Stim Hormone (TSH) 1.62 uIU/mL (0.358-3.74); Uric Acid 9.1 mg/dL (3.5-7.2)
[2021-04-09 18:11] LABS: Vitamin D,25 Hydroxy 39.4 ng/mL
== END ==
PROVIDERS: PCP Family Medicine Geriatric Medicine; Visit Provider Family Medicine Geriatric Medicine
DX: E11.9 Type 2 diabetes mellitus without complications (principal); E55.9 Vitamin D deficiency, unspecified; I10 Essential (primary) hypertension; M10.9 Gout, unspecified
CPT/HCPCS: 36415; 80053; 82306; 84443; 84550; 85025

== ENCOUNTER → 2021-04-30 | Outpatient (CLI) | payer MEDICARE, OTHER, SELFPAY ==
[2017-09-22 14:17] VITALS: BMI 37.5
[2021-04-30 13:06] LABS: Protein:Creat Ratio 155 mg/g CRE (0-200)
== END | disposition home or self-care (01) ==
LOC: LABSPEC 11:09
PROVIDERS: PCP Family Medicine Geriatric Medicine; Visit Provider Internal Medicine Nephrology
DX: N18.31 Chronic kidney disease, stage 3a (principal)
CPT/HCPCS: 82570; 84156

== ENCOUNTER → 2021-05-06 14:00 | Outpatient (CLI) | payer MEDICARE, OTHER, SELFPAY ==
[2017-09-22 14:17] VITALS: BMI 37.5
--- NOTE | 2021-05-06 14:20 | RAD_ITS ---
INDICATION: calculus of kidney EXAMINATION/TECHNIQUE: X-RAY - XR Abdomen 1 View COMPARISON: 05/09/2020 FINDINGS: BOWEL GAS PATTERN: Non-obstructive. No bowel or stomach distention. FREE AIR: Not assessed on a single supine view. ORGANOMEGALY: Not seen. CALCIFICATIONS: No calcifications projecting over the renal shadows. LOWER CHEST: No acute pathology. BONES AND SOFT TISSUES: Redemonstration of a 4.5 cm soft tissue mass with calcifications overlying the right lateral pelvis and proximal right femur could represent an old calcified hematoma. Degenerative changes of the spine. RAD/Abdomen Single View IMPRESSION: No renal or ureteral stones visualized. Electronically Signed: Fercho Strickland MD at 17:32 EST Tel , Service support ,
== END ==
PROVIDERS: PCP Family Medicine Geriatric Medicine; Referring Provider Urology; Visit Provider Urology
DX: N20.0 Calculus of kidney (principal); Z12.5 Encounter for screening for malignant neoplasm of prostate
CPT/HCPCS: 36415; 74018; 84153; G0103

== ENCOUNTER → 2021-05-06 14:51 | Outpatient (CLI) | payer MEDICARE, OTHER, SELFPAY ==
[2017-09-22 14:17] VITALS: BMI 37.5
[2021-05-06 16:05] LABS: PSA,Total - Annual Screen 1.97 ng/mL (0.00-4.00)
== END ==
PROVIDERS: PCP Family Medicine Geriatric Medicine; Visit Provider Urology
DX: Z12.5 Encounter for screening for malignant neoplasm of prostate (principal)
CPT/HCPCS: 36415; 84153; G0103

== ENCOUNTER 2021-08-12 13:42 | Outpatient (CLI) | payer MEDICARE, OTHER, SELFPAY ==
[2017-09-22 14:17] VITALS: BMI 37.5
[2021-08-12 17:32] LABS: Albumin, Serum 3.7 g/dL (3.2-5.0); BUN 30 mg/dL (7-18); BUN/Creat Ratio 20.8 RATIO (10-20); Calcium,Total 9.8 mg/dL (8.5-10.1); Chloride 104 mmol/L (98-107); Creatinine, Serum 1.44 mg/dL (0.70-1.30); EST Glomerular Filtration Rate 51 mL/min (>60); Est Glom Filt Rate - Afr Amer 61 mL/min (>60); Glucose 117 mg/dL (74-106); Phosphorus 3.8 mg/dL (2.5-4.9); Potassium 3.8 mmol/L (3.5-5.1); Sodium Level 140 mmol/L (136-145)
[2021-08-13 10:11] LABS: PTHIN 59.5 pg/mL (18.4-80.1)
== END 2021-08-12 23:59 | disposition home or self-care (01) ==
LOC: POLAB3 13:43
PROVIDERS: PCP Family Medicine Geriatric Medicine; Visit Provider Internal Medicine Nephrology
DX: N18.31 Chronic kidney disease, stage 3a (principal)
CPT/HCPCS: 36415; 80069; 83970

== ENCOUNTER → 2021-10-08 | Outpatient (CLI) | payer MEDICARE, OTHER, SELFPAY ==
[2017-09-22 14:17] VITALS: BMI 37.5
[2021-10-08 17:19] LABS: Absolute Lymphocyte Count 1.48 X10^3/uL (0.83-4.51); Absolute Neutrophil Count 4.8 X10^3/uL (2.0-7.7); Basophil# 0.07 X10^3/uL; Basophil% 0.9 % (0-1); Eosinophil# 0.22 X10^3/uL; Hematocrit 45.9 % (40-54); Hemoglobin 14.6 g/dL (13.0-16.5); Lymphocyte # 1.48 X10^3/ul (0.83-4.51); Lymphocyte % 19.9 % (19-41); Mean Corp Hgb Conc 31.8 g/dL (32-36); Mean Corpuscular Hgb 28.7 pg (27.0-32.0); Mean Corpuscular Volume 90.4 fL (80-94); Mean Platelet Vol. 11.1 fl (6.2-12.0); Monocyte# 0.86 X10^3/uL; Monocyte% 11.6 % (0-10); NRBC Flagged by Analyzer 0 % (0-5); Neutrophil # 4.79 X10^3/uL (2.7-7.7); Neutrophil % 64.3 % (47-70); Platelet Count 191 K/mm3 (150-450); RBC Distribution Width CV 14.1 % (11.6-14.6); RBC Distribution Width SD 47.1 fl (35.1-43.9); Red Blood Count 5.08 M/mm3 (4.6-6.2); White Blood Count 7.4 K/mm3 (4.4-11.0)
[2021-10-08 17:54] LABS: ALB/GLOB Ratio 1.2 RATIO (0.9-2.4); AST(SGOT) 24 U/L (15-37); Alanine Aminotransfer ALT/SGPT 46 U/L (16-61); Albumin, Serum 4.1 g/dL (3.2-5.0); Alkaline Phosphatase 63 U/L (45-117); Anion Gap 6 (5-15); BUN 32 mg/dL (7-18); BUN/Creat Ratio 21.2 RATIO (10-20); Calcium,Total 9.5 mg/dL (8.5-10.1); Chloride 108 mmol/L (98-107); Creatinine, Serum 1.51 mg/dL (0.70-1.30); EST Glomerular Filtration Rate 48 mL/min (>60); Est Glom Filt Rate - Afr Amer 58 mL/min (>60); Globulin 3.5 g/dL (2.2-4.2); Glucose 141 mg/dL (74-106); Potassium 4.6 mmol/L (3.5-5.1); Protein, Total 7.6 g/dL (6.4-8.2); Sodium Level 142 mmol/L (136-145); Thyroid Stim Hormone (TSH) 1.37 uIU/mL (0.358-3.74); Uric Acid 9.4 mg/dL (3.5-7.2)
[2021-10-08 18:00] LABS: Vitamin D,25 Hydroxy 43.6 ng/mL
== END | disposition home or self-care (01) ==
LOC: POLAB3 13:02
PROVIDERS: PCP Family Medicine Geriatric Medicine; Visit Provider Family Medicine Geriatric Medicine
DX: E11.9 Type 2 diabetes mellitus without complications (principal); E55.9 Vitamin D deficiency, unspecified; I10 Essential (primary) hypertension; M10.9 Gout, unspecified
CPT/HCPCS: 36415; 80053; 82306; 84443; 84550; 85025

== ENCOUNTER → 2022-03-25 | Outpatient (CLI) | payer MEDICARE, OTHER, SELFPAY ==
[2017-09-22 14:17] VITALS: BMI 37.5
[2022-03-25 17:20] LABS: Protein, Urine (Random) 11.5 mg/dL (<11.9); Protein:Creat Ratio 88 mg/g CRE (0-200)
[2022-03-25 17:23] LABS: Albumin, Serum 3.7 g/dL (3.2-5.0); BUN 28 mg/dL (7-18); Calcium,Total 9.5 mg/dL (8.5-10.1); Chloride 106 mmol/L (98-107); Creatinine, Serum 1.47 mg/dL (0.70-1.30); EST Glomerular Filtration Rate 50 mL/min (>60); Est Glom Filt Rate - Afr Amer 60 mL/min (>60); Glucose 196 mg/dL (74-106); Phosphorus 2.9 mg/dL (2.5-4.9); Potassium 4.7 mmol/L (3.5-5.1); Sodium Level 139 mmol/L (136-145)
== END | disposition home or self-care (01) ==
LOC: POLAB3 13:09
PROVIDERS: PCP Family Medicine Geriatric Medicine; Visit Provider Internal Medicine Nephrology
DX: E11.22 Type 2 diabetes mellitus with diabetic chronic kidney disease (principal); N18.31 Chronic kidney disease, stage 3a
CPT/HCPCS: 36415; 80069; 82570; 84156

== ENCOUNTER → 2022-04-15 | Outpatient (CLI) | payer MEDICARE, OTHER, SELFPAY ==
[2017-09-22 14:17] VITALS: BMI 37.5
[2022-04-15 16:58] LABS: Absolute Lymphocyte Count 1.33 X10^3/uL (0.83-4.51); Basophil# 0.05 X10^3/uL; Basophil% 0.7 % (0-1); Eosinophil# 0.19 X10^3/uL; Eosinophils% 2.6 % (0-5); Hematocrit 47.2 % (40-54); Hemoglobin 15.3 g/dL (13.0-16.5); Lymphocyte # 1.33 X10^3/ul (0.83-4.51); Lymphocyte % 18.3 % (19-41); Mean Corp Hgb Conc 32.4 g/dL (32-36); Mean Corpuscular Hgb 29.2 pg (27.0-32.0); Mean Corpuscular Volume 90.1 fL (80-94); Mean Platelet Vol. 11.1 fl (6.2-12.0); Monocyte# 0.65 X10^3/uL; NRBC Flagged by Analyzer 0 % (0-5); Neutrophil # 5.02 X10^3/uL (2.7-7.7); Neutrophil % 69.1 % (47-70); Platelet Count 193 K/mm3 (150-450); RBC Distribution Width CV 13.8 % (11.6-14.6); RBC Distribution Width SD 45.5 fl (35.1-43.9); Red Blood Count 5.24 M/mm3 (4.6-6.2); White Blood Count 7.3 K/mm3 (4.4-11.0)
[2022-04-15 17:30] LABS: Vitamin D,25 Hydroxy 38.8 ng/mL
[2022-04-15 17:37] LABS: ALB/GLOB Ratio 1.1 RATIO (0.9-2.4); AST(SGOT) 22 U/L (15-37); Alanine Aminotransfer ALT/SGPT 49 U/L (16-61); Albumin, Serum 3.8 g/dL (3.2-5.0); Alkaline Phosphatase 62 U/L (45-117); Anion Gap 7 (5-15); BUN 27 mg/dL (7-18); BUN/Creat Ratio 19.6 RATIO (10-20); Calcium,Total 9.2 mg/dL (8.5-10.1); Chloride 104 mmol/L (98-107); Creatinine, Serum 1.38 mg/dL (0.70-1.30); EST Glomerular Filtration Rate 53 mL/min (>60); Est Glom Filt Rate - Afr Amer 64 mL/min (>60); Globulin 3.4 g/dL (2.2-4.2); Glucose 165 mg/dL (74-106); Potassium 4.2 mmol/L (3.5-5.1); Protein, Total 7.2 g/dL (6.4-8.2); Sodium Level 140 mmol/L (136-145); Thyroid Stim Hormone (TSH) 2.47 uIU/mL (0.358-3.74)
== END | disposition home or self-care (01) ==
LOC: POLAB3 13:06
PROVIDERS: PCP Family Medicine Geriatric Medicine; Visit Provider Family Medicine Geriatric Medicine
DX: I10 Essential (primary) hypertension (principal); E11.9 Type 2 diabetes mellitus without complications; E55.9 Vitamin D deficiency, unspecified
CPT/HCPCS: 36415; 80053; 82306; 84443; 85025

== ENCOUNTER → 2022-05-11 | Outpatient (CLI) | payer MEDICARE, OTHER, SELFPAY ==
[2017-09-22 14:17] VITALS: BMI 37.5
[2022-05-11 13:24] LABS: PSA,Total - Annual Screen 3.71 ng/mL (0.00-4.00)
== END | disposition home or self-care (01) ==
PROVIDERS: PCP Family Medicine Geriatric Medicine
DX: Z12.5 Encounter for screening for malignant neoplasm of prostate (principal)
CPT/HCPCS: 36415; 84153; G0103

== ENCOUNTER 2022-08-08 18:24 | Emergency (ER) | payer MEDICARE, OTHER, SELFPAY ==
[2017-09-22 14:17] VITALS: BMI 37.5
[2022-08-08 18:25] VITALS: BP 145/63; PULSE 63; RESP 18; TEMP 35.6; O2SAT 97; BMI 33.3
[2022-08-08] MEDS: Cephalexin 250 MG Capsule 500 MG PO (19:08)
--- NOTE | 2022-08-08 20:22 | EX.ED.DYSGE1 ---
HPI History of Present Illness Chief Complaint: Itching Narrative Narrative: 76-year-old male presenting with a rash. He states initially he noticed some small areas on the right thigh which he did scratch at and they became a little bit worse for short time and then resolved on their own. He then states he had a similar thing happen on his arm and he had 3 small punctate areas which seem to heal without any problem. He developed an area similar to this on the right lateral arm near the bicep and he has been rubbing at this and scratching at it. He states he put alcohol over it to help stop the itching. He reports that he has been running under very hot water and that helps the itching as well. He states that ice does also help. Is not particularly painful. He developed a similar area on the right arm which is about 3 cm. He is concerned for possible infection. He has not any systemic signs or symptoms. No fevers or chills. No nausea or vomiting. He has felt well. [facility] Medical History Angina pectoris Atherosclerotic heart disease of [place] coronary artery without angina pectoris Cardiac murmur Essential hypertension History of kidney stones Presence of stent in coronary artery (~09/22/17) Pure hypercholesterolemia Type 2 diabetes mellitus Home Medications atorvastatin 40 mg tablet 40 mg PO QHS cholesterol 07/28/15 [History Last Taken 08/30/19] glimepiride 4 mg tablet 4 mg PO BIDCM sugar 07/28/15 [History Last Taken 08/31/19] losartan 100 mg-hydrochlorothiazide 12.5 mg tablet 1 tab PO DAILY BP 07/28/15 [History Last Taken 08/31/19] nitroglycerin 0.4 mg sublingual tablet 0.4 mg sublingual Q5M PRN Cardiac/Chest Pain #20 tabs 09/23/17 [Rx Last Taken Unknown] teazbnbg-mme-fcbgy acid 300 mcg-lycopene 600 mcg-lutein 300 mcg tablet 1 tab PO DAILY supplement 01/10/18 [History Last Taken 08/31/19] aspirin 81 mg tablet,delayed release (Adult Aspirin Regimen) 81 mg PO DAILY 01/18/18 [History Last Taken 08/31/19] levothyroxine 50 mcg tablet 50 mcg PO DAILY thyroid 08/31/19 [History Last Taken 08/31/19] metformin 1,000 mg tablet 1,000 mg PO BID 08/31/19 [History Last Taken 08/31/19] clopidogrel 75 mg tablet See Rx Instructions .Route .COMPLEX #90 tabs 06/23/22 [Rx Last Taken Unknown] metoprolol tartrate 50 mg tablet See Rx Instructions .Route .COMPLEX #180 tabs 06/23/22 [Rx Last Taken Unknown] cephalexin 500 mg capsule 500 mg PO Q6 #40 CAPSULES 08/08/22 [Rx Last Taken Unknown] pramoxine-zinc acetate 1 %-0.1 % lotion 1 applic topical TID PRN skin irritation #177 mL 08/08/22 [Rx Last Taken Unknown] Allergy/AdvReac Type Severity Reaction Status Date / Time morphine Allergy burning in Verified 08/08/22 18:26 chest tetracycline Allergy Nausea/Vom/Diarrhea-almost Verified 08/08/22 18:26 fainted Family History Mother Diabetes Surgical History History of cholecystectomy History of ureter stent (~01/05/18) Presence of coronary angioplasty implant and graft (~09/22/17) Social History Smoking Status: Never smoker how long ago did patient quit smokin years ago alcohol intake: current alcohol intake frequency: holidays/special occasions only substance use type: does not use caffeine: Yes Type: coffee Number of servings: 1 what type of physical activity do you participate in: none seatbelt use: always do you feel safe at home: Yes ROS ROS ED Constitutional Constitutional ED: Denies chills or fever(s) Eyes Eyes: Denies change in vision ENT ENT ED: Denies rhinorrhea or sore throat Cardiovascular Cardiovascular: Denies chest pain or palpitations Respiratory/Chest Respiratory/Chest: Denies cough or dyspnea Gastrointestinal Gastrointestinal: Denies abdominal pain Genitourinary Genitourinary ED: Denies dysuria or hematuria Integumentary Reports rash Neurologic Neurologic: Denies headache(s) or paresthesias EXAM Physical Exam Const Vital Signs: 08/08/22 18:25 Temperature 96.1 F L Temperature Source Temporal Pulse Rate 63 Respiratory Rate 18 Blood Pressure 145/63 H Blood Pressure Mean 90 Pulse Ox 97 Oxygen Delivery Method Room Air Positive well nourished General Appearance ED: NAD HEENT Reports moist mucous membranes Eyes PERRL Resp normal respiratory effort Effort and Inspection: Negative for retractions Cardio regular rate and regular rhythm Neuro oriented x3 and CN's II-XII intact bilaterally Skin Skin Narrative: On the left upper arm there is a small focal area of scabbing and thickened skin. There is surrounding erythema and very mild warmth. There is no vesicles. Skin is not sloughing. Its not tender. There is no fluctuant areas. This does extend over most of the lateral aspect of the left arm. On the left forearm there are 3 small punctate areas of scabbing which appear to be noninfected and are nontender to palpation. There is a similar area on the right shoulder as there is on the left only it seems to be earlier and there is no surrounding erythema. T skin appears to be thickened. Its not tender. There is no fluctuance. MDM MDM MDM Narrative Medical decision making narrative: Patient presenting for concern of cellulitis. I do think that the left upper arm appears to be an early cellulitis. He is visibly scratching at both of his upper arms. I did try to agency legal counsel him that he should probably stop scratching at it because its causing his erythema to worsen. At this point his daughter became angry and stated that he is not scratching at it, but I can visibly see him doing it actively the whole time in the room. I counseled on this likely early cellulitis on the left upper arm and that we should start antibiotics. I will give him a prescription for some anti-itching cream to place on his arms. He states he tried calamine lotion and that did not help. He has tried oral Benadryl and that did not help. I did agency legal counsel him as long as the water was not scalding hot running water on this would be okay if that controls the itching and would keep him from scratching it. He did reported that ice also helps and I recommended ice packs. Patient was started on Keflex for home. He was given follow-up with dermatology. Return precautions were discussed. Impression: 1. Cellulitis Discharge Plan Triage Chief Complaint: Itching ED Provider: Chirag Rodríguez Dx/Rx/DC Orders Instructions: ED Cellulitis Prescriptions: New pramoxine-zinc acetate 1-0.1 % lotion 1 applic topical TID PRN (Reason: skin irritation) Qty: 177 0RF cephalexin 500 mg capsule 500 mg PO Q6 Qty: 40 0RF No Action aspirin [Adult Aspirin Regimen] 81 mg tablet,delayed release (DR/EC) 81 mg PO DAILY atorvastatin 40 MG tablet 40 mg PO QHS Label Comments: cholesterol glimepiride 4 MG tablet 4 mg PO BIDCM Label Comments: sugar Pt takes with breakfast and dinner. losartan-hydrochlorothiazide 1 TAB tablet 1 tab PO DAILY Label Comments: BP nitroglycerin 0.4 MG tablet 0.4 mg SUBLINGUAL Q5M PRN (Reason: Cardiac/Chest Pain) Qty: 20 0RF pkqjdvad-fxz-TD-lycopen-lutein 1 EACH tablet 1 tab PO DAILY levothyroxine 50 MCG tablet 50 mcg PO DAILY metformin 1,000 MG tablet 1,000 mg PO BID clopidogrel 75 mg tablet See Rx Instructions .ROUTE .COMPLEX Qty: 90 4RF Dose Instruction: TAKE 1 TABLET DAILY Rx Instructions: TAKE 1 TABLET DAILY metoprolol tartrate 50 mg tablet See Rx Instructions .ROUTE .COMPLEX Qty: 180 4RF Dose Instruction: TAKE 1 TABLET TWICE A DAY Rx Instructions: TAKE 1 TABLET TWICE A DAY Primary Care Provider: Max Nunez Chi Referrals: Ronak Posey MD [Med Staff - Practice Specialist] - As soon as possible Max Nunez Chi, MD [Primary Care Provider] - Disposition Disposition: Home, Self Care Discharge Date/Time: 08/08/22 19:09
== END 2022-08-08 19:09 | disposition home or self-care (01) ==
PROVIDERS: Emergency Provider Student in an Organized Health Care Education/Training Program; PCP Family Medicine Geriatric Medicine; Visit Provider Student in an Organized Health Care Education/Training Program
DX: L03.114 Cellulitis of left upper limb (principal); I25.10 Atherosclerotic heart disease of native coronary artery without angina pectoris; Z95.5 Presence of coronary angioplasty implant and graft
CPT/HCPCS: 99283

== ENCOUNTER → 2022-10-12 | Outpatient (CLI) | payer MEDICARE, OTHER, SELFPAY ==
[2017-09-22 14:17] VITALS: BMI 37.5
[2022-10-12 17:10] LABS: Absolute Lymphocyte Count 1.67 X10^3/uL (0.83-4.51); Absolute Neutrophil Count 6.7 X10^3/uL (2.0-7.7); Basophil# 0.03 X10^3/uL; Basophil% 0.3 % (0-1); Eosinophil# 0.15 X10^3/uL; Eosinophils% 1.6 % (0-5); Hemoglobin 13.4 g/dL (13.0-16.5); Lymphocyte # 1.67 X10^3/ul (0.83-4.51); Lymphocyte % 17.7 % (19-41); Mean Corp Hgb Conc 31.9 g/dL (32-36); Mean Corpuscular Hgb 31.5 pg (27.0-32.0); Mean Corpuscular Volume 98.6 fL (80-94); Mean Platelet Vol. 12.3 fl (6.2-12.0); Monocyte# 0.88 X10^3/uL; Monocyte% 9.3 % (0-10); NRBC Flagged by Analyzer 0 % (0-5); Neutrophil # 6.65 X10^3/uL (2.7-7.7); Neutrophil % 70.7 % (47-70); Platelet Count 247 K/mm3 (150-450); RBC Distribution Width CV 13.1 % (11.6-14.6); RBC Distribution Width SD 47.1 fl (35.1-43.9); Red Blood Count 4.26 M/mm3 (4.6-6.2); White Blood Count 9.4 K/mm3 (4.4-11.0)
[2022-10-12 18:02] LABS: Vitamin D,25 Hydroxy 33.4 ng/mL
[2022-10-12 18:10] LABS: ALB/GLOB Ratio 1.1 RATIO (0.9-2.4); AST(SGOT) 16 U/L (15-37); Alanine Aminotransfer ALT/SGPT 25 U/L (16-61); Albumin, Serum 3.8 g/dL (3.2-5.0); Alkaline Phosphatase 108 U/L (45-117); Anion Gap 9 (5-15); BUN 21 mg/dL (7-18); BUN/Creat Ratio 32.8 RATIO (10-20); Calcium,Total 8.7 mg/dL (8.5-10.1); Chloride 109 mmol/L (98-107); Creatinine, Serum 0.64 mg/dL (0.70-1.30); EST Glomerular Filtration Rate 129 mL/min (>60); Est Glom Filt Rate - Afr Amer 156 mL/min (>60); Globulin 3.4 g/dL (2.2-4.2); Glucose 118 mg/dL (74-106); Potassium 3.8 mmol/L (3.5-5.1); Protein, Total 7.2 g/dL (6.4-8.2); Sodium Level 142 mmol/L (136-145); Thyroid Stim Hormone (TSH) 0.58 uIU/mL (0.358-3.74)
== END | disposition home or self-care (01) ==
LOC: POLAB3 09:24
PROVIDERS: PCP Family Medicine Geriatric Medicine; Visit Provider Family Medicine Geriatric Medicine
DX: E11.65 Type 2 diabetes mellitus with hyperglycemia (principal); I10 Essential (primary) hypertension; E55.9 Vitamin D deficiency, unspecified
CPT/HCPCS: 36415; 80053; 82306; 84443; 85025

== ENCOUNTER → 2023-04-19 | Outpatient (CLI) | payer MEDICARE, OTHER, SELFPAY ==
[2017-09-22 14:17] VITALS: BMI 37.5
[2023-04-19 17:21] LABS: Absolute Lymphocyte Count 1.38 X10^3/uL (0.83-4.51); Absolute Neutrophil Count 4.2 X10^3/uL (2.0-7.7); Basophil# 0.07 X10^3/uL; Basophil% 1.1 % (0-1); Eosinophil# 0.21 X10^3/uL; Eosinophils% 3.3 % (0-5); Hematocrit 47.8 % (40-54); Hemoglobin 15.6 g/dL (13.0-16.5); Lymphocyte # 1.38 X10^3/ul (0.83-4.51); Lymphocyte % 21.4 % (19-41); Mean Corp Hgb Conc 32.6 g/dL (32-36); Mean Corpuscular Hgb 29.2 pg (27.0-32.0); Mean Corpuscular Volume 89.5 fL (80-94); Mean Platelet Vol. 11.5 fl (6.2-12.0); Monocyte# 0.59 X10^3/uL; Monocyte% 9.1 % (0-10); NRBC Flagged by Analyzer 0 % (0-5); Neutrophil % 64.9 % (47-70); Platelet Count 156 K/mm3 (150-450); RBC Distribution Width CV 13.9 % (11.6-14.6); RBC Distribution Width SD 45.3 fl (35.1-43.9); Red Blood Count 5.34 M/mm3 (4.6-6.2); White Blood Count 6.5 K/mm3 (4.4-11.0)
[2023-04-19 17:48] LABS: ALB/GLOB Ratio 1.1 RATIO (0.9-2.4); AST(SGOT) 25 U/L (15-37); Alanine Aminotransfer ALT/SGPT 46 U/L (16-61); Albumin, Serum 3.9 g/dL (3.2-5.0); Alkaline Phosphatase 67 U/L (45-117); Anion Gap 10 (5-15); BUN 21 mg/dL (7-18); BUN/Creat Ratio 14.4 RATIO (10-20); Chloride 104 mmol/L (98-107); Creatinine, Serum 1.46 mg/dL (0.70-1.30); EST Glomerular Filtration Rate 50 mL/min (>60); Est Glom Filt Rate - Afr Amer 60 mL/min (>60); Globulin 3.5 g/dL (2.2-4.2); Glucose 187 mg/dL (74-106); PSA,Total - Annual Screen 2.64 ng/mL (0.00-4.00); Potassium 3.5 mmol/L (3.5-5.1); Protein, Total 7.4 g/dL (6.4-8.2); Sodium Level 141 mmol/L (136-145)
== END | disposition home or self-care (01) ==
LOC: POLAB3 13:57
PROVIDERS: PCP Family Medicine Geriatric Medicine; Visit Provider Family Medicine Geriatric Medicine
DX: E11.65 Type 2 diabetes mellitus with hyperglycemia (principal); E55.9 Vitamin D deficiency, unspecified; Z12.5 Encounter for screening for malignant neoplasm of prostate
CPT/HCPCS: 36415; 80053; 82306; 84153; 84443; 85025; G0103

== ENCOUNTER → 2023-10-12 | Outpatient (CLI) | payer MEDICARE, OTHER, SELFPAY ==
[2017-09-22 14:17] VITALS: BMI 37.5
[2023-10-12 14:33] LABS: Absolute Neutrophil Count 5.1 X10^3/uL (2.0-7.7); Basophil% 1.3 % (0-1); Eosinophil# 0.47 X10^3/uL; Eosinophils% 5.9 % (0-5); Hematocrit 47.7 % (40-54); Hemoglobin 15.2 g/dL (13.0-16.5); Lymphocyte % 16.4 % (19-41); Mean Corp Hgb Conc 31.9 g/dL (32-36); Mean Corpuscular Hgb 28.8 pg (27.0-32.0); Mean Corpuscular Volume 90.5 fL (80-94); Mean Platelet Vol. 11.1 fl (6.2-12.0); Monocyte# 0.95 X10^3/uL; NRBC Flagged by Analyzer 0 % (0-5); Neutrophil # 5.06 X10^3/uL (2.7-7.7); Platelet Count 164 K/mm3 (150-450); RBC Distribution Width SD 46.5 fl (35.1-43.9); Red Blood Count 5.27 M/mm3 (4.6-6.2); White Blood Count 7.9 K/mm3 (4.4-11.0)
[2023-10-12 15:14] LABS: Vitamin D,25 Hydroxy 42.5 ng/mL
[2023-10-12 15:23] LABS: ALB/GLOB Ratio 0.9 RATIO (0.9-2.4); AST(SGOT) 21 U/L (15-37); Alanine Aminotransfer ALT/SGPT 36 U/L (16-61); Albumin, Serum 3.7 g/dL (3.2-5.0); Alkaline Phosphatase 69 U/L (45-117); Anion Gap 7 (5-15); BUN 28 mg/dL (7-18); BUN/Creat Ratio 20.1 RATIO (10-20); Calcium,Total 9.5 mg/dL (8.5-10.1); Chloride 107 mmol/L (98-107); Creatinine, Serum 1.39 mg/dL (0.70-1.30); EST Glomerular Filtration Rate 53 mL/min (>60); Est Glom Filt Rate - Afr Amer 64 mL/min (>60); Glucose 146 mg/dL (74-106); Potassium 4.6 mmol/L (3.5-5.1); Protein, Total 7.7 g/dL (6.4-8.2); Sodium Level 141 mmol/L (136-145); Thyroid Stim Hormone (TSH) 1.55 uIU/mL (0.358-3.74)
== END | disposition home or self-care (01) ==
LOC: LAB 14:09
PROVIDERS: PCP Family Medicine Geriatric Medicine; Referring Provider Family Medicine Geriatric Medicine; Visit Provider Family Medicine Geriatric Medicine
DX: I10 Essential (primary) hypertension (principal); E11.65 Type 2 diabetes mellitus with hyperglycemia; E55.9 Vitamin D deficiency, unspecified
CPT/HCPCS: 36415; 80053; 82306; 84443; 85025

== ENCOUNTER → 2024-04-25 | Outpatient (CLI) | payer MEDICARE, OTHER, SELFPAY ==
[2017-09-22 14:17] VITALS: BMI 37.5
[2024-04-25 13:03] LABS: Absolute Lymphocyte Count 1.71 X10^3/uL (0.83-4.51); Absolute Neutrophil Count 4.7 X10^3/uL (2.0-7.7); Basophil# 0.07 X10^3/uL; Basophil% 0.9 % (0-1); Eosinophil# 0.26 X10^3/uL; Eosinophils% 3.4 % (0-5); Hematocrit 46.5 % (40-54); Hemoglobin 15.3 g/dL (13.0-16.5); Lymphocyte # 1.71 X10^3/ul (0.83-4.51); Lymphocyte % 22.5 % (19-41); Mean Corp Hgb Conc 32.9 g/dL (32-36); Mean Corpuscular Hgb 29.4 pg (27.0-32.0); Mean Corpuscular Volume 89.3 fL (80-94); Monocyte# 0.82 X10^3/uL; Monocyte% 10.8 % (0-10); NRBC Flagged by Analyzer 0 % (0-5); Neutrophil # 4.71 X10^3/uL (2.7-7.7); Neutrophil % 62.1 % (47-70); Platelet Count 158 K/mm3 (150-450); RBC Distribution Width CV 13.8 % (11.6-14.6); Red Blood Count 5.21 M/mm3 (4.6-6.2); White Blood Count 7.6 K/mm3 (4.4-11.0)
[2024-04-25 13:31] LABS: Vitamin D,25 Hydroxy 41.6 ng/mL
[2024-04-25 13:37] LABS: ALB/GLOB Ratio 1.2 RATIO (0.9-2.4); AST(SGOT) 18 U/L (15-37); Alanine Aminotransfer ALT/SGPT 39 U/L (16-61); Albumin, Serum 3.9 g/dL (3.2-5.0); Alkaline Phosphatase 69 U/L (45-117); Anion Gap 4 (5-15); BUN 28 mg/dL (7-18); BUN/Creat Ratio 21.4 RATIO (10-20); Calcium,Total 9.4 mg/dL (8.5-10.1); Chloride 110 mmol/L (98-107); Creatinine, Serum 1.31 mg/dL (0.70-1.30); EST Glomerular Filtration Rate 56 mL/min (>60); Est Glom Filt Rate - Afr Amer 68 mL/min (>60); Globulin 3.3 g/dL (2.2-4.2); Glucose 198 mg/dL (74-106); Potassium 4.6 mmol/L (3.5-5.1); Protein, Total 7.2 g/dL (6.4-8.2); Sodium Level 141 mmol/L (136-145)
== END | disposition home or self-care (01) ==
LOC: POLAB3 12:53
PROVIDERS: PCP Family Medicine Geriatric Medicine; Visit Provider Family Medicine Geriatric Medicine
DX: I10 Essential (primary) hypertension (principal); E11.65 Type 2 diabetes mellitus with hyperglycemia; E55.9 Vitamin D deficiency, unspecified
CPT/HCPCS: 36415; 80053; 82306; 84443; 85025

== ENCOUNTER → 2024-10-24 | Outpatient (CLI) | payer MEDICARE, OTHER, SELFPAY ==
[2017-09-22 14:17] VITALS: BMI 37.5
[2024-10-24 14:08] LABS: Absolute Lymphocyte Count 1.42 X10^3/uL (0.83-4.51); Absolute Neutrophil Count 4.8 X10^3/uL (2.0-7.7); Basophil# 0.07 X10^3/uL; Basophil% 0.9 % (0-1); Eosinophil# 0.23 X10^3/uL; Eosinophils% 3.1 % (0-5); Hematocrit 48.1 % (40-54); Hemoglobin 16.2 g/dL (13.0-16.5); Lymphocyte # 1.42 X10^3/ul (0.83-4.51); Lymphocyte % 19.3 % (19-41); Mean Corp Hgb Conc 33.7 g/dL (32-36); Mean Corpuscular Hgb 30.1 pg (27.0-32.0); Mean Corpuscular Volume 89.4 fL (80-94); Mean Platelet Vol. 11.2 fl (6.2-12.0); Monocyte# 0.82 X10^3/uL; Monocyte% 11.1 % (0-10); NRBC Flagged by Analyzer 0 % (0-5); Neutrophil # 4.81 X10^3/uL (2.7-7.7); Neutrophil % 65.3 % (47-70); Platelet Count 141 K/mm3 (150-450); RBC Distribution Width CV 14.3 % (11.6-14.6); RBC Distribution Width SD 46.3 fl (35.1-43.9); Red Blood Count 5.38 M/mm3 (4.6-6.2); White Blood Count 7.4 K/mm3 (4.4-11.0)
[2024-10-24 15:21] LABS: ALB/GLOB Ratio 1.7 RATIO (0.9-2.4); AST(SGOT) 29 U/L (<=37); Alanine Aminotransfer ALT/SGPT 36 U/L (<=46); Albumin, Serum 4.6 g/dL (3.4-4.8); Alkaline Phosphatase 70 U/L (40-129); Anion Gap 12 (5-15); BUN 29 mg/dL (4-19); BUN/Creat Ratio 21.5 RATIO (10-20); Calcium,Total 10.1 mg/dL (7.6-11.0); Carbon Dioxide 25.1 mmol/L (21.0-32.0); Chloride 106 mmol/L (98-108); Creatinine, Serum 1.35 mg/dL (0.70-1.20); EST Glomerular Filtration Rate 54 (>60); Globulin 2.7 g/dL (2.2-4.2); Glucose 164 mg/dL (70-99); Potassium 4.7 mmol/L (3.3-5.1); Protein, Total 7.3 g/dL (5.9-8.4); Sodium Level 143 mmol/L (133-145); Total Bilirubin 1.49 mg/dL (0.00-1.30); Vitamin D,25 Hydroxy 40.6 ng/mL (30-100)
== END | disposition home or self-care (01) ==
LOC: LAB 13:28
PROVIDERS: PCP Family Medicine Geriatric Medicine; Referring Provider Family Medicine Geriatric Medicine; Visit Provider Family Medicine Geriatric Medicine
DX: I10 Essential (primary) hypertension (principal); E11.65 Type 2 diabetes mellitus with hyperglycemia; E55.9 Vitamin D deficiency, unspecified
CPT/HCPCS: 36415; 80053; 82306; 84443; 85025

== ENCOUNTER → 2025-04-26 | Outpatient (CLI) | payer MEDICARE, OTHER, SELFPAY ==
[2017-09-22 14:17] VITALS: BMI 37.5
[2025-04-26 13:49] LABS: Hematocrit 48.2 % (40-54); Hemoglobin 15.6 g/dL (13.0-16.5); Immature Granulocytes Count 0.020 X10^3/uL (0.0-0.0); Mean Corp Hgb Conc 32.4 g/dL (32-36); Mean Corpuscular Volume 90.6 fL (80-94); Mean Platelet Vol. 11.6 fl (6.2-12.0); NRBC Flagged by Analyzer 0 % (0-5); Platelet Count 139 K/mm3 (150-450); RBC Distribution Width CV 14.2 % (11.6-14.6); RBC Distribution Width SD 46.8 fl (35.1-43.9); Red Blood Count 5.32 M/mm3 (4.6-6.2); White Blood Count 7.3 K/mm3 (4.4-11.0)
[2025-04-26 14:50] LABS: AST(SGOT) 31 U/L (<=37); Alanine Aminotransfer ALT/SGPT 46 U/L (<=46); Albumin, Serum 4.3 g/dL (3.4-4.8); Alkaline Phosphatase 71 U/L (40-129); Anion Gap 11 (5-15); BUN 21 mg/dL (4-19); BUN/Creat Ratio 17.7 RATIO (10-20); Calcium,Total 9.7 mg/dL (7.6-11.0); Carbon Dioxide 26.8 mmol/L (21.0-32.0); Chloride 106 mmol/L (98-108); Globulin 2.6 g/dL (2.2-4.2); Glucose 197 mg/dL (70-99); Potassium 4.9 mmol/L (3.3-5.1); Vitamin D,25 Hydroxy 34.2 ng/mL (30-100)
[2025-04-26 15:31] LABS: Creatinine, Urine (random) 139.00 mg/dL (39.00-259.00); Microalbumin,Random Urine 65.3 mg/L (<20 mg/L)
--- OUTSIDE RECORDS SUMMARY | 2025-04-26 17:35 | XMS RPT_ITS | CCD ---
Author Organization [facility] Care Team Providers Care Customer Energy Specialist Name Role Phone Dr. Max Nunez Chi Primary Care Provider Enrique, Dr. Max Man Referring Provider Dr. Tod Stallworth Attending Provider Enrique SAMSON, Dr. Max Man Primary Care Provider [phone] Enrique SAMSON, Dr. Max Man Attending Provider Enrique SAMSON, Dr. Max Man Referring Provider Enrique, Max Chi Primary Care Unavailable Shira Hanson Attending Unavail able Enrique, Max Chi Referring Unavailable Enrique, Max Chi Referring Unavailable Enrique, Max Chi Attending Unavailable Enrique, Max Chi Primary Care Unavailable Enrique, Max Chi Attending Unavailable Enrique, Max Chi Primary Care Unavailable Enrique, Max Chi Referring Unavailable Rober Hunt Attending Unavailable Enrique, Max Chi Primary Care Unavailable Allergies Allergy Classification Reported Allergen(s) Allergy Type Date of Onset Reaction(s) Facility (5 sources) Morphine Drug Allergy 1 burning in chest [facility] (5 sources) Tetracycline Drug Allergy 1 Nausea/Vom/Diar izabel-almost fainted [facility] (1 source) Morphine Drug Allergy 5 [facility] (1 source) Tetracycline Drug Allergy 5 [facility] Medications Current Medications Medication Drug Class(es) Dates Sig (Normalized) Sig (Original) aspirin 81 mg delayed release oral tablet (15 sources) Platelet Aggregation Inhibitor, Nonsteroidal Anti-inflammatory Drug Start: 01-18-2018 take 1 tablet by mouth once daily Aspirin (Adult Aspirin Regimen) 81 mg tablet,delayed release (DR/EC) Active 81 mg PO DAILY January 18, 2018 12:00am Start: 09-29-2017 End: 01-10-2018 take 1 tablet by mouth once daily Aspirin 81 mg tablet,chewable Discontinued 81 mg PO DAILY@799September 29, 2017 11:31am January 10, 2018 4:56pm Start: 07-28-2015 End: 09-29-2017 take 2 tablets by mouth once daily Aspirin 81 MG tablet,chewable Discontinued 162 mg PO DAILY@799July 28, 2015 1:00am September 29, 2017 11:32am Start: 07-28-2015 End: 09-29-2017 take 162 mg by mouth once daily Aspirin Discontinued 162 MG PO DAILY@799July 28, 2015 1:00am September 29, 2017 11:32am atorvastatin 40 mg oral tablet (5 sources) HMG-CoA Reductase Inhibitor Start: 07-28-2015 take 1 tablet by mouth at bedtime Atorvastatin 40 MG tablet Active 40 mg PO AT BEDTIME July 28, 2015 1:00am clopidogrel 75 mg oral tablet (20 sources) P2Y12 Platelet Inhibitor Start: 08-23-2019 End: 04-25-2024 Clopidogrel 75 mg tablet Active 0 .ROUTE .COMPLEX April 25, 2024 2:32pm TAKE 1 TABLET DAILY Start: 09-29-2017 End: 10-12-2018 take 1 tablet by mouth once daily Clopidogrel (Plavix) 75 mg tablet Discontinued 75 mg PO daily August 01, 2018 10:09am October 12, 2018 1:46pm glimepiride 4 mg oral tablet (6 sources) Sulfonylurea Start: 04-04-2024 take 2 mg by mouth twice daily at mealtime Glimepiride 4 mg tablet Active 2 mg PO TWICE DAILY WITH MEALS April 04, 2024 2:18pm Start: 07-28-2015 End: 04-04-2024 take 1 tablet by mouth twice daily at mealtime Glimepiride 4 MG tablet Discontinued 4 mg PO TWICE DAILY WITH MEALS July 28, 2015 1:00am April 04, 2024 2:18pm hydroCHLOROthiazide 12.5 mg / losartan potassium 100 mg oral tablet (5 sources) Thiazide Diuretic, Angiotensin 2 Receptor Pardeep Start: 07-28-2015 Losartan-Hydrochlorothiazide 1 TAB tablet Active 1 {tbl} PO DAILY July 28, 2015 1:00am Start: 07-28-2015 take 1 tablet by connie th once daily Losartan-Hydrochlorothiazide Active 1 TA BLET PO DAILY July 28, 2015 1:00am levothyroxine sodium 0.05 mg oral tablet (10 sources) l-Thyroxine Start: 08-31-2019 take 1 tablet by mouth once daily Levothyroxine 50 MCG tablet Active 50 ug PO DAILY August 31, 2019 12:00am Start: 09-21-2017 End: 10-12-2018 take 1 tablet by mouth once daily Levothyroxine 25 tablet Discontinued 25 ug PO DAILY September 21, 2017 12:00am October 12, 2018 1:47pm metFORMIN hydrochloride 1000 mg oral tablet (10 sources) Biguanide Start: 08-31-2019 take 1 tablet by mouth twice daily Metformin 1,000 MG tablet Active 1000 mg PO TWICE A DAY August 31, 2019 12:00am Start: 07-28-2015 End: 09-23-2017 take 2 tablets by mouth twice daily Metformin 500 MG tablet Discontinued 1000 mg PO TWICE A DAY July 28, 2015 1:00am September 23, 2017 10:25am Start: 07-28-2015 End: 09-23-2017 take 1000 mg by mouth twice daily Metformin Discontinued 1000 MG PO TWICE A DAY July 28, 2015 1:00am September 23, 2017 10:25am metoprolol tartrate 50 mg oral tablet (20 sources) beta-Adrenergic Pardeep Start: 05-19-2023 End: 07-13-2024 take 1 tablet by mouth twice daily Metoprolol Tartrate 50 mg tablet Active 50 mg PO TWICE A DAY 180 July 13, 2024 5:49pm Start: 04-02-2023 End: 05-19-2023 take 1 tablet by mouth once daily Metoprolol Tartrate 50 mg tablet Discontinued 50 mg PO DAILY 90 May 18, 2023 4:56pm May 19, 2023 10:51am Start: 10-11-2017 End: 04-02-2023 Metoprolol Tartrate 50 mg ta blet Discontinued 0 .ROUTE .COMPLEX 180 June 23, 2022 5:54pm April 02, 2023 2:54pm TAKE 1 TABLET TWICE A DAY Start: 10-08-2017 End: 10-11-2017 take 2 tablets by mouth twice daily Metoprolol Tartrate 25 mg tablet Discontinued 50 mg PO TWICE A DAY 180 October 08, 2017 9:03am October 11, 2017 10:17am Start: 10-08-2017 End: 10-11-2017 take 50 mg by mouth twice daily Metoprolol Tartrate Di scontinued 50 MG PO TWICE A DAY 180 October 08, 2017 9:03am October 11, 2017 10:17am Start: 09-23-2017 End: 10-08-2017 take 1 tablet by mouth twice daily Metoprolol Tartrate 25 mg tablet Discontinued 25 mg PO TWICE A DAY 180 September 29, 2017 11:49am October 08, 2017 9:03am Cpvarwux-Jdg-Ks-Lycopen-Lute in (4 sources) Start: 01-10-2018 take 1 tablet by mouth once daily Jhdpujrl-Frx-Nr-Lycopen-Lutein Active 1 TABLET PO DAILY January 10, 2018 5:26pm Start: 01-10-2018 take 1 tablet by connie th once daily Ezhbzglf-Uwo-Lj-Lycopen-Lutein Active 1 TABLET PO DAILY January 10, 2018 12:00am Start: 01-10-2018 take 1 tablet by connie th once daily Diqmevdx-Erd-Yk-Lycopen-Lutein Active 1 TABLET PO DAILY January 09, 2018 11:00pm Zx-Tob-Wqvmp-H1-Oxqpvry-Cdov in 1 EACH tablet (1 source) Start: 01-10-2018 take 1 tablet by mouth once daily Bb-Bab-Maaii-I2-Birrldz-Zbfwvb 1 EACH tablet Active 1 {tbl} PO DAILY January 10, 2018 12:00am nitroglycerin 0.4 mg subling ual tablet (7 sources) Nitra te Vasod ilato r Start: 09-23-2017 End: 04-02-2023 Nitroglycerin 0.4 mg tablet, sublingual Active 0.4 mg SL Q5M as needed for Cardiac/Chest Pain April 02, 2023 3:09pm Start: 09-23-2017 Nitroglycerin Active 0.4 MG SL Q5M September 23, 2017 12:00am Completed/Discontinued Medications Medication Drug Class(es) Dates Sig (Normalized) Sig (Original) acetaminophen 325 mg / HYDROcodone bitartrate 5 mg oral tablet (5 sources) Opioid Agonist Start: 12-23-2017 End: 01-10-2018 Hydrocodone-Acetami nophen 1 EACH tablet Discontinued 1 - 2 NMA PO 4 TIMES DAILY NEEDED as needed for Pain 10 10December 23, 2017 12:00am January 10, 2018 4:57pm Start: 12-23-2017 End: 01-10-2018 Hydrocodone-Acetaminophen Di scontinued 1 - 2 EACH PO 4 TIMES DAILY NEEDED 20 December 23, 2017 12:00am January 10, 2018 4:57pm cephalexin 500 mg oral capsule (3 sources) Cephalosporin Antibacterial Start: 08-08-2022 End: 04-02-2023 take 1 capsule by mouth every six hours Cephalexin 500 mg capsule Discontinued 500 mg PO EVERY 6 HOURS August 08, 2022 12:00am April 02, 2023 2:53pm ciprofloxacin 500 mg oral tablet (15 sources) Quinolone Antimicrobial Start: 08-31-2019 End: 11-23-2019 take 1 tablet by mouth twice daily Ciprofloxacin Hcl 500 MG tablet Discontinued 500 mg PO TWICE A DAY August 31, 2019 12:00am November 23, 2019 10:37am Start: 01-10-2018 End: 01-18-2018 take 1 tablet by mouth twice daily Ciprofloxacin Hcl 500 MG tablet Discontinued 500 mg PO TWICE A DAY January 12, 2018 12:00am January 18, 2018 2:04pm Cranberry Fruit Concentrate (5 sources) Non-Standardized Food Allergenic Extract, Non-Standardized Plant Allergenic Extract Start: 01-10-2018 End: 10-12-2018 take 500 mg by mouth once daily Cranberry Fruit Concentrate Discontinued 500 MG PO DAILY January 10, 2018 5:33pm October 12, 2018 1:47pm Start: 01-10-2018 End: 10-12-2018 take 1 tablet by mouth once daily Cranberry Fruit Concentrate 250 MG tablet,chewable Discontinued 500 mg PO DAILY January 10, 2018 12:00am October 12, 2018 1:47pm Start: 01-10-2018 End: 10-12-2018 take 500 mg by mouth once daily Cranberry Fruit Concentrate Discontinued 500 MG PO DAILY January 10, 2018 12:00am October 12, 2018 1:47pm Start: 01-10-2018 End: 10-12-2018 take 500 mg by mouth once daily Cranberry Fruit Concentrate Discontinued 500 MG PO DAILY January 09, 2018 11:00pm October 12, 2018 12:47pm 24 hr dilTIAZem hydrochloride 240 mg extended release oral capsule (5 sources) Calcium Channel Pardeep Start: 07-28-2015 End: 09-23-2017 take 1 capsule by mouth once daily Diltiazem Hcl 240 MG Capsule.Er Discontinued 240 mg PO DAILY July 28, 2015 1:00am September 23, 2017 10:24am pramoxine hydrochloride 10 mg/ml / zinc acetate 1 mg/ml topical lotion (3 sources) Start: 08-08-2022 End: 04-02-2023 Pramoxine-Zinc Acetate 1-0.1 % lotion Discontinued 1 NMA TOPICAL THREE TIMES A DAY as needed for skin irritation August 08, 2022 12:00am April 02, 2023 2:54pm Start: 08-08-2022 Pramoxine-Zinc Acetate Active 1 APPLIC TOPICAL THREE TIMES A DAY August 08, 2022 12:00am ticagrelor 90 mg oral tablet (5 sources) Start: 09-23-2017 End: 09-29-2017 take 1 tablet by mouth twice daily Ticagrelor 90 MG tablet Discontinued 90 mg PO TWICE A DAY 60 September 23, 2017 12:00am September 29, 2017 11:49am Problems Active Problems Problem Classification Problem Date Documented Da te Episodic/Chronic Complication of device; implant or graft (5 sources) Catheter-associated urinary tract infection; Translations: [Infection and inflammatory reaction due to indwelling urethral catheter, initial encounter] 08-31-2019 Episodic Comment on above: stent Coronary atherosclerosis and other heart disease (20 sources) Coronary arteriosclerosis; Translations: [Atherosclerotic heart disease of [place] coronary artery without angina pectoris] Onset: 09-21-2017 Chronic Comment on above: Stent to RCA 8 Diabetes mellitus without complication (5 sources) Type 2 diabetes mellitus; Translations: [Type 2 diabetes mellitus without complications] 01-10-2018 Chronic Disorders of lipid metabolism (6 sources) Pure hypercholesterolemi a; Translations: [Pure hypercholesterolemi a, unspecified] Chronic Essential hypertension (7 sources) Essential hypertension; Translations: [Essential (primary) hypertension] Onset: 10-29-2024 Chronic Heart valve disorders (6 sources) Heart murmur; Translations: [Cardiac murmur, unspecified] Episodic Thyroid disorders (5 sources) Hypothyroidism; Translations: [Hypothyroidism, unspecified] 01-10-2018 Chronic Urinary tract infections (5 sources) Urinary tract infectious disease; Translations: [Urinary tract infection, site not specified] 09-01-2019 Episodic Past or Other Problems Problem Classification Problem Date Documented Da te Episodic/Chronic Coronary atherosclerosis and other heart disease (6 sources) Stented coronary artery; Translations: [Presence of coronary angioplasty implant and graft] Onset: 09-21-2017 Episodic Comment on above: Stent to RCA 8 Results Test Name Value Interpretation Reference Range Facility Cardiology Visit Reporton Cardiology Visit Report [facility] [address] [place], [place] [address] OFFICE VISIT Date of Service: 03/30/25 MR#: [id number] Acct: [id number] Name: EMMA CERDA Rep #: [id number] : 1945 Provider: Dr. Rober waller DO Age/Sex: 79/M Location: [facility] Status: Signed HPI HPI History of Present Illness Details: EMMA CERDA, is a 78 M who presents to the office today for a cardiovascular follow-up. He has a history of coronary artery disease with stenting to his RCA in September 2017. He also has a history of hypertension, hyperlipidemia and diabetes. Medications include: Aspirin 81 mg daily, atorvastatin 40 mg daily, glimepiride, losartan hydrochlorothiazide 100/12.5 mg daily, metformin 1000 mg p.o. twice daily, metoprolol tartrate 50 mg twice daily Patient was last seen in 03/2024, admits he was doing well without acute complaints. Patient admits he feels well today with no acute complaints. He denies all exertional symptoms, and has no chest pain. 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 Is patient in pain?: No Allergies morphine Allergy (Verified 03/30/25 13:00) burning in chest tetracycline Allergy (Verified 03/30/25 13:00) Nausea/Vom/Diarrhea-al most fainted Medications ???Medication ???Instructions ???Recorded ???Confirmed ???Type atorvastatin 40 mg tablet 40 mg PO QHS cholesterol 03/06/16 11/07/25 History losartan 100 1 tab PO DAILY BP 07/28/15 5 History mg-hydrochlorothiazide 12.5 mg tablet shobxwmq-of-aorex 300 mcg-K 60 1 tab PO DAILY supplement 01/10/18 03/30/25 History mcg-lycop 600 mcg-lutein 300 mcg tablet aspirin 81 mg tablet,delayed 81 mg PO DAILY 01/18/18 03/30/25 H istory release (Adult Aspirin Regimen) levothyroxine 50 mcg tablet 50 mcg PO DAILY thyroid 08/31/19 1 05/30/24 History nitroglycerin 0.4 mg sublingual 0.4 mg sublingual Q5M PRN 04/02/23 03/30/25 Rx tablet Cardiac/Chest Pain #25 tabs clopidogrel 75 mg tablet See Rx Instructions .Route 4 03/30/25 Rx .COMPLEX #90 tabs metoprolol tartrate 50 mg tablet 50 mg PO BID #180 tabs 07/13/24 Rx glimepiride 2 mg tablet 2 mg PO BID 03/30/25 03/30/25 Hist ory metformin 1,000 mg tablet 1,000 mg PO QDAY 03/30/25 03/30/25 History Ejection fraction %: 75 Have you fallen in the past year?: [facility] History Essential hypertension Hyperlipidemia Atherosclerotic heart disease of [place] coronary artery without angina pectoris Angina pectoris Cardiac murmur Type 2 diabetes mellitus Pure hypercholesterolemia History of kidney stones Surgical History Presence of stent in coronary artery ( 09/22/17) History of cholecystectomy History of ureter stent ( 01/05/18) Family History Mother Diabetes Social History Smoking Status: Former smoker how long ago did patient quit smokin years ago alcohol intake: never substance use type: does not use caffeine: Yes Type: coffee Number of servings: 4 what type of physical activity do you participate in: none seatbelt use: always do you feel safe at home: Yes ROS Const Const: Negative for fatigue or weakness Eyes Eyes: Negative for change in vision ENT ENT: Negative for dizziness or balance problems Cardio Chest Pain: No Palpitations: No Edema: None Resp Respiratory: Negative for SOB with activity, SOB at rest or SOB orthopnea SOB lying down GI GI: Negative nausea or heartburn Musc Musc: Negative for balance problems Neuro Neuro: Negative for dizziness, lightheadedness, near syncope, syncope or weakness Endo Endo: Negative for fatigue ROS Narrative 14 point ROS reviewed, and negative unless specified in HPI above. Cardiology Exam Exam Narrative ???Gen: A Ox3, NAD ???HEENT: Normocephalic/Atraumati c, MMM ???Neck: Supple, no JVD ???Pulm: Normal work of breathing, CTA bilaterally with no wheezes or crackles ???CV: RRR, normal S1/S2, no m/r/g ???Abd: Soft, NT/ND ???Extr: Warm to touch, no LE edema, distal pulses intact and symmetric in upper and lower extremities ???Neuro: No gross focal deficits, normal speech ???Psych: Normal affect, answers questions appropriately Supplemental Info Supplemental Information Echocardiogram: 10-07-2017 Interpretation Summary The study was (more content not included)... Normal [facility] Absolute lymphocyte countOrd ered By: Max Nunez on 10-24-2024 Lymphocytes Auto (Unsp spec) [#/Vol] 1.42 10*3/uL 0.83-4.51 [facility] Absolute neutrophil countOrd ered By: Max Nunez on 10-24-2024 Neutrophils (Bld) [#/Vol] 4.8 10*3/uL 2.0-7.7 [facility] Anion gap in Serum or Plasma Ordered By: Max Nunez on 10-24-2024 Anion gap [Moles/Vol] 12 mmol/L 5-15 [facility] Automated lymphocyte count a s percentage of total leukocytesOrdered By: Max Nunez on 10-24-2024 Lymphocytes/100 WBC Auto (Unsp spec) 19.3 % 19-41 [facility] BUN/creatinine ratioOrdered By: Max Nunez on 10-24-2024 Urea nitrogen/Creatinine [Mass ratio] 21.5 mg/mg High 10-20 [facility] Basophil percentageOrdered B y: Max Nunez on 10-24-2024 Basophils/100 WBC (Bld) 0.9 % 0-1 [facility] Bilirubin, totalOrdered By: Max Nunez on 10-24-2024 Bilirubin [Mass/Vol] 1.49 mg/dL High 0.00-1.30 [facility] CBC W/Diff, Automatedon 06-2024 Absolute Lymph 1.42 X10 3/uL Normal 0.83-4.51 [facility] Comment on above: Performed By: #### L 500.4050, L501.9520, L506.1001, L100.0100 #### [facility] [address] [place], [address] Absolute Neut 4.8 X10 3/uL Normal 2.0-7.7 [facility] Comment on above: Performed By: #### L 500.4050, [id number], L506.1001, L100.0100 #### [facility] [address] [place], [address] Basophils/100 WBC (Bld) 0.9 % Normal 0-1 [facility] Comment on above: Performed By: #### L 500.4050, [id number], L506.1001, L100.0100 #### [facility] [address] [place], [address] Eosinophils/100 WBC (Bld) 3.1 % Normal 0-5 [facility] Comment on above: Performed By: #### L 500.4050, [id number], L506.1001, L100.0100 #### [facility] [address] [place], [address] Erythrocyte distribution width (RBC) [Ratio] 14.3 % Normal 11.6-14.6 [facility] Comment on above: Performed By: #### L 500.4050, [id number], L506.1001, L100.0100 #### [facility] [address] [place], [address] Hematocrit (Bld) [Volume fraction] 48.1 % Normal 40-54 [facility] Comment on above: Performed By: #### L 500.4050, [id number], L506.1001, L100.0100 #### [facility] [address] [place], [address] Hemoglobin (Bld) [Mass/Vol] 16.2 g/dL Normal 13.0-16.5 [facility] Comment on above: Performed By: #### L 500.4050, [id number], L506.1001, L100.0100 #### [facility] [address] [place], [address] IG% 0.300 Normal 0.0-0.9 [facility] Comment on above: Result Comment: IG% - Immature Granulocytes (promyelocytes, myelocytes and metamyelocytes) > 1% indicates that a LEFT SHIFT is Present. Performed By: #### L 500.4050, [id number], L506.1001, L100.0100 #### [facility] [address] [place], [address] Lymphocytes/100 WBC (Bld) 19.3 % Normal 19-41 [facility] Comment on above: Performed By: #### L 500.4050, [id number], L506.1001, L100.0100 #### [facility] [address] [place], [address] MCH (RBC) [Entitic mass] 30.1 pg Normal 27.0-32.0 [facility] Comment on above: Performed By: #### L 500.4050, [id number], L506.1001, L100.0100 #### [facility] [address] [place], [address] MCHC (RBC) [Mass/Vol] 33.7 g/dL Normal 32-36 [facility] Comment on above: Performed By: #### L 500.4050, [id number], L506.1001, L100.0100 #### [facility] [address] [place], [address] MCV (RBC) [Entitic vol] 89.4 fL Normal 80-94 [facility] Comment on above: Performed By: #### L 500.4050, [id number], L506.1001, L100.0100 #### [facility] [address] [place], [address] Monocytes/100 WBC (Bld) 11.1 % High 0-10 [facility] Comment on above: Performed By: #### L 500.4050, [id number], L506.1001, L100.0100 #### [facility] [address] [place], [address] Neutrophils/100 WBC (Bld) 65.3 % Normal 47-70 [facility] Comment on above: Performed By: #### L 500.4050, [id number], L506.1001, L100.0100 #### [facility] [address] [place], [address] Nucleated RBC (Bld) [#/Vol] 0 10*3/uL Normal 0-5 [facility] Comment on above: Performed By: #### L 500.4050, [id number], L506.1001, L100.0100 #### [facility] [address] [place], [address] Platelet mean volume (Bld) [Entitic vol] 11.2 fL Normal 6.2-12.0 [facility] Comment on above: Performed By: #### L 500.4050, [id number], L506.1001, L100.0100 #### [facility] [address] [place], [address] Platelets (Bld) [#/Vol] 141 10*3/uL Low 150-450 [facility] Comment on above: Performed By: #### L 500.4050, [id number], L506.1001, L100.0100 #### [facility] [address] [place], [address] RBC (Bld) [#/Vol] 5.38 10*6/uL Normal 4.6-6.2 [facility] Comment on above: Performed By: #### L 500.4050, [id number], L506.1001, L100.0100 #### [facility] [address] [place], [address] RDW SD 46.3 fl High 35.1-43.9 [facility] Comment on above: Performed By: #### L 500.4050, [id number], L506.1001, L100.0100 #### [facility] [address] [place], [address] WBC (Bld) [#/Vol] 7.4 10*3/uL Normal 4.4-11.0 [facility] Comment on above: Performed By: #### L 500.4050, [id number], L506.1001, L100.0100 #### [facility] [address] [place], [address] Carbon dioxide, total [Moles /volume] in Central venous bloodOrdered By: Max Nunez on 10-24-2024 CO2 [Moles/Vol] 25.1 mmol/L 21.0-32.0 [facility] Chloride assayOrdered By: Sourav Nunez on 10-24-2024 Chloride [Moles/Vol] 106 mmol/L 98-108 [facility] Comprehensive Metabolic Prof ilon 10-24-2024 Albumin [Mass/Vol] 4.6 g/dL Normal 3.4-4.8 [facility] Comment on above: Performed By: #### L 500.4050, [id number], L506.1001, L100.0100 #### [facility] [address] [place], [address] Albumin/Globulin [Mass ratio] 1.7 {ratio} Normal 0.9-2.4 [facility] Comment on above: Performed By: #### L 500.4050, [id number], L506.1001, L100.0100 #### [facility] [address] [place], [address] ALK PHOS 70 U/L Normal 40-129 [facility] Comment on above: Performed By: #### L 500.4050, [id number], L506.1001, L100.0100 #### [facility] [address] [place], [address] ALT [Catalytic activity/Vol] 36 U/L Normal <=46 [facility] Comment on above: Performed By: #### L 500.4050, [id number], L506.1001, L100.0100 #### [facility] [address] [place], [address] AST [Catalytic activity/Vol] 29 U/L Normal <=37 [facility] Comment on above: Performed By: #### L 500.4050, [id number], L506.1001, L100.0100 #### [facility] [address] [place], [address] Bilirubin [Mass/Vol] 1.49 mg/dL High 0.00-1.30 [facility] Comment on above: Performed By: #### L 500.4050, [id number], L506.1001, L100.0100 #### [facility] [address] [place], [address] BUN/CRE 21.5 RATIO High 10-20 [facility] Comment on above: Performed By: #### L 500.4050, [id number], L506.1001, L100.0100 #### [facility] [address] [place], [address] Calcium [Mass/Vol] 10.1 mg/dL Normal 7.6-11.0 [facility] Comment on above: Performed By: #### L 500.4050, [id number], L506.1001, L100.0100 #### [facility] [address] [place], [address] Chloride [Moles/Vol] 106 mmol/L Normal 98-108 [facility] Comment on above: Performed By: #### L 500.4050, [id number], L506.1001, L100.0100 #### [facility] [address] [place], [address] CO2 [Moles/Vol] 25.1 mmol/L Normal 21.0-32.0 [facility] Comment on above: Performed By: #### L 500.4050, L501.9520, L506.1001, L100.0100 #### [facility] [address] [place], [address] Creatinine [Mass/Vol] 1.35 mg/dL High 0.70-1.20 [facility] Comment on above: Performed By: #### L 500.4050, L501.9520, L506.1001, L100.0100 #### [facility] [address] [place], [address] GAP 12 Normal 5-15 [facility] Comment on above: Performed By: #### L 500.4050, L501.9520, L506.1001, L100.0100 #### [facility] [address] [place], [address] GFR/1.73 sq M.predicted among non-blacks MDRD (S/P/Bld) [Vol rate/Area] 54 mL/min/{1.73_m2} Low >60 [facility] Comment on above: Result Comment: mL/m in/1.73m2 CKD-EPI Creatinine Equation (2020) Performed By: #### L 500.4050, L501.9520, L506.1001, L100.0100 #### [facility] [address] [place], [address] Globulin (S) [Mass/Vol] 2.7 g/dL Normal 2.2-4.2 [facility] Comment on above: Performed By: #### L 500.4050, L501.9520, L506.1001, L100.0100 #### [facility] [address] [place], [address] Glucose [Mass/Vol] 164 mg/dL High 70-99 [facility] Comment on above: Performed By: #### L 500.4050, L501.9520, L506.1001, L100.0100 #### [facility] [address] [place], [address] Potassium [Moles/Vol] 4.7 mmol/L Normal 3.3-5.1 [facility] Comment on above: Performed By: #### L 500.4050, L501.9520, L506.1001, L100.0100 #### [facility] [address] [place], [address] Sodium [Moles/Vol] 143 mmol/L Normal 133-145 [facility] Comment on above: Performed By: #### L 500.4050, L501.9520, L506.1001, L100.0100 #### [facility] [address] [place], [address] T PROT 7.3 g/dL Normal 5.9-8.4 [facility] Comment on above: Performed By: #### L 500.4050, L501.9520, L506.1001, L100.0100 #### [facility] [address] [place], [address] Urea nitrogen [Mass/Vol] 29 mg/dL High 4-19 [facility] Comment on above: Performed By: #### L 500.4050, L501.9520, L506.1001, L100.0100 #### [facility] [address] [place], [address] Eosinophil percentageOrdered By: Max Nunez on 10-24-2024 Eosinophils/100 WBC (Bld) 3.1 % 0-5 [facility] Erythrocyte distribution wid th ratioOrdered By: Max Nunez on 10-24-2024 Erythrocyte distribution width (RBC) [Ratio] 14.3 % 11.6-14.6 [facility] Erythrocyte distribution wid th standard deviationOrdered By: Max Nunez on 10-24-2024 Erythrocyte distribution width (RBC) [Ratio] 46.3 fl High 35.1-43.9 [facility] Glomerular filtration rate ( GFR) estimation/1.73 sq m using serum, plasma, or whole bOrdered By: Max Nunez on 10-24-2024 GFR/1.73 sq M.predicted among non-blacks MDRD (S/P/Bld) [Vol rate/Area] 54 mL/min/{1.73_m2} Low >60 [facility] Comment on above: mL/min/1.73m2 CKD-EP I Creatinine Equation (2020) Hematocrit Auto (Bld) [Volum e fraction]Ordered By: Max Nnuez on 10-24-2024 Hematocrit (Bld) [Volume fraction] 48.1 % 40-54 [facility] Hemoglobin measurementOrdere d By: Max Nunez on 10-24-2024 Hemoglobin (Bld) [Mass/Vol] 16.2 g/dL 13.0-16.5 [facility] Immature granulocytes/100 WB C Auto (Bld)Ordered By: Max Nunez on 10-24-2024 Immature granulocytes/100 WBC (Bld) 0.300 % 0.0-0.9 [facility] Comment on above: IG% - Immature Granu locytes (promyelocytes, myelocytes and metamyelocytes) > 1% indicates that a LEFT SHIFT is Present. Laboratory - Chemistry and C hemistry - challengeOrdered By: Max Nunez on 10-24-2024 AST [Catalytic activity/Vol] 29 U/L <38 [facility] MCV (mean corpuscular volume ) determinationOrdered By: Max Nunez on 10-24-2024 MCV (RBC) [Entitic vol] 89.4 fL 80-94 [facility] Mean corpuscular hemoglobin (MCH) determinationOrdered By: Max Nunez 10-24-2024 MCH (RBC) [Entitic mass] 30.1 pg 27.0-32.0 [facility] Mean corpuscular hemoglobin concentration (MCHC) determinationOrdered By: Max Nunez 10-24-2024 MCHC (RBC) [Mass/Vol] 33.7 g/dL 32-36 [facility] Mean platelet volume determi nationOrdered By: Max Nunez on 10-24-2024 Platelet mean volume (Bld) [Entitic vol] 11.2 fL 6.2-12.0 [facility] Monocyte percentageOrdered B y: Max Nunez on 10-24-2024 Monocytes/100 WBC (Bld) 11.1 % High 0-10 [facility] Neutrophil percentageOrdered By: Max Nunez on 10-24-2024 Neutrophils/100 WBC (Bld) 65.3 % 47-70 [facility] Nucleated red blood cell per centageOrdered By: Max Nunez on 10-24-2024 Nucleated RBC/100 WBC (Bld) [Ratio] 0 % 0-5 [facility] Platelet countOrdered By: Sourav Nunez on 10-24-2024 Platelets (Bld) [#/Vol] 141 10*3/uL Low 150-450 [facility] Potassium measurement (mass/ volume)Ordered By: Max Nunez on 10-24-2024 Potassium (Unsp spec) [Mass/Vol] 4.7 mmol/L 3.3-5.1 [facility] RBC Auto (Bld) [#/Vol]Ordere d By: Max Nunez on 10-24-2024 RBC (Bld) [#/Vol] 5.38 10*6/uL 4.6-6.2 [facility] Serum creatinine measurement (mass/volume)Ordered By: Max Nunez on 10-24-2024 Creatinine [Mass/Vol] 1.35 mg/dL High 0.70-1.20 [facility] Serum globulin measurementOr dered By: Max Nunez on 10-24-2024 Globulin (S) [Mass/Vol] 2.7 g/dL 2.2-4.2 [facility] Serum glucose measurement (m ass/volume)Ordered By: Max Nunez on 10-24-2024 Glucose [Mass/Vol] 164 mg/dL High 70-99 [facility] Serum or plasma alanine uriostegui otransferase (ALT) measurementOrdered By: Max Nunez 10-24-2024 ALT [Catalytic activity/Vol] 36 U/L <47 [facility] Serum or plasma albumin mago urement (mass/volume)Ordered By: Max Nunez on 10-24-2024 Albumin [Mass/Vol] 4.6 g/dL 3.4-4.8 [facility] Serum or plasma albumin/glob ulin mass ratioOrdered By: Max Nunez 10-24-2024 Albumin/Globulin [Mass ratio] 1.7 {ratio} 0.9-2.4 [facility] Serum or plasma alkaline hollie sphatase measurementOrdered By: Max Nunez 10-24-2024 ALP [Catalytic activity/Vol] 70 U/L 40-129 [facility] Serum or plasma calcium mago urement (mass/volume)Ordered By: Max Nunez 10-24-2024 Calcium [Mass/Vol] 10.1 mg/dL 7.6-11.0 [facility] Serum or plasma urea nitroge n measurement (mass/volume)Ordered By: Max Nunez on 10-24-2024 Urea nitrogen [Mass/Vol] 29 mg/dL High 4-19 [facility] Sodium levelOrdered By: Max Nunez 10-24-2024 Sodium [Moles/Vol] 143 mmol/L 133-145 [facility] TSH DL <= 0.005 mIU/L QnOrde red By: Max Nunez on 10-24-2024 TSH Qn 1.840 uIU/mL 0.300-4.200 [facility] Thyroid Stim Hormone (TSH)on 10-24-2024 TSH 1.840 uIU/mL Normal 0.300-4.200 [facility] Comment on above: Performed By: #### L 500.4050, L501.9520, L506.1001, L100.0100 #### [facility] [address] [place], [address] Total proteinOrdered By: Max Nunez on 10-24-2024 Protein [Mass/Vol] 7.3 g/dL 5.9-8.4 [facility] Vitamin D,25 Hydroxyon 10-24 Vitamin D 25-OH 40.6 ng/mL Normal 30-100 [facility] Comment on above: Result Comment: Rach min D Status Deficiency: <20 ng/mL (50nmol/L) Insufficiency: 20-30 ng/mL (50-75 nmol/L) Sufficiency: 30-100 ng/mL (75-250 nmol/L) Toxicity: >100 ng/mL (>250 nmol/L) Performed By: #### L 500.4050, L501.9520, L506.1001, L100.0100 #### [facility] [address] [place], [address] White blood cell (WBC) count Ordered By: Max Nunez on 10-24-2024 WBC (Bld) [#/Vol] 7.4 10*3/uL 4.4-11.0 [facility] CBC W/Diff, Automatedon 12-0 Absolute Lymph 1.71 X10 3/uL Normal 0.83-4.51 [facility] Comment on above: Performed By: #### L 506.1000, L501.9520, L500.4050, L100.0100 #### [facility] [address] [place], [address] Absolute Neut 4.7 X10 3/uL Normal 2.0-7.7 [facility] Comment on above: Performed By: #### L 506.1000, L501.9520, L500.4050, L100.0100 #### [facility] [address] [place], [address] Basophils/100 WBC (Bld) 0.9 % Normal 0-1 [facility] Comment on above: Performed By: #### L 506.1000, L501.9520, L500.4050, L100.0100 #### [facility] [address] [place], [address] Eosinophils/100 WBC (Bld) 3.4 % Normal 0-5 [facility] Comment on above: Performed By: #### L 506.1000, L501.9520, L500.4050, L100.0100 #### [facility] [address] [place], [address] Erythrocyte distribution width (RBC) [Ratio] 13.8 % Normal 11.6-14.6 [facility] Comment on above: Performed By: #### L 506.1000, L501.9520, L500.4050, L100.0100 #### [facility] [address] [place], [address] Hematocrit (Bld) [Volume fraction] 46.5 % Normal 40-54 [facility] Comment on above: Performed By: #### L 506.1000, L501.9520, L500.4050, L100.0100 #### [facility] [address] [place], [address] Hemoglobin (Bld) [Mass/Vol] 15.3 g/dL Normal 13.0-16.5 [facility] Comment on above: Performed By: #### L 506.1000, L501.9520, L500.4050, L100.0100 #### [facility] [address] [place], [address] IG% 0.300 Normal 0.0-0.9 [facility] Comment on above: Result Comment: IG% - Immature Granulocytes (promyelocytes, myelocytes and metamyelocytes) > 1% indicates that a LEFT SHIFT is Present. Performed By: #### L 506.1000, L501.9520, L500.4050, L100.0100 #### [facility] [address] [place], [address] Lymphocytes/100 WBC (Bld) 22.5 % Normal 19-41 [facility] Comment on above: Performed By: #### L 506.1000, L501.9520, L500.4050, L100.0100 #### [facility] [address] [place], [address] MCH (RBC) [Entitic mass] 29.4 pg Normal 27.0-32.0 [facility] Comment on above: Performed By: #### L 506.1000, L501.9520, L500.4050, L100.0100 #### [facility] [address] [place], [address] MCHC (RBC) [Mass/Vol] 32.9 g/dL Normal 32-36 [facility] Comment on above: Performed By: #### L 506.1000, L501.9520, L500.4050, L100.0100 #### [facility] [address] [place], [address] MCV (RBC) [Entitic vol] 89.3 fL Normal 80-94 [facility] Comment on above: Performed By: #### L 506.1000, L501.9520, L500.4050, L100.0100 #### [facility] [address] [place], [address] Monocytes/100 WBC (Bld) 10.8 % High 0-10 [facility] Comment on above: Performed By: #### L 506.1000, L501.9520, L500.4050, L100.0100 #### [facility] [address] [place], [address] Neutrophils/100 WBC (Bld) 62.1 % Normal 47-70 [facility] Comment on above: Performed By: #### L 506.1000, L501.9520, L500.4050, L100.0100 #### [facility] [address] [place], [address] Nucleated RBC (Bld) [#/Vol] 0 10*3/uL Normal 0-5 [facility] Comment on above: Performed By: #### L 506.1000, L501.9520, L500.4050, L100.0100 #### [facility] [address] [place], [address] Platelet mean volume (Bld) [Entitic vol] 11.0 fL Normal 6.2-12.0 [facility] Comment on above: Performed By: #### L 506.1000, L501.9520, L500.4050, L100.0100 #### [facility] [address] [place], [address] Platelets (Bld) [#/Vol] 158 10*3/uL Normal 150-450 [facility] Comment on above: Performed By: #### L 506.1000, L501.9520, L500.4050, L100.0100 #### [facility] [address] [place], [address] RBC (Bld) [#/Vol] 5.21 10*6/uL Normal 4.6-6.2 [facility] Comment on above: Performed By: #### L 506.1000, L501.9520, L500.4050, L100.0100 #### [facility] [address] [place], [address] RDW SD 45.0 fl High 35.1-43.9 [facility] Comment on above: Performed By: #### L 506.1000, L501.9520, L500.4050, L100.0100 #### [facility] [address] [place], [address] WBC (Bld) [#/Vol] 7.6 10*3/uL Normal 4.4-11.0 [facility] Comment on above: Performed By: #### L 506.1000, L501.9520, L500.4050, L100.0100 #### [facility] [address] [place], [address] Comprehensive Metabolic Prof ilon 04-25-2024 Albumin [Mass/Vol] 3.9 g/dL Normal 3.2-5.0 [facility] Comment on above: Performed By: #### L 506.1000, L501.9520, L500.4050, L100.0100 #### [facility] [address] [place], [address] Albumin/Globulin [Mass ratio] 1.2 {ratio} Normal 0.9-2.4 [facility] Comment on above: Performed By: #### L 506.1000, L501.9520, L500.4050, L100.0100 #### [facility] [address] [place], [address] ALK P 69 U/L Normal 45-117 [facility] Comment on above: Performed By: #### L 506.1000, L501.9520, L500.4050, L100.0100 #### [facility] [address] [place], [address] ALT [Catalytic activity/Vol] 39 U/L Normal 16-61 [facility] Comment on above: Performed By: #### L 506.1000, L501.9520, L500.4050, L100.0100 #### [facility] [address] [place], [address] AST [Catalytic activity/Vol] 18 U/L Normal 15-37 [facility] Comment on above: Performed By: #### L 506.1000, L501.9520, L500.4050, L100.0100 #### [facility] [address] [place], [address] Bilirubin [Mass/Vol] 1.30 mg/dL High 0.20-1.00 [facility] Comment on above: Result Comment: For patients on eltrombopag therapy, use of [employer] TBIL is not recommended. Performed By: #### L 506.1000, L501.9520, L500.4050, L100.0100 #### [facility] [address] [place], [address] BUN/CRE 21.4 RATIO High 10-20 [facility] Comment on above: Performed By: #### L 506.1000, L501.9520, L500.4050, L100.0100 #### [facility] [address] [place], [address] CA,Total 9.4 mg/dL Normal 8.5-10.1 [facility] Comment on above: Performed By: #### L 506.1000, L501.9520, L500.4050, L100.0100 #### [facility] [address] [place], [address] Chloride [Moles/Vol] 110 mmol/L High 98-107 [facility] Comment on above: Performed By: #### L 506.1000, L501.9520, L500.4050, L100.0100 #### [facility] [address] [place], [address] CO2 [Moles/Vol] 28.0 mmol/L Normal 21.0-32.0 [facility] Comment on above: Performed By: #### L 506.1000, L501.9520, L500.4050, L100.0100 #### [facility] [address] [place], [address] Creatinine [Mass/Vol] 1.31 mg/dL High 0.70-1.30 [facility] Comment on above: Result Comment: The validity of the calculated GFR GFRAA in patients over 70 years has not been determined. Clinical correlation is essential. Performed By: #### L 506.1000, L501.9520, L500.4050, L100.0100 #### [facility] [address] [place], [address] EST GFR - AA 68 mL/min Normal >60 [facility] Comment on above: Result Comment: Afri can [place] GFR Calc Performed By: #### L 506.1000, L501.9520, L500.4050, L100.0100 #### [facility] [address] [place], [address] GAP 4 Low 5-15 [facility] Comment on above: Performed By: #### L 506.1000, L501.9520, L500.4050, L100.0100 #### [facility] [address] [place], [address] GFR/1.73 sq M.predicted among non-blacks MDRD (S/P/Bld) [Vol rate/Area] 56 mL/min/{1.73_m2} Low >60 [facility] Comment on above: Result Comment: Non- GFR Calc Performed By: #### L 506.1000, L501.9520, L500.4050, L100.0100 #### [facility] [address] [place], [address] Globulin (S) [Mass/Vol] 3.3 g/dL Normal 2.2-4.2 [facility] Comment on above: Performed By: #### L 506.1000, L501.9520, L500.4050, L100.0100 #### [facility] [address] [place], [address] Glucose [Mass/Vol] 198 mg/dL High 74-106 [facility] Comment on above: Result Comment: Fast ing Glucose result greater than or equal to 126 mg/dL suggests DIABETES MELLITUS per A.D.A. criteria. Performed By: #### L 506.1000, L501.9520, L500.4050, L100.0100 #### [facility] [address] [place], [address] Potassium [Moles/Vol] 4.6 mmol/L Normal 3.5-5.1 [facility] Comment on above: Performed By: #### L 506.1000, L501.9520, L500.4050, L100.0100 #### [facility] [address] [place], [address] Sodium [Moles/Vol] 141 mmol/L Normal 136-145 [facility] Comment on above: Performed By: #### L 506.1000, L501.9520, L500.4050, L100.0100 #### [facility] [address] [place], [address] T PROT 7.2 g/dL Normal 6.4-8.2 [facility] Comment on above: Performed By: #### L 506.1000, L501.9520, L500.4050, L100.0100 #### [facility] [address] [place], [address] Urea nitrogen [Mass/Vol] 28 mg/dL High 7-18 [facility] Comment on above: Performed By: #### L 506.1000, L501.9520, L500.4050, L100.0100 #### [facility] [address] [place], [address] Thyroid Stim Hormone (TSH)on 04-25-2024 TSH 2.850 uIU/mL Normal 0.358-3.740 [facility] Comment on above: Performed By: #### L 506.1000, L501.9520, L500.4050, L100.0100 #### [facility] [address] [place], [address] Vitamin D,25 Hydroxyon 04-25 Vitamin D 25-OH 41.6 ng/mL Normal [facility] Comment on above: Result Comment: Rach min D 25(OH) Status Range Deficiency <20 ng/mL (50nmol/L) Insufficiency 20 - 30 ng/mL (50 - 75 nmol/L) Sufficiency 30 - 100 ng/mL (75 - 250 nmol/L) Toxicity >100 ng/mL (>250 nmol/L) Performed By: #### L 506.1000, L501.9520, L500.4050, L100.0100 #### [facility] [address] [place], [address] Cardiology Visit Reporton Cardiology Visit Report [facility] [address] [place] [address] OFFICE VISIT Date of Service: 04/04/24 MR#: [id number] Acct: [id number] Name: EMMA CERDA Rep #: [id number] : 1945 Provider: AMALIA Padron Age/Sex: 78/M Location: [facility] Status: Signed HPI HPI History of Present Illness Details: EMMA CERDA, is a 78 M who presents to the office today for a cardiovascular follow-up. He has a history of coronary artery disease with stenting to his RCA in September 2017. He also has a history of hypertension, hyperlipidemia and diabetes. From a cardiac standpoint, patient is doing well. He does not have any further chest discomfort/heaviness/ti ghtness. He does not have any worsening symptoms of shortness of breath. He denies any PND. He does not have any orthopnea. He does not have any symptoms of congestive heart failure. He does not have any palpitations that he is aware of. He does not have any lightheadedness or dizziness. He does not have any near-syncope or syncope. He does not have any lower extremity edema. He does not have any symptoms of claudication Intake Vital Signs 04/02/23 13:51 04/04/24 13:15 04/04/24 13:38 Height 5 ft 4 in 5 ft 4 in Weight: 194 lb BMI 33.3 BP 161/81 H 136/70 H Blood Pressure Location Lt brachial Position Sitting Respiration 18 Pulse 70 Pulse Source Monitor Pulse Oximetry (%) 97 Intake Visit Reasons: 1 Y [employer] Required: No Is patient in pain?: No Allergies morphine Allergy (Verified 04/04/24 13:15) burning in chest tetracycline Allergy (Verified 04/04/24 13:15) Nausea/Vom/Diarrhea-al most fainted Medications ???Medication ???Instructions ???Recorded ???Confirmed ???Type atorvastatin 40 mg tablet 40 mg PO QHS cholesterol 07/28/15 04/04/24 History losartan 100 1 tab PO DAILY BP 07/28/15 04/04/24 History mg-hydrochlorothiazide 12.5 mg tablet yephyxle-lk-bhwnc 300 mcg-K 60 1 tab PO DAILY supplement 01/10/18 04/04/24 History mcg-lycop 600 mcg-lutein 300 mcg tablet aspirin 81 mg tablet,delayed 81 mg PO DAILY 01/18/18 04/02/23 History release (Adult Aspirin Regimen) levothyroxine 50 mcg tablet 50 mcg PO DAILY thyroid 08/31/19 04/04/24 History metformin 1,000 mg tablet 1,000 mg PO BID 08/31/19 04/04/24 History nitroglycerin 0.4 mg sublingual 0.4 mg sublingual Q5M PRN 04/02/23 04/04/24 Rx tablet Cardiac/Chest Pain #25 tabs clopidogrel 75 mg tablet See Rx Instructions .Route 04/22/23 04/04/24 Rx .COMPLEX #90 tabs metoprolol tartrate 50 mg tablet 50 mg PO BID dose increased back 05/19/23 04/04/24 Rx to TWICE per day. #180 tabs glimepiride 4 mg tablet 2 mg PO BIDCM sugar 04/04/24 04/04/24 History Have you fallen in the past year?: No PFSH Medical History Cardiac murmur Pure hypercholesterolemia Presence of stent in coronary artery ( 09/22/17) Essential hypertension Atherosclerotic heart disease of [place] coronary artery without angina pectoris Angina pectoris History of kidney stones Type 2 diabetes mellitus Surgical History Presence of coronary angioplasty implant and graft ( 09/22/17) History of cholecystectomy History of ureter stent ( 01/05/18) Family History Mother Diabetes Social History Smoking Status: Never smoker how long ago did patient quit smokin years ago alcohol intake: current alcohol intake frequency: holidays/special occasions only substance use type: does not use caffeine: Yes Type: coffee Number of servings: 1 what type of physical activity do you participate in: none seatbelt use: always do you feel safe at home: Yes ROS Const Const: Negative for fatigue, weakness, fever(s) or headache(s) Eyes Eyes: Negative for blind spots, loss of peripheral vision or transient loss of vision ENT ENT: Negative for headache(s), dizziness, tinnitus, Nosebleed/epistaxis or balance problems Cardio Chest Pain: No Palpitations: No Edema: None Muscle aches with walking: None Resp Respiratory: Negative for SOB with activity, SOB at rest, SOB orthopnea SOB lying down or Cough GI GI: Negative nausea, vomiting, heartburn or vomiting blood/hematemesis : Negative for hematuria Musc Musc: Negative for muscle aches/ myalgia, muscle weakness, joint pain or balance problems Neuro Neuro: Negative for dizziness, lightheadedness, near syncope, syncope, orthostatic symptoms, headache(s) or weakness Lino Hematologic/Lymphatic: Negative for easy bleeding Endo Endo: Negative for fatigue Cardiology Exam Const (more content not included)... Normal [facility] Absolute lymphocyte countOrd ered By: Dr. Nunez on 10-12-2022 Lymphocytes Auto (Unsp spec) [#/Vol] 1.67 10*3/uL 0.83-4.51 [facility] Basophil percentageOrdered B y: Dr. Nunez on 10-12-2022 Basophils/100 WBC (Bld) 0.3 % 0-1 [facility] Bilirubin [Mass/Vol] 0.30 mg/dL 0.20-1.00 [facility] Comment on above: For patients on eltr ombopag therapy, use of Dimension [employer] TBIL is not recommended. Chloride [Moles/Vol] 109 mmol/L 98-107 [facility] Eosinophils/100 WBC (Bld) 1.6 % 0-5 [facility] Glucose [Mass/Vol] 118 mg/dL 74-106 [facility] Comment on above: Fasting Glucose resu lt from 100 to 125 mg/dL suggests IMPAIRED HOMEOSTASIS per A.D.A. criteria. Neutrophils (Bld) [#/Vol] 6.7 10*3/uL 2.0-7.7 [facility] Neutrophils/100 WBC (Bld) 70.7 % 47-70 [facility] Potassium [Moles/Vol] 3.8 mmol/L 3.5-5.1 [facility] Protein [Mass/Vol] 7.2 g/dL 6.4-8.2 [facility] Sodium [Moles/Vol] 142 mmol/L 136-145 [facility] WBC (Bld) [#/Vol] 9.4 10*3/uL 4.4-11.0 [facility] Blood erythrocytes count (nu mber/volume)Ordered By: Dr. Nunez on 10-12-2022 RBC (Bld) [#/Vol] 4.26 10*6/uL 4.6-6.2 [facility] Blood hemoglobin measurement (mass/volume)Ordered By: Dr. Nunez on 10-12-2022 Hemoglobin (Bld) [Mass/Vol] 13.4 g/dL 13.0-16.5 [facility] Blood lymphocytes/100 leukoc ytesOrdered By: Dr. Nunez on 10-12-2022 Lymphocytes/100 WBC (Bld) 17.7 % 19-41 [facility] Blood monocytes/100 leukocyt esOrdered By: Dr. Nunez on 10-12-2022 Monocytes/100 WBC (Bld) 9.3 % 0-10 [facility] Blood platelet mean volumeOr dered By: Dr. Nunez on 10-12-2022 Platelet mean volume (Bld) [Entitic vol] 12.3 fL 6.2-12.0 [facility] Determination of erythrocyte mean corpuscular volume (MCV)Ordered By: Dr. Nunez on 10-12-2022 MCV (RBC) [Entitic vol] 98.6 fL 80-94 [facility] Hematocrit Auto (Bld) [Volum e fraction]Ordered By: Dr. Nunez on 10-12-2022 Hematocrit (Bld) [Volume fraction] 42.0 % 40-54 [facility] Laboratory - Chemistry and C hemistry - challengeOrdered By: Dr. Nunez on 10-12-2022 ALP [Catalytic activity/Vol] 108 U/L 45-117 [facility] ALT [Catalytic activity/Vol] 25 U/L 16-61 [facility] CO2 [Moles/Vol] 24.0 mmol/L 21.0-32.0 [facility] Globulin (S) [Mass/Vol] 3.4 g/dL 2.2-4.2 [facility] Urea nitrogen/Creatinine [Mass ratio] 32.8 mg/mg 10-20 [facility] Laboratory - Hematology and Cell countsOrdered By: Dr. Nunez on 10-12-2022 Erythrocyte distribution width (RBC) [Entitic vol] 47.1 fL 35.1-43.9 [facility] Erythrocyte distribution width (RBC) [Ratio] 13.1 % 11.6-14.6 [facility] Immature granulocytes/100 WBC (Bld) 0.400 % 0.0-0.9 [facility] Comment on above: IG% - Immature Granu locytes (promyelocytes, myelocytes and metamyelocytes) > 1% indicates that a LEFT SHIFT is Present. MCH (RBC) [Entitic mass] 31.5 pg 27.0-32.0 [facility] Nucleated RBC/100 WBC (Bld) [Ratio] 0 % 0-5 [facility] MCHC Auto (RBC) [Mass/Vol]Or dered By: Dr. Nunez on 10-12-2022 MCHC (RBC) [Mass/Vol] 31.9 g/dL 32-36 [facility] No Panel InformationOrdered By: Dr. Nunez on 10-12-2022 Estimated GFR (MDRD) Amer 156 mL/min >60 [facility] Comment on above: GFR Calc Estimated GFR (MDRD) Non-Af Amer 129 mL/min >60 [facility] Comment on above: Non- GFR Calc Thyroid Stimulating Hormone (TSH) 0.58 uIU/mL 0.358-3.74 [facility] Vitamin D 25-Hydroxy 33.4 ng/mL [facility] Comment on above: Vitamin D 25(OH) Sta tus Range Deficiency <20 ng/mL (50nmol/L) Insufficiency 20 - 30 ng/mL (50 - 75 nmol/L) Sufficiency 30 - 100 ng/mL (75 - 250 nmol/L) Toxicity >100 ng/mL (>250 nmol/L) Platelets bldOrdered By: Dr. Nunez on 10-12-2022 Platelets (Bld) [#/Vol] 247 10*3/uL 150-450 [facility] Serum or plasma albumin mago urement (mass/volume)Ordered By: Dr. Nunez on 10-12-2022 Albumin [Mass/Vol] 3.8 g/dL 3.2-5.0 [facility] Serum or plasma albumin/glob ulin mass ratioOrdered By: Dr. Nunez on 10-12-2022 Albumin/Globulin [Mass ratio] 1.1 {ratio} 0.9-2.4 [facility] Serum or plasma calcium mago urement (mass/volume)Ordered By: Dr. Nunez on 10-12-2022 Calcium [Mass/Vol] 8.7 mg/dL 8.5-10.1 [facility] Serum or plasma creatinine m easurement (mass/volume)Ordered By: Dr. Nunez on 10-12-2022 Creatinine [Mass/Vol] 0.64 mg/dL 0.70-1.30 [facility] Comment on above: The validity of the calculated GFR & GFRAA in patients over 70 years has not been determined. Clinical correlation is essential. Serum or plasma urea nitroge n measurement (mass/volume)Ordered By: Dr. Nunez on 10-12-2022 Urea nitrogen [Mass/Vol] 21 mg/dL 7-18 [facility] Thin prep Papanicolaou smear with manual screeningOrdered By: Dr. Nunez on 10-12-2022 Thin prep Papanicolaou smear with manual screening 16 U/L 15-37 [facility] Thin prep Papanicolaou smear with manual screening 9 5-15 [facility] No Panel Informationon 05-11 Prostate Specific Antigen Screen 3.71 ng/mL 0.00-4.00 [facility] Comment on above: This test was perfor med using the TPSA assay method for [employer] chemistry system. Values obtained with differentassay methods cannot be used interchangably.When changing PSA assays in the course of monitoring apatient, additional sequential testing should be carriedout to confirm baseline values. Basophil percentageon 2021 Basophil percentage 2.9 mg/dL 2.5-4.9 [facility] Work Phone: Chloride [Moles/Vol] 106 mmol/L 98-107 [facility] Work Phone: Glucose [Mass/Vol] 196 mg/dL 74-106 [facility] Work Phone: Comment on above: Fasting Glucose resu lt greater than or equal to 126 mg/dL suggests DIABETES MELLITUS per A.D.A. criteria. Potassium [Moles/Vol] 4.7 mmol/L 3.5-5.1 [facility] Work Phone: Sodium [Moles/Vol] 139 mmol/L 136-145 [facility] Work Phone: Laboratory - Chemistry and C hemistry - challengeon 03-25-2022 CO2 [Moles/Vol] 29.0 mmol/L 21.0-32.0 [facility] Work Phone: Urea nitrogen/Creatinine [Mass ratio] 19.0 mg/mg 10-20 [facility] Work Phone: No Panel Informationon 03-25 Estimated GFR (MDRD) Amer 60 mL/min >60 [facility] Work Phone: Comment on above: GFR Calc Estimated GFR (MDRD) Non-Af Amer 50 mL/min >60 [facility] Work Phone: Comment on above: Non- GFR Calc Serum or plasma albumin mago urement (mass/volume)on 03-25-2022 Albumin [Mass/Vol] 3.7 g/dL 3.2-5.0 [facility] Work Phone: [phone] Serum or plasma calcium mago urement (mass/volume)on 03-25-2022 Calcium [Mass/Vol] 9.5 mg/dL 8.5-10.1 [facility] Work Phone: Serum or plasma creatinine m easurement (mass/volume)on 03-25-2022 Creatinine [Mass/Vol] 1.47 mg/dL 0.70-1.30 [facility] Work Phone: Comment on above: The validity of the calculated GFR & GFRAA in patients over 70 years has not been determined. Clinical correlation is essential. Serum or plasma urea nitroge n measurement (mass/volume)on 03-25-2022 Urea nitrogen [Mass/Vol] 28 mg/dL 7-18 [facility] Work Phone: Urine creatinine measurement (mass/volume)on 03-25-2022 Creatinine (U) [Mass/Vol] 131.00 mg/dL NO RANGE EST. [facility] Work Phone: Urine protein measurement (m ass/volume)on 03-25-2022 Protein (U) [Mass/Vol] 11.5 mg/dL 0.0-11.8 [facility] Work Phone: Urine protein/creatinine mas s ratioon 03-25-2022 Protein/Creatinine (U) [Mass ratio] 88 mg/g CRE 0-200 [facility] Work Phone: Basophil percentageon 2021 Basophil percentage 3.8 mg/dL 2.5-4.9 [facility] Work Phone: Chloride [Moles/Vol] 104 mmol/L 98-107 [facility] Work Phone: Glucose [Mass/Vol] 117 mg/dL 74-106 [facility] Work Phone: Comment on above: Fasting Glucose resu lt from 100 to 125 mg/dL suggests IMPAIRED HOMEOSTASIS per A.D.A. criteria. Potassium [Moles/Vol] 3.8 mmol/L 3.5-5.1 [facility] Work Phone: Sodium [Moles/Vol] 140 mmol/L 136-145 [facility] Work Phone: Laboratory - Chemistry and C hemistry - challengeon 08-12-2021 CO2 [Moles/Vol] 27.0 mmol/L 21.0-32.0 [facility] Work Phone: Urea nitrogen/Creatinine [Mass ratio] 20.8 mg/mg 10-20 [facility] Work Phone: No Panel Informationon 08-12 Estimated GFR (MDRD) Amer 61 mL/min >60 [facility] Work Phone: Comment on above: GFR Calc Estimated GFR (MDRD) Non-Af Amer 51 mL/min >60 [facility] Work Phone: Comment on above: Non- GFR Calc Parathyroid Hormone (Intact) 59.5 pg/mL 18.4-80.1 [facility] Work Phone: Serum or plasma albumin mago urement (mass/volume)on 08-12-2021 Albumin [Mass/Vol] 3.7 g/dL 3.2-5.0 [facility] Work Phone: Serum or plasma calcium mago urement (mass/volume)on 08-12-2021 Calcium [Mass/Vol] 9.8 mg/dL 8.5-10.1 [facility] Work Phone: Serum or plasma creatinine m easurement (mass/volume)on 08-12-2021 Creatinine [Mass/Vol] 1.44 mg/dL 0.70-1.30 [facility] Work Phone: Comment on above: The validity of the calculated GFR & GFRAA in patients over 70 years has not been determined. Clinical correlation is essential. Serum or plasma urea nitroge n measurement (mass/volume)on 08-12-2021 Urea nitrogen [Mass/Vol] 30 mg/dL 7-18 [facility] Work Phone: No Panel Informationon 05-06 Prostate Specific Antigen Screen 1.97 ng/mL 0.00-4.00 [facility] Work Phone: Comment on above: This test was perfor med using the TPSA assay method for [employer] chemistry system. Values obtained with differentassay methods cannot be used interchangably.When changing PSA assays in the course of monitoring apatient, additional sequential testing should be carriedout to confirm baseline values. Urine creatinine measurement (mass/volume)on 04-30-2021 Creatinine (U) [Mass/Vol] 174.00 mg/dL NO RANGE EST. [facility] Work Phone: Urine protein measurement (m ass/volume)on 04-30-2021 Protein (U) [Mass/Vol] 27.0 mg/dL 0.0-11.8 [facility] Work Phone: Urine protein/creatinine mas s ratioon 04-30-2021 Protein/Creatinine (U) [Mass ratio] 155 mg/g CRE 0-200 [facility] Work Phone: Vital Signs Date Time Vital Sign Value Performing Clinician Faci lity 08-08-2022 18:25-0400 Body height 162.56 cm [facility] 08-08-2022 18:25-0400 Body mass index (BMI) [Ratio] 33.3 kg/m2 [facility] 08-08-2022 18:25-0400 Body temperature 96.1 [degF] [facility] 08-08-2022 18:25-0400 Body weight 88.17 kg [facility] 08-08-2022 18:25-0400 Diastolic blood pressure 63 mm[Hg] [facility] 08-08-2022 18:25-0400 Heart rate 63 /min [facility] 08-08-2022 18:25-0400 Respiratory rate 18 /min [facility] 08-08-2022 18:25-0400 SaO2% (BldA) [Mass fraction] 97 % [facility] 08-08-2022 18:25-0400 Systolic blood pressure 145 mm[Hg] [facility] 12-01-2021 14:35-0400 Body height 160.[address] Max Nunez Work Phone: [facility] Work Phone: 12-01-2021 14:35-0400 Body mass index (BMI) [Ratio] 33.1 kg/m2 Dr. Max Nunez Work Phone: [facility] Work Phone: 12-01-2021 14:35-0400 Body weight 84.[address] Max Nunez Work Phone: [facility] Work Phone: 12-01-2021 14:35-0400 Diastolic blood pressure 58 mm[Hg] Dr. Max Nunez Work Phone: [facility] Work Phone: 12-01-2021 14:35-0400 Heart rate 68 /min Dr. Max Nunez Work Phone: [facility] Work Phone: 12-01-2021 14:35-0400 Respiratory rate 16 /min Dr. Max Nunez Work Phone: [facility] Work Phone: 12-01-2021 14:35-0400 Systolic blood pressure 122 mm[Hg] Dr. Max Nunez Work Phone: [facility] Work Phone: Encounters Encounter Date Encounter Type Care Provider Facility Start: 03-30-2025 End: 03-30-2025 ambulatory Max Nunez Facility:[facility] Start: 10-24-2024 End: 10-24-[address] Max Nunez MD Work Phone: [facility] Work Phone: Start: 10-24-2024 End: 10-24-[address] Max Nunez MD -Laboratory Work Phone: Start: 10-24-2024 End: 10-24-2024 [facility] Start: 04-25-2024 End: 04-25-2024 ambulatory [facility] Facility:[facility] Start: 04-04-2024 End: 04-04-2024 ambulatory [facility] Facility:[facility] Start: 10-12-2022 End: 10-12-2022 ambulatory [facility] Work Phone: Start: 10-12-2022 End: 10-12-2022 Patient encounter procedure [facility]-Laboratory, Phy Office 3rd Flr Start: 08-08-2022 End: 08-08-2022 Emergency department patient visit [facility]Emergency Department Start: 05-11-2022 End: 05-11-2022 ambulatory [facility] Work Phone: Start: 05-11-2022 End: 05-11-2022 Patient encounter procedure [facility]-Laboratory, Phy Office 3rd Flr Start: 03-25-2022 End: 03-25-[address] Max Nunez Work Phone: [facility] Work Phone: Start: 03-25-2022 End: 03-25-[address] [facility] Start: 12-01-2021 End: 12-01-[address] Max Nunez Work Phone: [facility] Start: 08-12-2021 End: 08-12-2021 Patient encounter procedure [facility]Laboratory, Phy Office 3rd Flr Start: 05-06-2021 Patient encounter procedure [facility]Labor[facility] Start: 04-30-2021 End: 04-30-2021 Patient encounter procedure [facility]-Laboratory, Specimen Procedures Date Procedure Procedure Detail Performing Clinician Start: 10-24-2024 Vitamin D, 25-hydrox y measurement Dr. Max Nunez MD Work Phone: Comment on above: Vitamin D StatusDefi ciency: <20 ng/mL (50nmol/L)Insufficiency: 20-30 ng/mL (50-75 nmol/L)Sufficiency: 30-100 ng/mL (75-250 nmol/L)Toxicity: >100 ng/mL (>250 nmol/L) Start: 05-06-2021 Diagnostic radiograp hy of abdomen Plan of Treatment Date Care Activity Detail Author Patient Education ED Cellulitis [facility] Work Phone: Patient referral [facility] Work Phone: Payers Date Payer Category Payer Self-pay [id number] 2023 Medicare [id number] 2023 Private Health Insurance [facility] [id number] Unknown [id number] Unknown [id number] Unknown [id number] Unknown [id number] Social History Date Type Detail Facility Start: 11-27-2020 End: 08-08-2022 Tobacco smoking status NHIS Unknown if ever smoked [facility] Start: 01-10-[address] [facility] Start: 01-10-[address] [facility] Start: 08-31-2019 Non-smoker [facility] Start: 1945 Sex Assigned At Male [facility] Start: 04-02-2023 Tobacco smoking stat us NHIS Never smoked tobacco (finding) [facility] Medical Equipment Procedure Code Equipment Code Equipment Origin al Text Equipment Identifier Dates STENT,URETERAL 6 FR PIG [id number] FDA Start: 01-05-2018 STENT,URETERAL 6 FR PIG [id number] FDA Start: 01-05-2018 STENT,URETERAL 6 FR PIG [id number] FDA Start: 01-05-2018 STENT,URETERAL 6 FR PIG [id number] FDA Start: 01-05-2018 STENT,URETERAL 6 FR PIG [id number] FDA Start: 01-05-2018 Evaluation note 09-21-2017 Note Date & Type Note Facility 09-21-2017 Evaluation note Diagnosis Onset Date Cardiac murmur acute Atherosclerotic heart diseas e of [place] coronary artery without angina pectoris chronic Essential hypertension chron ic Presence of stent in coronary artery Sep, 2017 chronic Pure hypercholesterolemia ch ronic [facility] Work Phone: Evaluation note Note Date & Type Note Facility Evaluation note No assessment information availa ble [facility] Work Phone: Reason for referral (narrative) Note Date & Type Note Facility Reason for referral (narrative) No reason for referral information available [facility] Work Phone: Chief Complaint and Reason for Visit Chief Complaint CALCULUS OF KIDNEY Chief Complaint 1 y fu Reason for Visit Cardiac murmur Atherosclerotic heart disease of [place] coronary artery without angina pectoris Essential hypertension Presence of stent in coronary artery Pure hypercholesterolemia Chief Complaint RASH Advance Directives No Advanced Directives Records Found Advance Directive Response Recorded Date/ Time Living Will Yes August 31, 2019 1:05pm Power of Career Development Counselor Yes August 30 0 1:05pm Advance Directive Response Recorded Date/ Time Living Will Yes August 31, 2019 12:05pm Power of Career Development Counselor Yes August 30 0 12:05pm Advance Directive Response Recorded Date/ Time Living Will No August 08, 2022 6:30pm Power of Career Development Counselor No August 08 6:30pm Summary Purpose Family History No Family History Records Found Additional Source Comments Goals (unrecognized section and content) Goals may be documented in a n alternate sectionGoals may be documented in an alternate sectionGoals may be documented in an alternate sectionGoals may be documented in an alternate sectionGoals may be documented in an alternate section Care Teams (unrecognized sec tion and content) Team Status: Active Member Role Status Dates Dr. Max Nunez MD Family Provider Active Dr. Max Nunez MD Primary Care Provider Active Team Status: Inactive Member Role Status Dates Dr. Max Nunez MD Primary Care Provider Active HOPE HERNÁNDEZ Attending Provider Active Team Status: Inactive Member Role Status Dates Dr. Max Nunez MD Primary Care Provider Active Dr. Chirag Rodríguez DO Attending Provider, Emergency Provider Active Team Status: Inactive Member Role Status Dates Dr. Max Nunez MD Primary Care Provider, Attending Provider Active Team Status: Inactive Member Role Status Dates Dr. Max Nunez MD Primary Care Provider Active Start: October 24, 2024 End: October 24, 2024 Dr. Max Nunez MD Attending Provider Active Start: October 24, 2024 End: October 24, 2024 Dr. Max Nunez MD Referring Provider Active Start: October 24, 2024 End: October 24, 2024 (unrecognized sect ion and content) No Status Records Found INFORMATION SOURCE (unrecogn ized section and content) DATE CREATED AUTHOR 04/01/2025 [facility] FOR RECORDS PERTAINING TO PATIENTS WHO ARE OR HAVE BEEN ENROLLED IN A CHEMICAL DEPENDENCY/SUBSTANCEABUSE PROGRAM, SOME INFORMATION MAY BE OMITTED. This clinical summary was aggregated from multiple sources. Caution should be exercised in using it in the provision of clinical care. This summary normalizes information from multiple sources, and as a consequence, information in this document may materially change the coding, format and clinical context of patient data. In addition, data may be omitted in some cases. CLINICAL DECISIONS SHOULD BE BASED ON THE PRIMARY CLINICAL RECORDS. [employer] provides no warranty or guarantee of the accuracy or completeness of information in this document.
[2025-04-26 21:32] LABS: Xtra Tube Kwok EXTRA TUBE
== END | disposition home or self-care (01) ==
LOC: POLAB3 13:31
PROVIDERS: PCP Family Medicine Geriatric Medicine; Visit Provider Family Medicine Geriatric Medicine
DX: I10 Essential (primary) hypertension (principal); E11.65 Type 2 diabetes mellitus with hyperglycemia; E03.9 Hypothyroidism, unspecified; E55.9 Vitamin D deficiency, unspecified; E78.5 Hyperlipidemia, unspecified
CPT/HCPCS: 36415; 80053; 82043; 82306; 82570; 84443; 85025